=== PATIENT | male | born 1950 | race Caucasian/White ===

== ENCOUNTER 2017-07-31 11:24 | Emergency (ER) | payer MEDICARE, OTHER ==
[~2017-07-31 11:24] MED LIST: ALFU10TA18 PO; ATOR40TA71 PO; CHOL100040 PO; ESOM40CA PO; FLUO10TA3 PO; FLUT15.88 EN; FURO20TA4 PO; HYDR200T4 PO; LACT1CAP79 PO; LISI2.5T2 PO; MONT10TA24 PO; MULT-603 PO; TIOT18CA3 IH
[2017-07-31] MEDS ORDERED: HYDROMORPHONE HCL 2 MG/ML VIAL ONE (12:52)
[2017-07-31 12:57] LABS: BASOPHILS % (AUTO) 0.8 % (0.0-5.0); EOSINOPHILS % (AUTO) 1.7 % (0.0-8.0); HEMATOCRIT 45.5 % (42-54); LYMPHOCYTES % (AUTO) 14.4 % (21.0-51.0); MEAN CORPUSCULAR HEMOGLOBIN 29.6 pg (27.0-33.0); MEAN CORPUSCULAR HGB CONC 33.4 g/dL (32.0-36.0); MEAN CORPUSCULAR VOLUME 88.5 fL (79-99); MONOCYTES % (AUTO) 9.9 % (3.0-13.0); NEUTROPHILS % (AUTO) 73.2 % (40.0-77.0); PLATELET COUNT (AUTO) 189 K/uL (130-400); RED BLOOD CELL COUNT(AUTO) 5.14 MIL/uL (4.50-6.20); RED CELL DISTRIBUTION WIDTH 13.8 % (11.0-15.5); WHITE BLOOD COUNT (AUTO) 7.2 K/uL (4.8-10.8)
[2017-07-31 13:03] LABS: CREATININE 1.1 mg/dL (0.5-1.5); POTASSIUM 4.1 mmol/L (3.5-5.1)
[2017-07-31 14:07] LABS: ERYTHROCYTE SEDIMENTATION RATE 5 MM/HR (0-15)
[2017-10-28] MEDS ORDERED: TRAZ-144 PO (18:26)
== END 2017-07-31 15:22 | disposition home or self-care (01) ==
LOC: EDH 11:24
DX: M79.672 Pain in left foot (principal); J45.909 Unspecified asthma, uncomplicated; J44.9 Chronic obstructive pulmonary disease, unspecified; E11.9 Type 2 diabetes mellitus without complications; E78.5 Hyperlipidemia, unspecified; I10 Essential (primary) hypertension; Z87.442 Personal history of urinary calculi; Z95.1 Presence of aortocoronary bypass graft; Z98.890 Other specified postprocedural states; Z87.891 Personal history of nicotine dependence; Z88.5 Allergy status to narcotic agent; Z88.6 Allergy status to analgesic agent
CPT/HCPCS: 36415; 73630; 80048; 84550; 85025; 85651; 96374; 99285; J1170

== ENCOUNTER → 2017-09-20 | Outpatient (CLI) | payer MEDICARE ==
[~2017-09-20] MED LIST changes: +AEC81 PO; +ALBU2.5V2 IH; +CHOL4PAC21 PO; +FAMO20TA8 PO; +HYDR4 PO; +METO-391 PO; +METO-408 PO; +NITR0.4T SL; +PANT40TA PO; +SUCR1TAB2 PO; +TRAZ-144 PO
== END ==
LOC: RAH 14:00
PROVIDERS: ATTEND Internal Medicine
DX: R05 Cough (principal)
CPT/HCPCS: 71046

== ENCOUNTER 2017-10-28 12:44 | Inpatient (IN) | payer MEDICARE ==
[~2017-10-28] VITALS: Ht 172.7 cm; Wt 66.8 kg
[~2017-10-28 12:44] MED LIST changes: -AEC81 PO; -ALBU2.5V2 IH; -CHOL4PAC21 PO; -FAMO20TA8 PO; -HYDR4 PO; -METO-391 PO; -METO-408 PO; -NITR0.4T SL; -PANT40TA PO; -SUCR1TAB2 PO; -TRAZ-144 PO
[2017-10-28 13:06] LABS: BASOPHILS % (AUTO) 0.9 % (0.0-5.0); EOSINOPHILS % (AUTO) 3.1 % (0.0-8.0); HEMATOCRIT 40.7 % (42-54); LYMPHOCYTES % (AUTO) 16.4 % (21.0-51.0); MEAN CORPUSCULAR HEMOGLOBIN 30.2 pg (27.0-33.0); MEAN CORPUSCULAR HGB CONC 34.8 g/dL (32.0-36.0); MONOCYTES % (AUTO) 9.3 % (3.0-13.0); NEUTROPHILS % (AUTO) 70.3 % (40.0-77.0); NUCLEATED RED BLOOD CELLS 0.1 % (0.0-0.19); PLATELET COUNT (AUTO) 167 K/uL (130-400); RED BLOOD CELL COUNT(AUTO) 4.67 MIL/uL (4.50-6.20); RED CELL DISTRIBUTION WIDTH 13.8 % (11.0-15.5); WHITE BLOOD COUNT (AUTO) 6.7 K/uL (4.8-10.8)
[2017-10-28 13:16] LABS: CREATININE 1.2 mg/dL (0.5-1.5); POTASSIUM 4.3 mmol/L (3.5-5.1)
[2017-10-28 13:23] LABS: ALBUMIN 3.5 g/dL (3.5-5.0); BILIRUBIN,TOTAL 1.3 mg/dL (0.2-1.0); TOTAL PROTEIN, SERUM 6.1 g/dL (6.0-8.3)
[2017-10-28 13:34] LABS: INR 0.99 (0.85-1.15); PARTIAL THROMBOPLASTIN TIME 27.1 SEC (26.3-35.5); PROTHROMBIN TIME 10.4 SEC (9.6-11.6)
[2017-10-28] MEDS ORDERED: ASPIRIN 325 MG TABLET ONE (14:08)
[2017-10-28] MEDS ORDERED: METHYLPREDNISOLONE SOD SUCC 125MG/2ML VIAL ONE (14:08)
[2017-10-28] MEDS ORDERED: IPRATROPIUM/ALBUTEROL SULFATE 3 ML SOLUTION IH ONE ×3 (14:24)
[2017-10-28] MEDS ORDERED: COMPOUND PO MISCELLANEOUS 1 EACH MISC MISC PRN (15:15)
[2017-10-28] MEDS ORDERED: ACETAMINOPHEN 325 MG TAB PO PRN (15:15)
[2017-10-28] MEDS ORDERED: ONDANSETRON HCL MDV 20ML 2 MG/ML VIAL IVP PRN (15:15)
[2017-10-28] MEDS: NITROGLYCERIN 1GM/1 INCH PACKET TD SCH ×2 (15:15→23:44)
[2017-10-28] MEDS: METHYLPREDNISOLONE SOD SUCC 40MG/ML 1ML IVP SCH (15:15)
[2017-10-28] MEDS ORDERED: ENOXAPARIN SODIUM 100 MG/1 ML SQ ONE (15:49)
[2017-10-28] MEDS ORDERED: PANTOPRAZOLE SODIUM 40 MG TABLET.DR PO ONE (15:50)
[2017-10-28] MEDS ORDERED: NITROGLYCERIN 1GM/1 INCH PACKET TD ONE (15:50)
[2017-10-28] MEDS ORDERED: LEVOFLOXACIN 500 MG/D5W 100 ML 100 ML ONE (15:50)
[2017-10-28 17:23] VITALS: BP 129/57
[2017-10-28] MEDS ORDERED: TRAZ-185 PO (18:26)
[2017-10-28] MEDS ORDERED: HYDR4 PO (18:26)
[2017-10-28] MEDS ORDERED: ALBU2.5V2 IH (18:26)
[2017-10-28] MEDS ORDERED: AEC81 PO (18:26)
[2017-10-28 19:05] VITALS: BP 111/57
[2017-10-28 19:40] LABS: CREATINE KINASE MB 3.2 ng/mL (0.5-3.6); CREATINE KINASE, TOTAL 266 U/L (21-232); MYOGLOBIN 91 ng/mL (10-92); TROPONIN I < 0.04 ng/mL (0.00-0.06)
[2017-10-28] MEDS: METOPROLOL TARTRATE 25 MG TAB PO SCH (20:27)
[2017-10-28 23:16] VITALS: BP 129/81
[2017-10-28] MEDS ORDERED: ACETAMINOPHEN-CODEINE 300/30MG TAB PO PRN (23:45)
[2017-10-28] MEDS ORDERED: DiphenhydrAMINE HCL 50 MG/ML VIAL IV PRN (23:45)
[2017-10-29] MEDS: LIDOCAINE HCL 2% VISCOUS 30 ML, MAG HYDROX/AL HYDROX/SIMETH 30 ML, DICYCLOMINE HCL 20 MG PO PRN ×6 (00:43→11:21)
[2017-10-29 01:30] LABS: HEMATOCRIT 41.2 % (42-54); MEAN CORPUSCULAR HEMOGLOBIN 29.7 pg (27.0-33.0); MEAN CORPUSCULAR VOLUME 87.4 fL (79-99); PLATELET COUNT (AUTO) 182 K/uL (130-400); RED BLOOD CELL COUNT(AUTO) 4.71 MIL/uL (4.50-6.20); WHITE BLOOD COUNT (AUTO) 7.9 K/uL (4.8-10.8)
[2017-10-29 01:47] LABS: CREATININE 1.2 mg/dL (0.5-1.5); POTASSIUM 4.8 mmol/L (3.5-5.1)
[2017-10-29 01:57] LABS: CREATINE KINASE MB 3.5 ng/mL (0.5-3.6); CREATINE KINASE, TOTAL 232 U/L (21-232); MYOGLOBIN 138 ng/mL (10-92); TROPONIN I < 0.04 ng/mL (0.00-0.06)
[2017-10-29] MEDS: METHYLPREDNISOLONE SOD SUCC 40MG/ML 1ML IVP SCH ×2 (03:16→15:14)
[2017-10-29 03:24] VITALS: BP 112/64
[2017-10-29] MEDS ORDERED: PANTOPRAZOLE SODIUM 40 MG TABLET.DR PO ONE (06:08)
[2017-10-29] MEDS: PANTOPRAZOLE SODIUM 40 MG TABLET.DR PO SCH (06:27)
[2017-10-29] MEDS: NITROGLYCERIN 1GM/1 INCH PACKET TD SCH ×3 (06:41→22:33)
[2017-10-29 07:00] VITALS: BP 125/65
[2017-10-29] MEDS: ASPIRIN 325MG EC TAB 325 MG TABLET.DR PO SCH (09:39)
[2017-10-29] MEDS: AZITHROMYCIN 500MG+NS 250ML 250 ML IV SCH (09:40)
[2017-10-29] MEDS: METOPROLOL TARTRATE 25 MG TAB PO SCH ×2 (09:40→20:30)
[2017-10-29] MEDS ORDERED: HYDROMORPHONE HCL 2 MG TAB PO PRN (10:00)
[2017-10-29] MEDS: ALBUTEROL SULFATE 0.083% 2.5 MG/3 ML INH IH SCH ×3 (11:13→23:00)
[2017-10-29 11:21] VITALS: BP 133/63
[2017-10-29 16:25] VITALS: BP 98/59
[2017-10-29] MEDS: LACTOBACILLUS RHAMNOSUS GG 1 EACH CAP.SPRINK PO SCH (17:15)
[2017-10-29 19:01] VITALS: BP 104/55
[2017-10-29] MEDS: FLUOXETINE HCL 10 MG CAPSULE PO SCH (20:30)
[2017-10-29] MEDS: MONTELUKAST SODIUM 10 MG TAB PO SCH (20:30)
[2017-10-29] MEDS: ATORVASTATIN CALCIUM 40 MG TABLET PO SCH (20:30)
[2017-10-29] MEDS: TRAZODONE HCL 50 MG TAB PO SCH (20:30)
[2017-10-29] MEDS: ALFUZOSIN HCL 10 MG PO SCH (20:30)
[2017-10-29 22:55] VITALS: BP 120/60
[2017-10-30] VITALS (7 sets, daily range): BP systolic 95–146; BP diastolic 44–85
[2017-10-30] MEDS: METHYLPREDNISOLONE SOD SUCC 40MG/ML 1ML IVP SCH ×2 (02:54→15:14)
[2017-10-30] MEDS: PANTOPRAZOLE SODIUM 40 MG TABLET.DR PO SCH (05:38)
[2017-10-30] MEDS: NITROGLYCERIN 1GM/1 INCH PACKET TD SCH ×2 (05:38→15:14)
[2017-10-30] MEDS: ALBUTEROL SULFATE 0.083% 2.5 MG/3 ML INH IH SCH ×4 (06:08→23:10)
[2017-10-30] MEDS: LACTOBACILLUS RHAMNOSUS GG 1 EACH CAP.SPRINK PO SCH ×2 (07:56→17:01)
[2017-10-30] MEDS: ASPIRIN 325MG EC TAB 325 MG TABLET.DR PO SCH (09:00)
[2017-10-30] MEDS: ***HM***(Cholecalciferol (Vitamin D3) (Vitamin D3) 2,000 UNIT) PO SCH (09:00)
[2017-10-30] MEDS: HYDROXYCHLOROQUINE SULFATE 200 MG TAB PO SCH (10:16)
[2017-10-30] MEDS: LISINOPRIL 2.5 MG TABLET PO SCH (10:16)
[2017-10-30] MEDS: MULTIVITAMIN TABLET PO SCH (10:16)
[2017-10-30] MEDS: METOPROLOL TARTRATE 25 MG TAB PO SCH ×2 (10:16→20:55)
[2017-10-30] MEDS ORDERED: REGADENOSON 0.4 MG/5 ML PF SYG IVP SCH (12:00)
[2017-10-30] MEDS: AZITHROMYCIN 500MG+NS 250ML 250 ML IV SCH (15:14)
[2017-10-30] MEDS: FUROSEMIDE 20 MG TABLET PO SCH (15:17)
[2017-10-30] MEDS: TRAZODONE HCL 50 MG TAB PO SCH (20:54)
[2017-10-30] MEDS: MONTELUKAST SODIUM 10 MG TAB PO SCH (20:54)
[2017-10-30] MEDS: FLUOXETINE HCL 10 MG CAPSULE PO SCH (20:54)
[2017-10-30] MEDS: ATORVASTATIN CALCIUM 40 MG TABLET PO SCH (20:54)
[2017-10-30] MEDS: ALFUZOSIN HCL 10 MG PO SCH (21:00)
[2017-10-31] MEDS: NITROGLYCERIN 1GM/1 INCH PACKET TD SCH ×2 (00:19→06:29)
[2017-10-31 03:24] VITALS: BP 118/65
[2017-10-31] MEDS: METHYLPREDNISOLONE SOD SUCC 40MG/ML 1ML IVP SCH (04:37)
[2017-10-31] MEDS: ALBUTEROL SULFATE 0.083% 2.5 MG/3 ML INH IH SCH ×2 (05:41→11:08)
[2017-10-31] MEDS: PANTOPRAZOLE SODIUM 40 MG TABLET.DR PO SCH (06:29)
[2017-10-31 07:41] VITALS: BP 122/67
[2017-10-31] MEDS: ***HM***(Cholecalciferol (Vitamin D3) (Vitamin D3) 2,000 UNIT) PO SCH (09:00)
[2017-10-31 10:25] LABS: HEMATOCRIT 41.8 % (42-54); MEAN CORPUSCULAR HGB CONC 34.2 g/dL (32.0-36.0); MEAN CORPUSCULAR VOLUME 87.8 fL (79-99); PLATELET COUNT (AUTO) 170 K/uL (130-400); RED BLOOD CELL COUNT(AUTO) 4.76 MIL/uL (4.50-6.20); RED CELL DISTRIBUTION WIDTH 14.2 % (11.0-15.5); WHITE BLOOD COUNT (AUTO) 10.6 K/uL (4.8-10.8)
[2017-10-31 10:32] LABS: CREATININE 1.2 mg/dL (0.5-1.5); POTASSIUM 4.1 mmol/L (3.5-5.1)
[2017-10-31] MEDS: ASPIRIN 325MG EC TAB 325 MG TABLET.DR PO SCH (10:44)
[2017-10-31] MEDS: LISINOPRIL 2.5 MG TABLET PO SCH (10:44)
[2017-10-31] MEDS: METOPROLOL TARTRATE 25 MG TAB PO SCH (10:45)
[2017-10-31] MEDS: LACTOBACILLUS RHAMNOSUS GG 1 EACH CAP.SPRINK PO SCH (10:45)
[2017-10-31] MEDS: MULTIVITAMIN TABLET PO SCH (10:45)
[2017-10-31] MEDS: HYDROXYCHLOROQUINE SULFATE 200 MG TAB PO SCH (10:45)
[2017-10-31] MEDS: FUROSEMIDE 20 MG TABLET PO SCH (10:45)
[2017-10-31 11:21] VITALS: BP 108/47
[2017-10-31] MEDS ORDERED: NITR0.4T SL (11:34)
[2017-10-31] MEDS ORDERED: METO-391 PO (11:34)
[2017-11-01] MEDS ORDERED: PREDNISONE 10 MG TABLET PO SCH (09:00)
== END 2017-10-31 14:35 | disposition home or self-care (01) | DRG 191 ==
LOC: EDH 12:44 → EDHIP 14:24 → OBSVTOIN 14:24 → 2DH 16:38
PROVIDERS: ADMIT Internal Medicine; ATTEND Internal Medicine
DX: J44.1 Chronic obstructive pulmonary disease with (acute) exacerbation (principal); Q21.1 Atrial septal defect; F32.9 Major depressive disorder, single episode, unspecified; E11.9 Type 2 diabetes mellitus without complications; D64.9 Anemia, unspecified; E78.5 Hyperlipidemia, unspecified; G89.29 Other chronic pain; I10 Essential (primary) hypertension; I25.119 Atherosclerotic heart disease of native coronary artery with unspecified angina pectoris; Z87.442 Personal history of urinary calculi; Z87.891 Personal history of nicotine dependence; Z95.1 Presence of aortocoronary bypass graft; Z95.5 Presence of coronary angioplasty implant and graft
CPT/HCPCS: 36415; 71045; 78452; 80048; 80053; 80061; 82550; 82553; 83690; 83874; 84484; 85025; 85027; 85610; 85730; 93005; 93017; 94640; 94664; 96374; A9500; J0456; J1650; J1956; J2785; J2920; J2930

== ENCOUNTER 2017-11-26 13:16 | Emergency (ER) | payer MEDICARE ==
[~2017-11-26 13:16] MED LIST changes: +AEC81 PO; +ALBU2.5V2 IH; +HYDR4 PO; +METO-391 PO; +NITR0.4T SL; +TRAZ-185 PO
[2017-11-26 13:58] LABS: BASOPHILS % (AUTO) 0.4 % (0.0-5.0); EOSINOPHILS % (AUTO) 0.8 % (0.0-8.0); HEMATOCRIT 46.4 % (42-54); LYMPHOCYTES % (AUTO) 11.1 % (21.0-51.0); MEAN CORPUSCULAR HEMOGLOBIN 29.3 pg (27.0-33.0); MEAN CORPUSCULAR HGB CONC 33.4 g/dL (32.0-36.0); MEAN CORPUSCULAR VOLUME 87.9 fL (79-99); MONOCYTES % (AUTO) 10.5 % (3.0-13.0); NEUTROPHILS % (AUTO) 77.2 % (40.0-77.0); PLATELET COUNT (AUTO) 203 K/uL (130-400); RED BLOOD CELL COUNT(AUTO) 5.28 MIL/uL (4.50-6.20); RED CELL DISTRIBUTION WIDTH 14.1 % (11.0-15.5); WHITE BLOOD COUNT (AUTO) 7.3 K/uL (4.8-10.8)
[2017-11-26] MEDS ORDERED: IPRATROPIUM/ALBUTEROL SULFATE 3 ML SOLUTION IH ONE (14:00)
[2017-11-26 14:05] LABS: CREATININE 1.3 mg/dL (0.5-1.5); POTASSIUM 3.7 mmol/L (3.5-5.1)
[2017-11-26 14:07] LABS: PARTIAL THROMBOPLASTIN TIME 26.1 SEC (26.3-35.5); PROTHROMBIN TIME 10.5 SEC (9.6-11.6)
[2017-11-26] MEDS ORDERED: ONDANSETRON HCL 4 MG/2 ML VIAL ONE (14:13)
[2017-11-26] MEDS ORDERED: FENTANYL CITRATE PF 50 MCG/1 ML 2ML VIAL ONE (14:14)
[2017-11-26 14:20] LABS: CREATINE KINASE MB 1.8 ng/mL (0.5-3.6)
[2017-11-26 14:50] LABS: APPEARANCE,URINE Clear (CLEAR); BILIRUBIN,URINE Negative (NEGATIVE); COLOR,URINE Dark Yellow (YELLOW); GLUCOSE, URINE (UA) Negative (NEGATIVE); KETONES,URINE Negative (NEGATIVE); LEUKOCYTE ESTERASE ,URINE Small (NEGATIVE); NITRATE,URINE Negative (NEGATIVE); OCCULT BLOOD,URINE Trace (NEGATIVE); PROTEIN,URINE Trace (NEGATIVE)
[2017-11-26 15:17] LABS: BACTERIA,URINE Rare /HPF (None Seen)
[2017-11-26 15:21] LABS: SQUAMOUS EPITHELIAL CELL,UR Rare /HPF (0-2)
[2017-11-26] MEDS ORDERED: HYDROMORPHONE HCL 0.5 MG/0.5 ML ML ONE (15:44)
== END 2017-11-26 16:43 | disposition home or self-care (01) ==
LOC: EDH 13:16
DX: J44.1 Chronic obstructive pulmonary disease with (acute) exacerbation (principal); R10.9 Unspecified abdominal pain; N28.1 Cyst of kidney, acquired; I25.10 Atherosclerotic heart disease of native coronary artery without angina pectoris; E11.9 Type 2 diabetes mellitus without complications; E78.5 Hyperlipidemia, unspecified; Z88.6 Allergy status to analgesic agent; Z88.8 Allergy status to other drugs, medicaments and biological substances; Z90.79 Acquired absence of other genital organ(s); Z95.1 Presence of aortocoronary bypass graft; Z98.890 Other specified postprocedural states; Z87.891 Personal history of nicotine dependence
CPT/HCPCS: 36415; 71045; 74176; 80048; 81001; 82150; 82550; 82553; 83690; 83880; 84484; 85025; 85610; 85730; 93005; 94640; 96374; 96375; 99285; J1170; J2405; J3010

== ENCOUNTER 2017-11-28 07:22 | Emergency (ER) | payer MEDICARE ==
[2017-11-28 07:51] LABS: EOSINOPHILS % (AUTO) 3.6 % (0.0-8.0); HEMATOCRIT 44.9 % (42-54); MEAN CORPUSCULAR HEMOGLOBIN 29.3 pg (27.0-33.0); MEAN CORPUSCULAR HGB CONC 33.5 g/dL (32.0-36.0); MEAN CORPUSCULAR VOLUME 87.5 fL (79-99); MONOCYTES % (AUTO) 10.5 % (3.0-13.0); NEUTROPHILS % (AUTO) 71.9 % (40.0-77.0); PLATELET COUNT (AUTO) 207 K/uL (130-400); RED BLOOD CELL COUNT(AUTO) 5.13 MIL/uL (4.50-6.20); RED CELL DISTRIBUTION WIDTH 14.2 % (11.0-15.5); WHITE BLOOD COUNT (AUTO) 7.9 K/uL (4.8-10.8)
[2017-11-28] MEDS ORDERED: MAG HYDROX/AL HYDROX/SIMETH ES 30 ML SUSP UDCUP ONE (07:51)
[2017-11-28] MEDS ORDERED: METOCLOPRAMIDE 10 MG/2 ML VIAL ONE (07:51)
[2017-11-28] MEDS ORDERED: LIDOCAINE HCL 2% VISCOUS 15 ML UDCUP ONE (07:51)
[2017-11-28] MEDS ORDERED: HYDROMORPHONE HCL 0.5 MG/0.5 ML ML ONE (07:52)
[2017-11-28] MEDS ORDERED: LACTATED RINGERS 1000ML 1,000 ML IV ONE (07:52)
[2017-11-28] MEDS ORDERED: FAMOTIDINE/PF 20 MG/2 ML VIAL IV ONE (07:53)
[2017-11-28] MEDS ORDERED: SODIUM CHLORIDE 0.9% 100 ML IV ONE (07:54)
[2017-11-28 08:08] LABS: CREATININE 1.3 mg/dL (0.5-1.5); POTASSIUM 4.4 mmol/L (3.5-5.1)
[2017-11-28 08:13] LABS: ALBUMIN 3.6 g/dL (3.5-5.0); BILIRUBIN,TOTAL 1.5 mg/dL (0.2-1.0); TOTAL PROTEIN, SERUM 6.9 g/dL (6.0-8.3)
[2017-11-28 09:49] LABS: APPEARANCE,URINE Clear (CLEAR); BILIRUBIN,URINE Negative (NEGATIVE); COLOR,URINE Yellow (YELLOW); GLUCOSE, URINE (UA) Negative (NEGATIVE); KETONES,URINE Negative (NEGATIVE); LEUKOCYTE ESTERASE ,URINE Trace (NEGATIVE); NITRATE,URINE Negative (NEGATIVE); OCCULT BLOOD,URINE Negative (NEGATIVE); PROTEIN,URINE Negative (NEGATIVE)
[2017-11-28 10:00] LABS: BACTERIA,URINE None Seen /HPF (None Seen); RBC,URINE 0-1 /HPF (0-1); SQUAMOUS EPITHELIAL CELL,UR 0-2 /HPF (0-2); WBC,URINE 0-1 /HPF (0-1)
[2017-11-29] MEDS ORDERED: METO-408 PO (17:06)
[2017-11-29] MEDS ORDERED: FAMO20TA8 PO (17:06)
[2017-11-29] MEDS ORDERED: SUCR1TAB2 PO (17:06)
== END 2017-11-28 10:45 | disposition home or self-care (01) ==
LOC: EDH 07:22
DX: K29.70 Gastritis, unspecified, without bleeding (principal); R10.12 Left upper quadrant pain; I25.10 Atherosclerotic heart disease of native coronary artery without angina pectoris; J44.9 Chronic obstructive pulmonary disease, unspecified; E11.9 Type 2 diabetes mellitus without complications; E78.5 Hyperlipidemia, unspecified; Z88.5 Allergy status to narcotic agent; Z88.6 Allergy status to analgesic agent; Z91.041 Radiographic dye allergy status
CPT/HCPCS: 36415; 80053; 81001; 82150; 82550; 83605; 83690; 84484; 85025; 93005; 96374; 96375; 96376; 99285; J1170; J2765; J3490; J7120

== ENCOUNTER 2017-11-29 07:43 | Inpatient (IN) | payer MEDICARE ==
[~2017-11-29] VITALS: Ht 172.7 cm; Wt 70.3 kg
[2017-11-29 08:16] LABS: BASOPHILS % (AUTO) 3.1 % (0.0-5.0); EOSINOPHILS % (AUTO) 3.2 % (0.0-8.0); HEMATOCRIT 43.4 % (42-54); LYMPHOCYTES % (AUTO) 11.2 % (21.0-51.0); MEAN CORPUSCULAR HEMOGLOBIN 29.4 pg (27.0-33.0); MEAN CORPUSCULAR HGB CONC 33.5 g/dL (32.0-36.0); MEAN CORPUSCULAR VOLUME 87.8 fL (79-99); MONOCYTES % (AUTO) 8.3 % (3.0-13.0); NEUTROPHILS % (AUTO) 74.2 % (40.0-77.0); PLATELET COUNT (AUTO) 183 K/uL (130-400); RED BLOOD CELL COUNT(AUTO) 4.95 MIL/uL (4.50-6.20); RED CELL DISTRIBUTION WIDTH 13.9 % (11.0-15.5); WHITE BLOOD COUNT (AUTO) 5.9 K/uL (4.8-10.8)
[2017-11-29 08:28] LABS: CREATININE 1.2 mg/dL (0.5-1.5); POTASSIUM 4.3 mmol/L (3.5-5.1)
[2017-11-29 08:33] LABS: ALBUMIN 3.6 g/dL (3.5-5.0); BILIRUBIN,TOTAL 1.7 mg/dL (0.2-1.0); TOTAL PROTEIN, SERUM 6.6 g/dL (6.0-8.3)
[2017-11-29 08:39] LABS: B-TYPE NATRIURETIC PEPTIDE 181 pg/mL (0-100)
[2017-11-29] MEDS ORDERED: HYOSCYAMINE SULFATE 0.125 MG TAB.SUBL SL ONE (09:11)
[2017-11-29 09:23] LABS: APPEARANCE,URINE Clear (CLEAR); BILIRUBIN,URINE Negative (NEGATIVE); COLOR,URINE Yellow (YELLOW); GLUCOSE, URINE (UA) Negative (NEGATIVE); KETONES,URINE Negative (NEGATIVE); LEUKOCYTE ESTERASE ,URINE Negative (NEGATIVE); NITRATE,URINE Negative (NEGATIVE); OCCULT BLOOD,URINE Negative (NEGATIVE); PROTEIN,URINE Negative (NEGATIVE)
[2017-11-29 09:29] LABS: AMPHET/METH SCREEN,URINE NEGATIVE (NEGATIVE); BARBITURATE SCREEN, URINE NEGATIVE (NEGATIVE); BENZODIAZEPINES SCREEN,URINE NEGATIVE (NEGATIVE); CANNABINOID SCREEN,URINE NEGATIVE (NEGATIVE); COCAINE SCREEN,URINE NEGATIVE (NEGATIVE); OPIATE SCREEN,URINE NEGATIVE (NEGATIVE); PHENCYCLIDINE SCREEN,URINE NEGATIVE (NEGATIVE)
[2017-11-29] MEDS: SODIUM CHLORIDE 0.9% 1000ML 1,000 ML IV SCH (10:45)
[2017-11-29] MEDS ORDERED: SODIUM CHLORIDE 0.9% 1000ML 1,000 ML IV ONE (13:58)
[2017-11-29] MEDS ORDERED: MORPHINE SULFATE 4 MG/1ML SYG ONE (14:11)
[2017-11-29] MEDS ORDERED: ONDANSETRON HCL 4 MG/2 ML VIAL ONE (14:16)
[2017-11-29] MEDS ORDERED: HYDROMORPHONE HCL 0.5 MG/0.5 ML ML ONE (14:39)
[2017-11-29] MEDS ORDERED: ACETAMINOPHEN 325 MG TAB PO PRN (15:00)
[2017-11-29 16:20] VITALS: BP 143/60
[2017-11-29] MEDS ORDERED: SUCR1TAB2 PO (17:06)
[2017-11-29] MEDS ORDERED: FAMO20TA8 PO (17:06)
[2017-11-29] MEDS ORDERED: METO-408 PO (17:06)
[2017-11-29 20:00] VITALS: BP 133/70
[2017-11-29] MEDS ORDERED: NITROGLYCERIN 0.4 MG SL TAB SL SCH (20:00)
[2017-11-29] MEDS ORDERED: NON-FORMULARY MEDICATION 1 EACH (Hydromorphone HCl (Dilaudid) 4 MG) PO PRN (20:00)
[2017-11-29] MEDS ORDERED: ALBUTEROL SULFATE 0.083% 2.5 MG/3 ML INH IH ONE (20:31)
[2017-11-29] MEDS: ALFUZOSIN HCL 10 MG PO SCH (21:00)
[2017-11-29] MEDS: ATORVASTATIN CALCIUM 40 MG TABLET PO SCH (21:20)
[2017-11-29] MEDS: MONTELUKAST SODIUM 10 MG TAB PO SCH (21:20)
[2017-11-29] MEDS: FLUOXETINE HCL 10 MG CAPSULE PO SCH (21:21)
[2017-11-29] MEDS: TRAZODONE HCL 50 MG TAB PO SCH (21:21)
[2017-11-29] MEDS: SUCRALFATE 1 GM TABLET PO SCH (21:21)
[2017-11-29] MEDS: METOPROLOL TARTRATE 25 MG TAB PO SCH (21:22)
[2017-11-29 23:51] VITALS: BP 130/72
[2017-11-30] MEDS ORDERED: ALBUTEROL SULFATE 0.083% 2.5 MG/3 ML INH IH SCH
[2017-11-30] MEDS: SODIUM CHLORIDE 0.9% 1000ML 1,000 ML IV SCH ×3 (00:05→20:56)
[2017-11-30] MEDS: IPRATROPIUM/ALBUTEROL SULFATE 3 ML SOLUTION IH SCH ×5 (01:13→23:18)
[2017-11-30 04:00] VITALS: BP 140/79
[2017-11-30] MEDS: SUCRALFATE 1 GM TABLET PO SCH ×4 (06:17→20:55)
[2017-11-30 07:00] VITALS: BP 124/55
[2017-11-30] MEDS: HYDROXYCHLOROQUINE SULFATE 200 MG TAB PO SCH (08:39)
[2017-11-30] MEDS: HYDROMORPHONE HCL 0.5 MG/0.5 ML ML IVP PRN ×2 (08:39→21:03)
[2017-11-30] MEDS: ASPIRIN 81 MG EC TAB PO SCH (08:39)
[2017-11-30] MEDS: LISINOPRIL 2.5 MG TABLET PO SCH (08:40)
[2017-11-30] MEDS: FUROSEMIDE 20 MG TABLET PO SCH (08:40)
[2017-11-30] MEDS: MULTIVITAMIN TABLET PO SCH (08:40)
[2017-11-30] MEDS: METOPROLOL TARTRATE 25 MG TAB PO SCH ×2 (09:00→20:55)
[2017-11-30] MEDS ORDERED: SUB TO IPRATROPIUM 0.5MG/2.5ML PER P&T IH SCH (09:00)
[2017-11-30] MEDS: ***HM***(Cholecalciferol (Vitamin D3) (Vitamin D3) 2,000 UNIT) PO SCH (09:00)
[2017-11-30 11:00] VITALS: BP 130/53
[2017-11-30 15:00] VITALS: BP 130/69
[2017-11-30 19:45] VITALS: BP 136/68
[2017-11-30] MEDS ORDERED: LACTULOSE 20 GM/30 ML UDCUP PO SCH (20:00)
[2017-11-30] MEDS: ATORVASTATIN CALCIUM 40 MG TABLET PO SCH (20:55)
[2017-11-30] MEDS: MONTELUKAST SODIUM 10 MG TAB PO SCH (20:55)
[2017-11-30] MEDS: TRAZODONE HCL 50 MG TAB PO SCH (20:55)
[2017-11-30] MEDS: FLUOXETINE HCL 10 MG CAPSULE PO SCH (20:55)
[2017-11-30] MEDS: ALFUZOSIN HCL 10 MG PO SCH (20:56)
[2017-11-30 23:35] VITALS: BP 90/52
[2017-12-01] MEDS: SODIUM CHLORIDE 0.9% 1000ML 1,000 ML IV SCH ×2 (02:45→17:54)
[2017-12-01 03:55] VITALS: BP 114/59
[2017-12-01 05:15] LABS: HEMATOCRIT 37.8 % (42-54); MEAN CORPUSCULAR HEMOGLOBIN 29.9 pg (27.0-33.0); MEAN CORPUSCULAR HGB CONC 34.2 g/dL (32.0-36.0); MEAN CORPUSCULAR VOLUME 87.4 fL (79-99); PLATELET COUNT (AUTO) 170 K/uL (130-400); RED BLOOD CELL COUNT(AUTO) 4.33 MIL/uL (4.50-6.20); RED CELL DISTRIBUTION WIDTH 13.8 % (11.0-15.5); WHITE BLOOD COUNT (AUTO) 5.4 K/uL (4.8-10.8)
[2017-12-01 05:19] LABS: CREATININE 1.3 mg/dL (0.5-1.5); POTASSIUM 3.9 mmol/L (3.5-5.1)
[2017-12-01] MEDS: SUCRALFATE 1 GM TABLET PO SCH ×4 (06:08→21:07)
[2017-12-01] MEDS: IPRATROPIUM/ALBUTEROL SULFATE 3 ML SOLUTION IH SCH ×4 (06:56→23:50)
[2017-12-01 07:43] VITALS: BP 125/52
[2017-12-01] MEDS: MULTIVITAMIN TABLET PO SCH (08:13)
[2017-12-01] MEDS: FUROSEMIDE 20 MG TABLET PO SCH (08:13)
[2017-12-01] MEDS: ASPIRIN 81 MG EC TAB PO SCH (08:14)
[2017-12-01] MEDS: HYDROXYCHLOROQUINE SULFATE 200 MG TAB PO SCH (08:14)
[2017-12-01] MEDS: LISINOPRIL 2.5 MG TABLET PO SCH (08:14)
[2017-12-01] MEDS ORDERED: LACTULOSE 20 GM/30 ML UDCUP PO SCH (08:15)
[2017-12-01] MEDS: ***HM***(Cholecalciferol (Vitamin D3) (Vitamin D3) 2,000 UNIT) PO SCH (09:00)
[2017-12-01] MEDS: METOPROLOL TARTRATE 25 MG TAB PO SCH ×2 (09:00→21:07)
[2017-12-01] MEDS: HYDROMORPHONE HCL 0.5 MG/0.5 ML ML IVP PRN ×2 (10:08→18:26)
[2017-12-01 11:20] VITALS: BP 129/60
[2017-12-01] MEDS ORDERED: FUROSEMIDE 10 MG/ML 2ML VIAL ONE (11:49)
[2017-12-01 16:15] VITALS: BP 129/72
[2017-12-01] MEDS: ALFUZOSIN HCL 10 MG PO SCH (19:54)
[2017-12-01 20:00] VITALS: BP 116/63
[2017-12-01] MEDS: MONTELUKAST SODIUM 10 MG TAB PO SCH (21:06)
[2017-12-01] MEDS: TRAZODONE HCL 50 MG TAB PO SCH (21:07)
[2017-12-01] MEDS: FLUOXETINE HCL 10 MG CAPSULE PO SCH (21:07)
[2017-12-01] MEDS: ATORVASTATIN CALCIUM 40 MG TABLET PO SCH (21:07)
[2017-12-02] VITALS: BP 121/60
[2017-12-02 04:00] VITALS: BP 123/63
[2017-12-02] MEDS: SODIUM CHLORIDE 0.9% 1000ML 1,000 ML IV SCH ×2 (04:30→18:45)
[2017-12-02 04:44] LABS: CREATININE 1.2 mg/dL (0.5-1.5); HEMATOCRIT 39.3 % (42-54); MEAN CORPUSCULAR HEMOGLOBIN 29.7 pg (27.0-33.0); MEAN CORPUSCULAR VOLUME 87.3 fL (79-99); PLATELET COUNT (AUTO) 170 K/uL (130-400); RED CELL DISTRIBUTION WIDTH 13.9 % (11.0-15.5); WHITE BLOOD COUNT (AUTO) 6.8 K/uL (4.8-10.8)
[2017-12-02] MEDS: IPRATROPIUM/ALBUTEROL SULFATE 3 ML SOLUTION IH SCH ×3 (06:57→18:00)
[2017-12-02 07:23] VITALS: BP 126/65
[2017-12-02] MEDS ORDERED: LACTULOSE 20 GM/30 ML UDCUP PO SCH (08:45)
[2017-12-02] MEDS: ***HM***(Cholecalciferol (Vitamin D3) (Vitamin D3) 2,000 UNIT) PO SCH (09:00)
[2017-12-02] MEDS: SUCRALFATE 1 GM TABLET PO SCH ×4 (09:03→21:07)
[2017-12-02] MEDS: HYDROXYCHLOROQUINE SULFATE 200 MG TAB PO SCH (09:03)
[2017-12-02] MEDS: ASPIRIN 81 MG EC TAB PO SCH (09:03)
[2017-12-02] MEDS: METOPROLOL TARTRATE 25 MG TAB PO SCH ×2 (09:04→21:07)
[2017-12-02] MEDS: MULTIVITAMIN TABLET PO SCH (09:04)
[2017-12-02] MEDS: LISINOPRIL 2.5 MG TABLET PO SCH (09:04)
[2017-12-02] MEDS: FUROSEMIDE 20 MG TABLET PO SCH (09:05)
[2017-12-02 11:15] VITALS: BP 122/76
[2017-12-02] MEDS: HYDROMORPHONE HCL 0.5 MG/0.5 ML ML IVP PRN ×2 (14:16→22:21)
[2017-12-02 16:00] VITALS: BP 138/83
[2017-12-02] MEDS ORDERED: HYDROCORTISONE 25 MG SUPPOSITORY PR SCH (16:15)
[2017-12-02] MEDS ORDERED: LACTULOSE 20 GM/30 ML UDCUP PO PRN (16:45)
[2017-12-02 20:08] VITALS: BP 156/84
[2017-12-02] MEDS: ALFUZOSIN HCL 10 MG PO SCH (21:00)
[2017-12-02] MEDS: FLUOXETINE HCL 10 MG CAPSULE PO SCH (21:07)
[2017-12-02] MEDS: MONTELUKAST SODIUM 10 MG TAB PO SCH (21:07)
[2017-12-02] MEDS: ATORVASTATIN CALCIUM 40 MG TABLET PO SCH (21:07)
[2017-12-02] MEDS: TRAZODONE HCL 50 MG TAB PO SCH (21:07)
[2017-12-03 00:08] VITALS: BP 143/78
[2017-12-03 04:08] VITALS: BP 125/74
[2017-12-03 04:42] LABS: HEMATOCRIT 41.6 % (42-54); MEAN CORPUSCULAR HEMOGLOBIN 29.4 pg (27.0-33.0); MEAN CORPUSCULAR HGB CONC 33.4 g/dL (32.0-36.0); NUCLEATED RED BLOOD CELLS 0.1 % (0.0-0.19); PLATELET COUNT (AUTO) 206 K/uL (130-400); RED BLOOD CELL COUNT(AUTO) 4.73 MIL/uL (4.50-6.20); WHITE BLOOD COUNT (AUTO) 9.7 K/uL (4.8-10.8)
[2017-12-03 04:45] LABS: CREATININE 1.1 mg/dL (0.5-1.5); POTASSIUM 3.2 mmol/L (3.5-5.1)
[2017-12-03] MEDS ORDERED: POTASSIUM CHLORIDE 20 MEQ ERTAB PO ONE (04:51)
[2017-12-03] MEDS ORDERED: LIDOCAINE HCL-MPF 1% 2ML VIAL IVP PRN (05:00)
[2017-12-03] MEDS ORDERED: POTASSIUM CHLORIDE 20MEQ/100ML 100 ML IV PRN (05:00)
[2017-12-03] MEDS ORDERED: POTASSIUM CHLORIDE 10% ELIXIR 20 MEQ/15 ML UDCUP PO PRN (05:00)
[2017-12-03] MEDS: IPRATROPIUM/ALBUTEROL SULFATE 3 ML SOLUTION IH SCH ×4 (06:00→18:21)
[2017-12-03] MEDS: SUCRALFATE 1 GM TABLET PO SCH ×4 (06:54→20:11)
[2017-12-03] MEDS: POTASSIUM CHLORIDE 20 MEQ ERTAB PO PRN ×2 (06:55→10:56)
[2017-12-03 08:26] VITALS: BP 114/77
[2017-12-03] MEDS: ***HM***(Cholecalciferol (Vitamin D3) (Vitamin D3) 2,000 UNIT) PO SCH (09:00)
[2017-12-03] MEDS: ASPIRIN 81 MG EC TAB PO SCH (10:52)
[2017-12-03] MEDS: MULTIVITAMIN TABLET PO SCH (10:52)
[2017-12-03] MEDS: LISINOPRIL 2.5 MG TABLET PO SCH (10:52)
[2017-12-03] MEDS: FUROSEMIDE 20 MG TABLET PO SCH (10:52)
[2017-12-03] MEDS: METOPROLOL TARTRATE 25 MG TAB PO SCH ×2 (10:53→20:11)
[2017-12-03] MEDS: HYDROXYCHLOROQUINE SULFATE 200 MG TAB PO SCH (10:55)
[2017-12-03] MEDS: HYDROMORPHONE HCL 0.5 MG/0.5 ML ML IVP PRN ×3 (11:00→21:46)
[2017-12-03] MEDS: ONDANSETRON HCL 4 MG/2 ML VIAL IVP PRN ×3 (11:13→18:34)
[2017-12-03 11:35] VITALS: BP 157/79
[2017-12-03 16:22] VITALS: BP 126/64
[2017-12-03] MEDS ORDERED: PEG 3350/NA SULF,BICARB,CL/KCL 4000 ML SOLN PO SCH (18:00)
[2017-12-03] MEDS: MONTELUKAST SODIUM 10 MG TAB PO SCH (20:11)
[2017-12-03] MEDS: FLUOXETINE HCL 10 MG CAPSULE PO SCH (20:11)
[2017-12-03] MEDS: TRAZODONE HCL 50 MG TAB PO SCH (20:11)
[2017-12-03] MEDS: ATORVASTATIN CALCIUM 40 MG TABLET PO SCH (20:11)
[2017-12-03] MEDS: ALFUZOSIN HCL 10 MG PO SCH (20:12)
[2017-12-03 20:20] VITALS: BP 135/75
[2017-12-04] VITALS (18 sets, daily range): BP systolic 89–135; BP diastolic 38–71
[2017-12-04] MEDS: IPRATROPIUM/ALBUTEROL SULFATE 3 ML SOLUTION IH SCH ×4 (00:34→19:30)
[2017-12-04] MEDS: HYDROMORPHONE HCL 0.5 MG/0.5 ML ML IVP PRN ×2 (02:53→07:21)
[2017-12-04 04:55] LABS: BASOPHILS % (AUTO) 0.4 % (0.0-5.0); EOSINOPHILS % (AUTO) 0.7 % (0.0-8.0); HEMATOCRIT 38.5 % (42-54); LYMPHOCYTES % (AUTO) 11.7 % (21.0-51.0); MEAN CORPUSCULAR HEMOGLOBIN 29.7 pg (27.0-33.0); MEAN CORPUSCULAR VOLUME 87.5 fL (79-99); MONOCYTES % (AUTO) 12.5 % (3.0-13.0); NEUTROPHILS % (AUTO) 74.7 % (40.0-77.0); PLATELET COUNT (AUTO) 205 K/uL (130-400); RED CELL DISTRIBUTION WIDTH 13.7 % (11.0-15.5); WHITE BLOOD COUNT (AUTO) 9.7 K/uL (4.8-10.8)
[2017-12-04 05:07] LABS: CREATININE 1.3 mg/dL (0.5-1.5); MAGNESIUM 1.5 mg/dL (1.80-2.40); POTASSIUM 3.5 mmol/L (3.5-5.1)
[2017-12-04] MEDS: SUCRALFATE 1 GM TABLET PO SCH ×4 (06:21→20:50)
[2017-12-04] MEDS: ONDANSETRON HCL 4 MG/2 ML VIAL IVP PRN (07:21)
[2017-12-04] MEDS: METOPROLOL TARTRATE 25 MG TAB PO SCH ×2 (07:58→20:57)
[2017-12-04] MEDS: ***HM***(Cholecalciferol (Vitamin D3) (Vitamin D3) 2,000 UNIT) PO SCH (09:00)
[2017-12-04] MEDS ORDERED: MAGNESIUM 2GM PREMIX 50ML 50 ML IV SCH (11:00)
[2017-12-04] MEDS ORDERED: PROPOFOL 10 MG/ML 20ML VIAL IV ONE ×2 (12:15→12:32)
[2017-12-04] MEDS: ASPIRIN 81 MG EC TAB PO SCH (17:21)
[2017-12-04] MEDS: MULTIVITAMIN TABLET PO SCH (17:21)
[2017-12-04] MEDS: LISINOPRIL 2.5 MG TABLET PO SCH (17:21)
[2017-12-04] MEDS: FUROSEMIDE 20 MG TABLET PO SCH (17:22)
[2017-12-04] MEDS: HYDROXYCHLOROQUINE SULFATE 200 MG TAB PO SCH (17:23)
[2017-12-04] MEDS: ALFUZOSIN HCL 10 MG PO SCH (20:50)
[2017-12-04] MEDS: FLUOXETINE HCL 10 MG CAPSULE PO SCH (20:50)
[2017-12-04] MEDS: ATORVASTATIN CALCIUM 40 MG TABLET PO SCH (20:50)
[2017-12-04] MEDS: MONTELUKAST SODIUM 10 MG TAB PO SCH (20:50)
[2017-12-04] MEDS: TRAZODONE HCL 50 MG TAB PO SCH (20:50)
[2017-12-05 00:20] VITALS: BP 110/53
[2017-12-05] MEDS: IPRATROPIUM/ALBUTEROL SULFATE 3 ML SOLUTION IH SCH ×3 (00:25→10:57)
[2017-12-05 04:36] VITALS: BP 159/58
[2017-12-05 04:59] LABS: BASOPHILS % (AUTO) 0.7 % (0.0-5.0); LYMPHOCYTES % (AUTO) 16.4 % (21.0-51.0); MEAN CORPUSCULAR HEMOGLOBIN 29.5 pg (27.0-33.0); MEAN CORPUSCULAR HGB CONC 33.7 g/dL (32.0-36.0); MEAN CORPUSCULAR VOLUME 87.3 fL (79-99); MONOCYTES % (AUTO) 13.4 % (3.0-13.0); NEUTROPHILS % (AUTO) 67.5 % (40.0-77.0); PLATELET COUNT (AUTO) 157 K/uL (130-400); RED BLOOD CELL COUNT(AUTO) 4.12 MIL/uL (4.50-6.20); RED CELL DISTRIBUTION WIDTH 13.6 % (11.0-15.5); WHITE BLOOD COUNT (AUTO) 6.3 K/uL (4.8-10.8)
[2017-12-05] MEDS: HYDROMORPHONE HCL 0.5 MG/0.5 ML ML IVP PRN (05:13)
[2017-12-05 05:19] LABS: ALBUMIN 2.8 g/dL (3.5-5.0); BILIRUBIN,TOTAL 1.2 mg/dL (0.2-1.0); CREATININE 1.2 mg/dL (0.5-1.5); MAGNESIUM 1.6 mg/dL (1.80-2.40); POTASSIUM 3.6 mmol/L (3.5-5.1); TOTAL PROTEIN, SERUM 5.5 g/dL (6.0-8.3)
[2017-12-05 08:00] VITALS: BP 116/58
[2017-12-05] MEDS: HYDROXYCHLOROQUINE SULFATE 200 MG TAB PO SCH (08:25)
[2017-12-05] MEDS: FUROSEMIDE 20 MG TABLET PO SCH (08:25)
[2017-12-05] MEDS: MULTIVITAMIN TABLET PO SCH (08:25)
[2017-12-05] MEDS: METOPROLOL TARTRATE 25 MG TAB PO SCH (08:26)
[2017-12-05] MEDS: ASPIRIN 81 MG EC TAB PO SCH (08:26)
[2017-12-05] MEDS: SUCRALFATE 1 GM TABLET PO SCH ×2 (08:26→12:27)
[2017-12-05] MEDS: ***HM***(Cholecalciferol (Vitamin D3) (Vitamin D3) 2,000 UNIT) PO SCH (08:27)
[2017-12-05] MEDS: LISINOPRIL 2.5 MG TABLET PO SCH (08:30)
[2017-12-05 11:00] VITALS: BP 129/71
[2017-12-05] MEDS ORDERED: CHOLESTYRAMINE PACKET 4 GM PACKET PO SCH (12:00)
[2017-12-05] MEDS ORDERED: SIMETHICONE 80 MG TAB.CHEW PO PRN (13:00)
[2017-12-05] MEDS ORDERED: MAGNESIUM 2GM PREMIX 50ML 50 ML IV SCH (13:15)
[2017-12-05] MEDS ORDERED: CHOL4PAC21 PO (15:30)
[2017-12-05] MEDS ORDERED: PANT40TA PO (15:31)
== END 2017-12-05 17:07 | disposition home or self-care (01) | DRG 378 ==
LOC: EDH 07:43 → EDHIP 10:00 → 4AH 14:57 → 4BH 15:26
PROVIDERS: ADMIT Family Medicine; ATTEND Family Medicine
PROC: 0DBH8ZZ Excision of Cecum, Via Natural or Artificial Opening Endoscopic (ICD-10-PCS; principal; 2017-12-04)
PROC: 0DBL8ZZ Excision of Transverse Colon, Via Natural or Artificial Opening Endoscopic (ICD-10-PCS; 2017-12-04)
PROC: 0DBK8ZX Excision of Ascending Colon, Via Natural or Artificial Opening Endoscopic, Diagnostic (ICD-10-PCS; 2017-12-04)
PROC: 0DBM8ZX Excision of Descending Colon, Via Natural or Artificial Opening Endoscopic, Diagnostic (ICD-10-PCS; 2017-12-04)
DX: K92.1 Melena (principal); J98.11 Atelectasis; K64.9 Unspecified hemorrhoids; N20.0 Calculus of kidney; K52.9 Noninfective gastroenteritis and colitis, unspecified; K21.9 Gastro-esophageal reflux disease without esophagitis; D64.9 Anemia, unspecified; E11.9 Type 2 diabetes mellitus without complications; E78.5 Hyperlipidemia, unspecified; F32.9 Major depressive disorder, single episode, unspecified; G14 Postpolio syndrome; I10 Essential (primary) hypertension; I25.10 Atherosclerotic heart disease of native coronary artery without angina pectoris; J44.9 Chronic obstructive pulmonary disease, unspecified; K59.00 Constipation, unspecified; G89.29 Other chronic pain; Z95.1 Presence of aortocoronary bypass graft; Z88.5 Allergy status to narcotic agent; Z87.891 Personal history of nicotine dependence; Z88.8 Allergy status to other drugs, medicaments and biological substances; Z91.041 Radiographic dye allergy status; Z90.49 Acquired absence of other specified parts of digestive tract
CPT/HCPCS: 36415; 71045; 74176; 76700; 78708; 80048; 80053; 80305; 81001; 81003; 82150; 82270; 82550; 82553; 82948; 83605; 83690; 83735; 83880; 84484; 85025; 85027; 85610; 85730; 87507; 88305; 93005; 94640; 94664; A9562; J1170; J1940; J2270; J2405; J2704; J3475; J3480; J3490; J7030

== ENCOUNTER 2018-03-06 15:29 | Emergency (ER) | payer MEDICARE ==
[~2018-03-06 15:29] MED LIST changes: +CHOL4PAC21 PO; -FLUT15.88 EN; -LACT1CAP79 PO; -METO-391 PO; +METO-408 PO; +PANT40TA PO; +SUCR1TAB2 PO
[2018-03-06] MEDS ORDERED: HYDROMORPHONE 1 MG/1 ML AMP ONE (15:59)
[2018-03-06] MEDS ORDERED: ONDANSETRON ODT 4 MG TAB ONE (15:59)
[2018-03-06] MEDS ORDERED: TETANUS/DIPHTHERIA TOXOID [ADULT] 0.5 ML VIAL IM ONE (16:00)
== END 2018-03-06 17:02 | disposition home or self-care (01) ==
LOC: EDH 15:29
DX: S30.0XXA Contusion of lower back and pelvis, initial encounter (principal); J45.909 Unspecified asthma, uncomplicated; I25.10 Atherosclerotic heart disease of native coronary artery without angina pectoris; J44.9 Chronic obstructive pulmonary disease, unspecified; E11.9 Type 2 diabetes mellitus without complications; E78.5 Hyperlipidemia, unspecified; I10 Essential (primary) hypertension; Z87.442 Personal history of urinary calculi; Z88.6 Allergy status to analgesic agent; Z88.8 Allergy status to other drugs, medicaments and biological substances; Z90.49 Acquired absence of other specified parts of digestive tract; Z98.890 Other specified postprocedural states; Z87.891 Personal history of nicotine dependence; W18.39XA Other fall on same level, initial encounter; Y93.01 Activity, walking, marching and hiking; Y92.89 Other specified places as the place of occurrence of the external cause; Y99.8 Other external cause status
CPT/HCPCS: 72100; 90471; 90714; 96372; 99284; J1170

== ENCOUNTER → 2018-03-08 | Outpatient (CLI) | payer MEDICARE | END | disposition home or self-care (01) | LOC: RAH 12:50 | PROVIDERS: ATTEND Internal Medicine | DX: S69.92XA Unspecified injury of left wrist, hand and finger(s), initial encounter (principal); X58.XXXA Exposure to other specified factors, initial encounter; Y93.89 Activity, other specified; Y92.89 Other specified places as the place of occurrence of the external cause; Y99.8 Other external cause status | CPT/HCPCS: 73130 ==

== ENCOUNTER 2018-10-09 10:42 | Emergency (ER) | payer MEDICARE ==
[2018-10-09 11:05] LABS: BASOPHILS % (AUTO) 0.7 % (0.0-5.0); EOSINOPHILS % (AUTO) 1.7 % (0.0-8.0); HEMATOCRIT 39.1 % (42-54); MEAN CORPUSCULAR HEMOGLOBIN 27.3 pg (27.0-33.0); MEAN CORPUSCULAR HGB CONC 32.4 g/dL (32.0-36.0); MEAN CORPUSCULAR VOLUME 84.2 fL (79-99); MONOCYTES % (AUTO) 13.9 % (3.0-13.0); NEUTROPHILS % (AUTO) 73.7 % (40.0-77.0); PLATELET COUNT (AUTO) 164 K/uL (130-400); RED BLOOD CELL COUNT(AUTO) 4.65 MIL/uL (4.50-6.20); RED CELL DISTRIBUTION WIDTH 14.9 % (11.0-15.5); WHITE BLOOD COUNT (AUTO) 8.2 K/uL (4.8-10.8)
[2018-10-09 11:15] LABS: CREATININE 1.2 mg/dL (0.5-1.5); POTASSIUM 4.2 mmol/L (3.5-5.1)
[2018-10-09 11:17] LABS: MAGNESIUM 1.9 mg/dL (1.80-2.40)
[2018-10-09] MEDS ORDERED: METHYLPREDNISOLONE SOD SUCC 40MG/ML 1ML ONE (11:18)
[2018-10-09] MEDS ORDERED: OXYMETAZOLINE HCL SPRAY 15 ML BOTTLE ONE (11:18)
[2018-10-09 11:19] LABS: ALBUMIN 3.3 g/dL (3.5-5.0); BILIRUBIN,TOTAL 1.3 mg/dL (0.2-1.0); TOTAL PROTEIN, SERUM 6.8 g/dL (6.0-8.3)
[2018-10-09] MEDS ORDERED: IPRATROPIUM/ALBUTEROL SULFATE 3 ML SOLUTION IH ONE ×2 (11:26→12:09)
[2018-10-09 11:45] LABS: INR 0.99 (0.85-1.15); PARTIAL THROMBOPLASTIN TIME 30.3 SEC (26.3-35.5); PROTHROMBIN TIME 10.4 SEC (9.6-11.6)
[2018-10-09] MEDS ORDERED: PREDNISONE 20 MG TABLET ONE (12:15)
== END 2018-10-09 12:36 | disposition home or self-care (01) ==
LOC: EDH 10:42
DX: J44.1 Chronic obstructive pulmonary disease with (acute) exacerbation (principal); J06.9 Acute upper respiratory infection, unspecified; I25.10 Atherosclerotic heart disease of native coronary artery without angina pectoris; E11.9 Type 2 diabetes mellitus without complications; E78.5 Hyperlipidemia, unspecified; I10 Essential (primary) hypertension; Z87.442 Personal history of urinary calculi; Z88.6 Allergy status to analgesic agent; Z88.5 Allergy status to narcotic agent; Z91.041 Radiographic dye allergy status; Z90.49 Acquired absence of other specified parts of digestive tract; Z87.891 Personal history of nicotine dependence
CPT/HCPCS: 36415; 71045; 80053; 83605; 83735; 84484; 85025; 85610; 85730; 87804 ×2; 93005; 94640; 96374; 99285; J2920

== ENCOUNTER → 2021-05-12 | Outpatient (CLI) | payer MEDICARE ==
[~2021-05-12] MED LIST changes: -ALFU10TA18 PO; +ALFU10TA9 PO; +LISI2.5T13 PO; -LISI2.5T2 PO; +MONT-39 PO; -MONT10TA24 PO
== END | disposition home or self-care (01) ==
LOC: RAH 14:41
PROVIDERS: ATTEND Urology
DX: N28.1 Cyst of kidney, acquired (principal); N20.0 Calculus of kidney; J90 Pleural effusion, not elsewhere classified
CPT/HCPCS: 74176

== ENCOUNTER → 2023-08-04 | Outpatient (CLI) | payer MEDICARE ==
[~2023-08-04] MED LIST changes: +ACET-2247 PO; +ACET-2743 PO; -AEC81 PO; -ALFU10TA9 PO; +CEFD300C3 PO; -CHOL100040 PO; -CHOL4PAC21 PO; +CHOL500051 PO; -ESOM40CA PO; -FLUO10TA3 PO; +FLUO10TA35 PO; -FURO20TA4 PO; -HYDR200T4 PO; +HYDR200T75 PO; -HYDR4 PO; -MONT-39 PO; -MULT-603 PO; +MULT200T12 PO; -NITR0.4T SL; -SUCR1TAB2 PO; +TAMS-1 PO; -TIOT18CA3 IH
== END | disposition home or self-care (01) ==
LOC: RAH 11:27
PROVIDERS: ATTEND Urology
DX: N20.2 Calculus of kidney with calculus of ureter (principal); M47.815 Spondylosis without myelopathy or radiculopathy, thoracolumbar region
CPT/HCPCS: 74018; 76100

== ENCOUNTER → 2023-08-16 | Outpatient (CLI) | payer MEDICARE | END | disposition home or self-care (01) | LOC: RAH 11:54 | PROVIDERS: ATTEND Urology | DX: N28.1 Cyst of kidney, acquired (principal); N20.0 Calculus of kidney; J84.10 Pulmonary fibrosis, unspecified; M48.56XA Collapsed vertebra, not elsewhere classified, lumbar region, initial encounter for fracture; M47.815 Spondylosis without myelopathy or radiculopathy, thoracolumbar region; N32.89 Other specified disorders of bladder | CPT/HCPCS: 74176 ==

== ENCOUNTER 2023-08-21 03:19 | Emergency (ER) | payer MEDICARE ==
[~2023-08-21] VITALS: Ht 172.7 cm; Wt 64.9 kg
[2023-08-21 03:36] LABS: BASOPHILS # (AUTO) 0.02 K/uL (0.00-0.20); BASOPHILS % (AUTO) 0.2 % (0.0-5.0); EOSINOPHILS # (AUTO) 0.09 K/uL (0.00-0.70); EOSINOPHILS % (AUTO) 0.7 % (0.0-8.0); HEMATOCRIT 39.1 % (42-54); IMMATURE GRANULOCYTE ABSOLUTE 0.06 K/uL (0-1); LYMPHOCYTES # (AUTO) 0.3 K/uL (1.0-4.8); LYMPHOCYTES % (AUTO) 2.6 % (21.0-51.0); MEAN CORPUSCULAR HEMOGLOBIN 28.4 pg (27.0-33.0); MEAN CORPUSCULAR HGB CONC 32.2 g/dL (32.0-36.0); MEAN CORPUSCULAR VOLUME 88.3 fL (79-99); MONOCYTES # (AUTO) 0.7 K/uL (0.1-1.0); MONOCYTES % (AUTO) 5.9 % (3.0-13.0); NEUTROPHILS # (AUTO) 11.2 K/uL (1.8-7.7); NEUTROPHILS % (AUTO) 90.1 % (40.0-77.0); PLATELET COUNT (AUTO) 215 K/uL (130-400); RED BLOOD CELL COUNT(AUTO) 4.43 MIL/uL (4.50-6.20); RED CELL DISTRIBUTION WIDTH 13.1 % (11.0-15.5); WHITE BLOOD COUNT (AUTO) 12.4 K/uL (4.8-10.8)
[2023-08-21 03:37] LABS: APPEARANCE,URINE CLOUDY (CLEAR); BILIRUBIN,URINE NEGATIVE (NEGATIVE); COLOR,URINE LIGHT-YELLOW (YELLOW); GLUCOSE, URINE (UA) NEGATIVE (NEGATIVE); KETONES,URINE NEGATIVE (NEGATIVE); LEUKOCYTE ESTERASE ,URINE 500 Leu/uL (NEGATIVE); NITRATE,URINE NEGATIVE (NEGATIVE); OCCULT BLOOD,URINE MODERATE (NEGATIVE); PROTEIN,URINE 100 mg/dL (NEGATIVE); UROBILINOGEN,URINE 0.2 mg/dL (0.2-1.0)
[2023-08-21 03:38] LABS: ADD UA MICROSCOPIC YES
[2023-08-21] MEDS: ONDANSETRON 4MG INJ IVP ONE (03:38)
[2023-08-21] MEDS: 0.9%NACL 1000ML 1,000 ML IV SCH (03:38)
[2023-08-21] MEDS: FAMOTIDINE 20MG VIAL IV ONE (03:38)
[2023-08-21] MEDS: KETOROLAC 30MG VIAL (30MG/ML) IVP ONE (03:39)
[2023-08-21 03:45] LABS: RAPID GROUP A STREP negative (NEGATIVE)
[2023-08-21 03:46] LABS: BACTERIA,URINE RARE /HPF (None Seen); MUCUS,URINE RARE LPF (None Seen); RBC,URINE TNTC /HPF (0-1); SQUAMOUS EPITHELIAL CELL,UR RARE /HPF (0-2); WBC CLUMP FEW /HPF (0-1); WBC,URINE TNTC /HPF (0-1)
[2023-08-21] MEDS: CEFTRIAXONE 2GM VIAL IVPB ONE (03:46)
[2023-08-21 03:48] LABS: CREATININE 1.2 mg/dL (0.5-1.5); POTASSIUM 3.9 mmol/L (3.5-5.1)
[2023-08-21 03:51] LABS: SARS-CoV-2, RNA, NAAT NEGATIVE SARS CoV-2 (NEGATIVE)
[2023-08-21 03:53] LABS: ALBUMIN 3.1 g/dL (3.5-5.0); TOTAL PROTEIN, SERUM 7.3 g/dL (6.0-8.3)
[2023-08-21 03:56] LABS: INFLUENZA TYPE A Negative For Type A (NEGATIVE); INFLUENZA TYPE B Negative For Type B (NEGATIVE)
[2023-08-21 04:00] LABS: WBC MORPHOLOGY CONSISTENT W/DIFF
[2023-08-21 04:39] VITALS: BP 100/50; PULSE 69; RESP 18; O2SAT 96
[2023-08-21] MEDS ORDERED: OMEP-420 PO (04:47)
[2023-08-21] MEDS ORDERED: FAMO-136 PO (04:47)
[2023-08-21] MEDS ORDERED: CEPH500C2 PO (04:47)
[2023-08-21] MEDS ORDERED: ONDA4TAB10 SL (04:47)
[2023-08-21] MEDS: PROCHLORPERAZINE 10MG/2ML INJ IV ONE (04:52)
[2023-08-21] MEDS: DICYCLOMINE HCL 10 MG/5 ML ML PO SCH (04:52)
[2023-08-21] MEDS: MAG/ALUM/SIMETH 30 ML UDCUP PO ONE (04:52)
[2023-08-22] MEDS ORDERED: CHOL500045 PO (10:01)
[2023-08-22] MEDS ORDERED: ALFU10TA9 PO (10:01)
[2023-08-28] MEDS ORDERED: TAMS-1 PO (08:04)
[2023-08-28] MEDS ORDERED: LISI10TA24 PO (08:04)
== END 2023-08-21 05:08 | disposition home or self-care (01) ==
LOC: EDH 03:19
DX: N39.0 Urinary tract infection, site not specified (principal); K29.70 Gastritis, unspecified, without bleeding; Z79.899 Other long term (current) drug therapy; Z88.5 Allergy status to narcotic agent; Z88.8 Allergy status to other drugs, medicaments and biological substances; Z91.041 Radiographic dye allergy status; Z93.6 Other artificial openings of urinary tract status; Z95.1 Presence of aortocoronary bypass graft; Z95.5 Presence of coronary angioplasty implant and graft; Z20.822 Contact with and (suspected) exposure to COVID-19
CPT/HCPCS: 99284; 74176; 96374; 96375; 87635; 84484; 80053; 85025; 87077; 87088; 87186; 87880; 87804 ×2; 83605; 81001; 36415; 93005; J3490; J7030; J0696; J0780; J2405; J1885

== ENCOUNTER 2023-09-08 09:26 | Day surgery (SDC) | payer MEDICARE ==
[2023-09-06 13:14] LABS: BASOPHILS # (AUTO) 0.04 K/uL (0.00-0.20); BASOPHILS % (AUTO) 0.7 % (0.0-5.0); EOSINOPHILS # (AUTO) 0.12 K/uL (0.00-0.70); EOSINOPHILS % (AUTO) 2.2 % (0.0-8.0); HEMATOCRIT 37.8 % (42-54); IMMATURE GRANULOCYTE ABSOLUTE 0.03 K/uL (0-1); LYMPHOCYTES # (AUTO) 0.9 K/uL (1.0-4.8); LYMPHOCYTES % (AUTO) 15.9 % (21.0-51.0); MEAN CORPUSCULAR HEMOGLOBIN 27.5 pg (27.0-33.0); MEAN CORPUSCULAR HGB CONC 31.7 g/dL (32.0-36.0); MEAN CORPUSCULAR VOLUME 86.7 fL (79-99); MONOCYTES # (AUTO) 0.6 K/uL (0.1-1.0); MONOCYTES % (AUTO) 11.5 % (3.0-13.0); NEUTROPHILS # (AUTO) 3.8 K/uL (1.8-7.7); NEUTROPHILS % (AUTO) 69.2 % (40.0-77.0); PLATELET COUNT (AUTO) 227 K/uL (130-400); RED BLOOD CELL COUNT(AUTO) 4.36 MIL/uL (4.50-6.20); RED CELL DISTRIBUTION WIDTH 13.4 % (11.0-15.5); WHITE BLOOD COUNT (AUTO) 5.5 K/uL (4.8-10.8)
[2023-09-06 13:22] LABS: POTASSIUM 4.3 mmol/L (3.5-5.1)
[2023-09-06 13:24] LABS: PROTHROMBIN TIME 11.8 SEC (9.6-11.6)
[2023-09-06 13:25] LABS: PARTIAL THROMBOPLASTIN TIME 32.7 SEC (26.3-35.5)
[2023-09-06 13:38] VITALS: BP 156/69; PULSE 64; RESP 15
[~2023-09-08] VITALS: Ht 175.3 cm; Wt 64.2 kg
[~2023-09-08 09:26] MED LIST changes: -ACET-2247 PO; -ALBU2.5V2 IH; +ALFU10TA9 PO; -CEFD300C3 PO; +CHOL500045 PO; -CHOL500051 PO; +FAMO20TA8 PO; -LISI2.5T13 PO; -METO-408 PO; -PANT40TA PO; +PANT40TA54 PO; -TAMS-1 PO
[2023-09-08 10:15] VITALS: BP 145/66; PULSE 64; RESP 16
[2023-09-08] MEDS ORDERED: 0.9%NACL 1000ML 1,000 ML IV ONE (11:09)
[2023-09-08] MEDS ORDERED: LIDOCAINE HCL 1% MDV 50ML VIAL ONE (13:31)
[2023-09-08] MEDS ORDERED: IODIXANOL 320 MG/ML 100 ML VIAL ONE (13:32)
[2023-09-08] MEDS ORDERED: DiphenhydrAMINE HCL 50 MG/ML VIAL ONE (13:33)
[2023-09-08] MEDS ORDERED: ONDANSETRON 4MG INJ ONE (14:01)
[2023-09-08] MEDS ORDERED: FENTANYL CITRATE PF 50 MCG/1 ML 2ML VIAL ONE (14:01)
[2023-09-08] MEDS ORDERED: MIDAZOLAM HCL 1 MG/ML 2ML VIAL ONE (14:01)
[2023-09-08 14:30] VITALS: BP 167/79; PULSE 67; RESP 16
== END 2023-09-08 15:10 | disposition home or self-care (01) ==
LOC: DAH 09:26
PROVIDERS: ATTEND Urology
DX: N13.2 Hydronephrosis with renal and ureteral calculous obstruction (principal); N28.1 Cyst of kidney, acquired; R97.20 Elevated prostate specific antigen [PSA]; E83.9 Disorder of mineral metabolism, unspecified; J43.9 Emphysema, unspecified; Z88.6 Allergy status to analgesic agent; Z91.041 Radiographic dye allergy status; Z88.5 Allergy status to narcotic agent; Z88.8 Allergy status to other drugs, medicaments and biological substances; Z82.3 Family history of stroke; Z83.3 Family history of diabetes mellitus; Z80.9 Family history of malignant neoplasm, unspecified; Z83.79 Family history of other diseases of the digestive system; Z79.899 Other long term (current) drug therapy
CPT/HCPCS: 80048; 85025; 85610; 85730; 36415; 50431; J1200; J7030; J1644; Q9967; A4215; A4222; A4221; A4663; A4216; A4606; A4223 ×3; J2250; J2405; J3010; J3490

== ENCOUNTER 2023-09-27 05:29 | Observation (INO) | payer MEDICARE ==
[2023-09-26 12:47] LABS: HEMATOCRIT 41.1 % (42-54); MEAN CORPUSCULAR HEMOGLOBIN 27.5 pg (27.0-33.0); MEAN CORPUSCULAR HGB CONC 31.1 g/dL (32.0-36.0); MEAN CORPUSCULAR VOLUME 88.4 fL (79-99); RED BLOOD CELL COUNT(AUTO) 4.65 MIL/uL (4.50-6.20); RED CELL DISTRIBUTION WIDTH 14.1 % (11.0-15.5); WHITE BLOOD COUNT (AUTO) 6.9 K/uL (4.8-10.8)
[2023-09-26 12:59] LABS: INR <= 0.93 (0.85-1.15); PROTHROMBIN TIME 10.9 SEC (9.6-11.6)
[2023-09-26 13:01] LABS: PARTIAL THROMBOPLASTIN TIME 32.8 SEC (26.3-35.5)
[2023-09-26 13:03] LABS: ALBUMIN 3.4 g/dL (3.5-5.0); BILIRUBIN,TOTAL 0.8 mg/dL (0.2-1.0); CREATININE 1.1 mg/dL (0.5-1.3); POTASSIUM 4.3 mmol/L (3.5-5.1); TOTAL PROTEIN, SERUM 7.9 g/dL (6.0-8.3)
[2023-09-26 13:05] LABS: APPEARANCE,URINE CLEAR (CLEAR); BILIRUBIN,URINE NEGATIVE (NEGATIVE); COLOR,URINE LIGHT-YELLOW (YELLOW); GLUCOSE, URINE (UA) NEGATIVE (NEGATIVE); KETONES,URINE NEGATIVE (NEGATIVE); LEUKOCYTE ESTERASE ,URINE 500 Leu/uL (NEGATIVE); NITRATE,URINE NEGATIVE (NEGATIVE); PH,URINE 5.5 (5.0-8.0); PROTEIN,URINE NEGATIVE (NEGATIVE); UROBILINOGEN,URINE 0.2 mg/dL (0.2-1.0)
[2023-09-26 13:06] LABS: ADD UA MICROSCOPIC YES
[2023-09-26 13:14] LABS: BACTERIA,URINE RARE /HPF (None Seen); MUCUS,URINE RARE LPF (None Seen); SQUAMOUS EPITHELIAL CELL,UR RARE /HPF (0-2); WBC,URINE 51-100 /HPF (0-1)
[2023-09-26 13:15] VITALS: BP 144/65; PULSE 52; RESP 16
[~2023-09-27] VITALS: Ht 172.7 cm; Wt 63.7 kg
[2023-09-27] VITALS (27 sets, daily range): BP systolic 128–167; BP diastolic 55–77; PULSE 51–62; RESP 15–20; O2SAT 99
[~2023-09-27 05:29] MED LIST changes: +ALBUTEROL SULF IH
[2023-09-27] MEDS: LACTATED RINGERS 1000ML 1,000 ML IV ONE (05:51)
[2023-09-27] MEDS ORDERED: FENTANYL CITRATE PF 50 MCG/1 ML 2ML VIAL ONE (06:28)
[2023-09-27] MEDS ORDERED: MIDAZOLAM HCL 1 MG/ML 2ML VIAL ONE (06:28)
[2023-09-27] MEDS ORDERED: PROPOFOL 10 MG/ML 20ML VIAL IV ONE (06:28)
[2023-09-27] MEDS ORDERED: ONDANSETRON 4MG INJ ONE (06:29)
[2023-09-27] MEDS ORDERED: DEXAMETHASONE SOD PHOSPHATE 10MG/ML 1ML VIAL ONE (06:29)
[2023-09-27] MEDS ORDERED: ROCURONIUM BROMIDE 10MG/1ML 5ML VL ONE (06:35)
[2023-09-27] MEDS: ZOSYN 3.375GM+NS 50ML 50 ML ONE (07:00)
[2023-09-27] MEDS: IOHEXOL-350 50ML VIAL IV ONE (07:14)
[2023-09-27] MEDS ORDERED: NEOSTIGMINE METHYLSULFATE 1MG/ML IV ONE (08:24)
[2023-09-27] MEDS ORDERED: GLYCOPYRROLATE 0.2 MG/ML 5 ML VIAL ONE (08:24)
[2023-09-27] MEDS: MEPERIDINE-PF 75 MG/ML SYG IM PRN (10:56)
[2023-09-27] MEDS: LACTATED RINGERS 1000ML 1,000 ML IV SCH (10:58)
[2023-09-27] MEDS ORDERED: ACETAMINOPHEN 325 MG TAB PO PRN (11:00)
[2023-09-27] MEDS ORDERED: ONDANSETRON 4MG INJ IVP PRN (11:00)
[2023-09-27] MEDS: PHARMACY COMMUNICATION MISC SCH (11:30)
[2023-09-27] MEDS: ZOSYN 3.375GM +NS 50ML IV SCH (11:42)
[2023-09-27] MEDS ORDERED: ALBUTEROL MDI IH PRN (13:00)
[2023-09-27] MEDS ORDERED: ALBUHFA IH (15:45)
[2023-09-27] MEDS ORDERED: (Albuterol Sulfate (Ventolin Hfa/Proventil Hfa/Proair Hfa) IH PRN (16:00)
[2023-09-27] MEDS: FLUOXETINE HCL 10 MG CAPSULE PO SCH (20:15)
[2023-09-27] MEDS: TRAZODONE HCL 50 MG TAB PO SCH (20:15)
[2023-09-27] MEDS: ACETAMINOPHEN 500 MG TABLET PO SCH (20:16)
[2023-09-27] MEDS: (Cholecalciferol (Vitamin D3) (Vitamin D3) 125 MCG) PO SCH (20:20)
[2023-09-28] MEDS: DiphenhydrAMINE HCL 50 MG/ML VIAL IV PRN (01:29)
[2023-09-28] MEDS ORDERED: HYDROMORPHONE 0.5 MG SYG (0.5MG/0.5ML) IVP PRN (01:30)
[2023-09-28 04:13] VITALS: BP 139/61; PULSE 60; RESP 18
[2023-09-28 06:15] LABS: BASOPHILS # (AUTO) 0.02 K/uL (0.00-0.20); BASOPHILS % (AUTO) 0.2 % (0.0-5.0); EOSINOPHILS # (AUTO) 0.02 K/uL (0.00-0.70); EOSINOPHILS % (AUTO) 0.2 % (0.0-8.0); HEMATOCRIT 36.7 % (42-54); IMMATURE GRANULOCYTE ABSOLUTE 0.06 K/uL (0-1); LYMPHOCYTES # (AUTO) 0.8 K/uL (1.0-4.8); LYMPHOCYTES % (AUTO) 7.6 % (21.0-51.0); MEAN CORPUSCULAR HEMOGLOBIN 27.5 pg (27.0-33.0); MEAN CORPUSCULAR HGB CONC 30.8 g/dL (32.0-36.0); MEAN CORPUSCULAR VOLUME 89.3 fL (79-99); MONOCYTES # (AUTO) 1.1 K/uL (0.1-1.0); MONOCYTES % (AUTO) 10.4 % (3.0-13.0); NEUTROPHILS # (AUTO) 8.9 K/uL (1.8-7.7); NEUTROPHILS % (AUTO) 81.1 % (40.0-77.0); PLATELET COUNT (AUTO) 211 K/uL (130-400); RED BLOOD CELL COUNT(AUTO) 4.11 MIL/uL (4.50-6.20); RED CELL DISTRIBUTION WIDTH 13.9 % (11.0-15.5)
[2023-09-28 06:40] LABS: CREATININE 1.1 mg/dL (0.5-1.3)
[2023-09-28 08:00] VITALS: BP 105/69; PULSE 50; RESP 18
[2023-09-28] MEDS: PANTOPRAZOLE 40 MG TAB DR PO SCH (08:49)
[2023-09-28] MEDS: ATORVASTATIN 40 MG TABLET PO SCH (08:49)
[2023-09-28] MEDS: HYDROXYCHLOROQUINE SULFATE 200 MG TAB PO SCH (08:49)
[2023-09-28] MEDS: FAMOTIDINE 20MG TAB PO SCH (08:49)
[2023-09-28] MEDS: MULTIVIT MINERALS PO SCH (08:50)
[2023-09-28] MEDS: FOLIC ACID PO SCH (08:50)
[2023-09-28] MEDS ORDERED: LEVO-70 PO (09:56)
[2023-09-28 12:00] VITALS: BP 151/69; PULSE 63; RESP 18
== END 2023-09-28 16:20 | disposition home or self-care (01) ==
LOC: DAH 05:29 → DAHIP 05:30 → 3CH 09:40
PROVIDERS: ADMIT Hospitalist; ATTEND Hospitalist
DX: N13.2 Hydronephrosis with renal and ureteral calculous obstruction (principal); I10 Essential (primary) hypertension; I25.10 Atherosclerotic heart disease of native coronary artery without angina pectoris; E78.2 Mixed hyperlipidemia; J43.9 Emphysema, unspecified; E78.5 Hyperlipidemia, unspecified; Z87.442 Personal history of urinary calculi; Z95.1 Presence of aortocoronary bypass graft; Z93.6 Other artificial openings of urinary tract status; Z79.899 Other long term (current) drug therapy
CPT/HCPCS: 80053; 85027; 85610; 85730; 87088; 81001; 36415 ×3; 74018; 71046; 93005; 96372 ×2; 96365; 52352; 52332; 96366 ×2; 87077; 87186; 82360; 74420; 80048; 85025; A6260; A4600; A4663; A4344; C2617; C1758 ×2; A4354; J7120; J3010; J1100; J3490 ×2; J2250; J2704; J2405; J2710; J2543 ×5; J2175 ×3; Q9967; A4358; C1769; A4649; C1726; A4215; A4223; A4222; A4221; G0378 ×5; J1200

== ENCOUNTER 2023-10-05 10:12 | Inpatient (IN) | payer MEDICARE ==
[~2023-10-05] VITALS: Ht 437.4 cm; Wt 60.8 kg
[~2023-10-05 10:12] MED LIST changes: +ALBUHFA IH; -ALBUTEROL SULF IH; +LEVO-70 PO
[2023-10-05] MEDS ORDERED: ACETAMINOPHEN 500 MG TABLET PO PRN (12:00)
[2023-10-05] MEDS ORDERED: ONDANSETRON 4MG INJ IVP PRN (12:00)
[2023-10-05] MEDS ORDERED: 0.9%NACL 50ML IV SCH (12:00)
[2023-10-05 12:32] LABS: BASOPHILS # (AUTO) 0.05 K/uL (0.00-0.20); BASOPHILS % (AUTO) 0.4 % (0.0-5.0); EOSINOPHILS # (AUTO) 0.05 K/uL (0.00-0.70); EOSINOPHILS % (AUTO) 0.4 % (0.0-8.0); HEMATOCRIT 40.9 % (42-54); IMMATURE GRANULOCYTE ABSOLUTE 0.07 K/uL (0-1); LYMPHOCYTES # (AUTO) 0.8 K/uL (1.0-4.8); LYMPHOCYTES % (AUTO) 6.8 % (21.0-51.0); MEAN CORPUSCULAR HEMOGLOBIN 26.9 pg (27.0-33.0); MEAN CORPUSCULAR HGB CONC 31.3 g/dL (32.0-36.0); MEAN CORPUSCULAR VOLUME 85.9 fL (79-99); MONOCYTES # (AUTO) 1.8 K/uL (0.1-1.0); MONOCYTES % (AUTO) 15.9 % (3.0-13.0); NEUTROPHILS # (AUTO) 8.7 K/uL (1.8-7.7); NEUTROPHILS % (AUTO) 75.9 % (40.0-77.0); PLATELET COUNT (AUTO) 209 K/uL (130-400); RED BLOOD CELL COUNT(AUTO) 4.76 MIL/uL (4.50-6.20); WHITE BLOOD COUNT (AUTO) 11.4 K/uL (4.8-10.8)
[2023-10-05 12:47] LABS: CREATININE 1.2 mg/dL (0.5-1.3); POTASSIUM 3.8 mmol/L (3.5-5.1)
[2023-10-05 12:48] LABS: INR 0.95 (0.85-1.15); PROTHROMBIN TIME 11.2 SEC (9.6-11.6)
[2023-10-05 12:52] LABS: ALBUMIN 3.3 g/dL (3.5-5.0); BILIRUBIN,TOTAL 1.2 mg/dL (0.2-1.0); TOTAL PROTEIN, SERUM 8.3 g/dL (6.0-8.3)
[2023-10-05 13:00] LABS: SARS-CoV-2, RNA, NAAT NEGATIVE SARS CoV-2 (NEGATIVE)
[2023-10-05 13:01] LABS: ADD UA MICROSCOPIC YES; APPEARANCE,URINE CLOUDY (CLEAR); BILIRUBIN,URINE NEGATIVE (NEGATIVE); COLOR,URINE YELLOW (YELLOW); GLUCOSE, URINE (UA) NEGATIVE (NEGATIVE); KETONES,URINE 10 mg/dL (NEGATIVE); LEUKOCYTE ESTERASE ,URINE 500 Leu/uL (NEGATIVE); NITRATE,URINE NEGATIVE (NEGATIVE); OCCULT BLOOD,URINE MODERATE (NEGATIVE); PH,URINE 5.5 (5.0-8.0); PROTEIN,URINE 50 mg/dL (NEGATIVE); UROBILINOGEN,URINE 0.2 mg/dL (0.2-1.0)
[2023-10-05 13:03] LABS: INFLUENZA TYPE A Negative For Type A (NEGATIVE); INFLUENZA TYPE B Negative For Type B (NEGATIVE)
[2023-10-05 13:05] LABS: BACTERIA,URINE RARE /HPF (None Seen); MUCUS,URINE RARE LPF (None Seen); RBC,URINE 51-100 /HPF (0-1); SQUAMOUS EPITHELIAL CELL,UR RARE /HPF (0-2); UNCLASSIFIED CRYSTAL 5 /HPF (None Seen); WBC,URINE TNTC /HPF (0-1)
[2023-10-05 13:15] VITALS: PULSE 78; RESP 18
[2023-10-05 14:04] LABS: ERYTHROCYTE SEDIMENTATION RATE 60 MM/HR (0-20)
[2023-10-05 14:18] VITALS: PULSE 78; RESP 18; O2SAT 97
[2023-10-05] MEDS: ACETAMINOPHEN 325 MG TAB PO ONE (15:59)
[2023-10-05] MEDS: IPRATROPIUM 0.5 MG/2.5 ML INH IH PRN (16:01)
[2023-10-05 20:00] VITALS: BP 126/63; PULSE 69; RESP 17
[2023-10-05] MEDS: FLUOXETINE HCL 10 MG CAPSULE PO SCH (20:51)
[2023-10-05] MEDS: TRAZODONE HCL 50 MG TAB PO SCH (20:51)
[2023-10-05] MEDS: 0.9%NACL 1000ML 1,000 ML IV SCH (20:51)
[2023-10-05] MEDS: ZOSYN 3.375GM +NS 50ML IVPB SCH (20:51)
[2023-10-05] MEDS: ACETAMINOPHEN 500 MG TABLET PO SCH (20:52)
[2023-10-05] MEDS ORDERED: FAMOTIDINE 20MG TAB PO SCH (21:00)
[2023-10-05] MEDS: SODIUM CHLORIDE 3% FOR INHALATION 4 ML/AMP VIAL.NEB IH ONE (21:18)
[2023-10-06] VITALS (9 sets, daily range): BP systolic 129–153; BP diastolic 55–75; PULSE 65–79; RESP 17–19; O2SAT 96–97
[2023-10-06 05:53] LABS: BASOPHILS # (AUTO) 0.04 K/uL (0.00-0.20); BASOPHILS % (AUTO) 0.5 % (0.0-5.0); EOSINOPHILS # (AUTO) 0.27 K/uL (0.00-0.70); EOSINOPHILS % (AUTO) 3.6 % (0.0-8.0); HEMATOCRIT 36.1 % (42-54); IMMATURE GRANULOCYTE ABSOLUTE 0.04 K/uL (0-1); LYMPHOCYTES # (AUTO) 0.7 K/uL (1.0-4.8); LYMPHOCYTES % (AUTO) 9.8 % (21.0-51.0); MEAN CORPUSCULAR HEMOGLOBIN 27.1 pg (27.0-33.0); MEAN CORPUSCULAR HGB CONC 30.7 g/dL (32.0-36.0); MONOCYTES # (AUTO) 1.5 K/uL (0.1-1.0); NEUTROPHILS # (AUTO) 4.9 K/uL (1.8-7.7); NEUTROPHILS % (AUTO) 65.6 % (40.0-77.0); PLATELET COUNT (AUTO) 208 K/uL (130-400); WHITE BLOOD COUNT (AUTO) 7.5 K/uL (4.8-10.8)
[2023-10-06 06:07] LABS: ALBUMIN 2.4 g/dL (3.5-5.0); BILIRUBIN,TOTAL 0.7 mg/dL (0.2-1.0); CREATININE 1.2 mg/dL (0.5-1.3); MAGNESIUM 1.9 mg/dL (1.80-2.40); POTASSIUM 4.4 mmol/L (3.5-5.1); TOTAL PROTEIN, SERUM 6.6 g/dL (6.0-8.3)
[2023-10-06 06:49] LABS: B-TYPE NATRIURETIC PEPTIDE 122 pg/mL (0-100)
[2023-10-06] MEDS: HYDROXYCHLOROQUINE SULFATE 200 MG TAB PO SCH (10:10)
[2023-10-06] MEDS: ATORVASTATIN 40 MG TABLET PO SCH (10:10)
[2023-10-06] MEDS: PANTOPRAZOLE 40 MG TAB DR PO SCH (10:11)
[2023-10-07] VITALS: BP 143/69; PULSE 62; RESP 19
[2023-10-07 04:00] VITALS: BP 143/84; PULSE 56; RESP 19
[2023-10-07 04:47] LABS: BASOPHILS # (AUTO) 0.04 K/uL (0.00-0.20); BASOPHILS % (AUTO) 0.6 % (0.0-5.0); EOSINOPHILS # (AUTO) 0.34 K/uL (0.00-0.70); EOSINOPHILS % (AUTO) 5.5 % (0.0-8.0); IMMATURE GRANULOCYTE ABSOLUTE 0.04 K/uL (0-1); LYMPHOCYTES # (AUTO) 0.9 K/uL (1.0-4.8); LYMPHOCYTES % (AUTO) 13.7 % (21.0-51.0); MEAN CORPUSCULAR HEMOGLOBIN 27.1 pg (27.0-33.0); MEAN CORPUSCULAR HGB CONC 31.4 g/dL (32.0-36.0); MEAN CORPUSCULAR VOLUME 86.2 fL (79-99); NEUTROPHILS # (AUTO) 3.9 K/uL (1.8-7.7); NEUTROPHILS % (AUTO) 63.6 % (40.0-77.0); PLATELET COUNT (AUTO) 248 K/uL (130-400); RED BLOOD CELL COUNT(AUTO) 4.06 MIL/uL (4.50-6.20); WHITE BLOOD COUNT (AUTO) 6.2 K/uL (4.8-10.8)
[2023-10-07 05:01] LABS: ALBUMIN 2.4 g/dL (3.5-5.0); BILIRUBIN,TOTAL 0.7 mg/dL (0.2-1.0); MAGNESIUM 1.9 mg/dL (1.80-2.40); POTASSIUM 4.1 mmol/L (3.5-5.1); TOTAL PROTEIN, SERUM 6.9 g/dL (6.0-8.3)
[2023-10-07 08:00] VITALS: BP 128/70; PULSE 60; RESP 16; O2SAT 96
[2023-10-07 12:00] VITALS: BP 159/69; PULSE 70; RESP 16
== END 2023-10-07 17:45 | disposition home or self-care (01) | DRG 872 ==
LOC: EDH 10:12 → EDHIP 10:13 → 4DH 17:31
PROVIDERS: ADMIT Hospitalist; ATTEND Hospitalist
DX: A41.50 Gram-negative sepsis, unspecified (principal); N13.6 Pyonephrosis; I10 Essential (primary) hypertension; I25.10 Atherosclerotic heart disease of native coronary artery without angina pectoris; Z20.822 Contact with and (suspected) exposure to COVID-19; J44.9 Chronic obstructive pulmonary disease, unspecified; N40.0 Benign prostatic hyperplasia without lower urinary tract symptoms; E11.9 Type 2 diabetes mellitus without complications; Z96.651 Presence of right artificial knee joint; N28.1 Cyst of kidney, acquired; E78.5 Hyperlipidemia, unspecified; E86.0 Dehydration; Z87.891 Personal history of nicotine dependence; Z95.1 Presence of aortocoronary bypass graft; Z87.442 Personal history of urinary calculi; Z90.49 Acquired absence of other specified parts of digestive tract; Z79.899 Other long term (current) drug therapy
CPT/HCPCS: 36415; 71045; 74176; 76770; 80053; 81001; 82948; 83605; 83735; 83880; 85025; 85610; 85651; 85730; 86140; 87040; 87088; 87635; 87804; 93971; 94640; C1894; G0378; J2543; C1750

== ENCOUNTER → 2023-12-27 | Outpatient (CLI) | payer MEDICARE ==
[~2023-12-27] MED LIST changes: +ALFU10TA46 PO; -ALFU10TA9 PO; +DOXY100C5 PO; -FAMO20TA8 PO; -LEVO-70 PO; +LISI2.5T13 PO; +METO-408 PO; +NITR0.4T50 SL; +PRED20TA3 PO
[2023-12-27 14:58] LABS: MAGNESIUM 1.7 mg/dL (1.80-2.40); PHOSPHORUS 4.3 mg/dL (2.5-4.9); URIC ACID 4.7 mg/dL (2.6-7.2)
== END | disposition home or self-care (01) ==
LOC: RAH 13:56
PROVIDERS: ATTEND Urology
DX: N20.0 Calculus of kidney (principal); N28.1 Cyst of kidney, acquired; N32.89 Other specified disorders of bladder; M47.815 Spondylosis without myelopathy or radiculopathy, thoracolumbar region; I70.90 Unspecified atherosclerosis; Z96.0 Presence of urogenital implants; Z79.899 Other long term (current) drug therapy
CPT/HCPCS: 36415; 74176; 82131; 82306; 82310; 83735; 83970; 84100; 84550

== ENCOUNTER 2024-11-05 08:35 | Observation (INO) | payer MEDICARE, OTHER ==
[~2024-11-05] VITALS: Ht 172.7 cm; Wt 70.4 kg
--- NOTE | 2024-11-05 08:49 | EKG ---
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
[2024-11-05] MEDS: 0.9%NACL 1000ML 1,000 ML IV ONE (08:53)
[2024-11-05 08:58] LABS: HEMATOCRIT 40.6 % (42-54); MEAN CORPUSCULAR HEMOGLOBIN 26.3 pg (27.0-33.0); MEAN CORPUSCULAR VOLUME 87.5 fL (79-99); PLATELET COUNT (AUTO) 177 K/uL (130-400); RED BLOOD CELL COUNT(AUTO) 4.64 MIL/uL (4.50-6.20); WHITE BLOOD COUNT (AUTO) 10.6 K/uL (4.8-10.8)
[2024-11-05 09:06] LABS: CREATININE 1.2 mg/dL (0.5-1.3); POTASSIUM 3.7 mmol/L (3.5-5.1)
[2024-11-05 09:09] LABS: INR 0.97 (0.85-1.15); PROTHROMBIN TIME 10.3 SEC (9.6-11.6)
[2024-11-05 09:10] LABS: PARTIAL THROMBOPLASTIN TIME 23.8 SEC (26.3-35.5)
[2024-11-05 09:12] LABS: MAGNESIUM 1.8 mg/dL (1.80-2.40)
[2024-11-05 09:25] LABS: B-TYPE NATRIURETIC PEPTIDE 139 pg/mL (0-100)
--- NOTE | 2024-11-05 09:26 | HMCIMG ---
Exam Type: CT HEAD/BRAIN W/O CONTRAST Clinical Information: SYNCOPAL EPISODE Comparison: None CT Dose Index (CTDI): 57.33 mGy Dose Length Product (DLP): 956.79 total mGy-cm Findings: The examination shows atrophy. There is low attenuation throughout the periventricular white matter locations, consistent with chronic small vessel ischemic changes. No acute intra- or extra-axial fluid collections are seen. There is no evidence of acute or chronic hemorrhage. There is no mass effect or shift of midline structures. There are no areas to suggest acute infarct. The skull windows show no significant abnormalities. IMPRESSION: 1. ATROPHY AND CHRONIC SMALL VESSEL ISCHEMIC CHANGES. This study was performed using dose reduction techniques to include automated exposure control and/or adjustment of the mA and/or kV according to patient size.
--- NOTE | 2024-11-05 09:40 | HMCIMG ---
Exam Type: CHEST 1VW Clinical Information: SYNCOPAL EPISODE Comparison: None Findings: There is cardiomegaly and there is status post median sternotomy. The lungs are clear of infiltrates. Impression: Clear lungs.
--- NOTE | 2024-11-05 09:55 | ERN ---
General Chief Complaint: Syncope Stated Complaint: SYNCOPE Time Seen by MD: 08:52 Source: patient History of Present Illness Initial Comments PATIENT IS A 74-YEAR-OLD MALE COMING IN AFTER HE HAD A SYNCOPAL EPISODE. PER PATIENT HE WAS WALKING DOWN THE STEPS AND COMPLETELY PASSED OUT. HE DOES HAS A HISTORY OF STENT PLACEMENT A YEAR AGO. ALONG WITH THE SYNCOPE PATIENT DID HAVE MILD CHEST PAIN BEFORE THE SYNCOPAL EPISODE. Allergies: Coded Allergies: iodine (Unverified Allergy, Intermediate, 10/15/15) morphine (Unverified Allergy, Intermediate, 10/15/15) meperidine (Unverified Allergy, Mild, 09/28/23) lidocaine (Unverified Allergy, Unknown, 07/17/23) tramadol (Unverified Allergy, Unknown, BLISTERS, REDNESS, 03/01/16) codeine (Unverified Adverse Reaction, Mild, CONSTIPATION, 10/29/17) PATIENT TOLD NURSE, NOT A TRUE ALLERGY; IT CAUSES CONSTIPATION. 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 11/18/23 Prednisone (Prednisone) 20 Mg Tablet, 40 MG PO DAILY for 5 Days, #5 TAB Prov:HUSAM STYLES GENERAL HANDLING SUPERVISOR 11/18/23 Reported Medications Nitroglycerin (Nitroglycerin) 0.4 Mg Tab.subl, 0.4 MG SL AD PRN for CHEST PAIN, TAB.SL 11/10/23 Lisinopril (Lisinopril) 2.5 Mg Tablet, 2.5 MG PO HS, TAB 11/10/23 Metoprolol Succinate (Metoprolol Succinate) 25 Mg Tab.er.24h, 25 MG PO DAILY, TAB 11/10/23 Albuterol Sulfate (Ventolin Hfa/Proventil Hfa/Proair Hfa) 90 Mcg Puff, 90 MCG IH BID PRN for BRONCHOSPASMS, INHALER 2 PUFFS IH BID 09/27/23 Pantoprazole Sodium (Pantoprazole Sodium) 40 Mg Tablet.dr, 40 MG PO DAILY, TAB 09/06/23 Alfuzosin HCl (Alfuzosin HCl) 10 Mg Tab.er.24h, 10 MG PO HS, TAB 08/22/23 Cholecalciferol (Vitamin D3) (Vitamin D3) 125 Mcg (5000 Unit) Tablet, 125 MCG PO HS, TAB 08/22/23 Acetaminophen (Tylenol Extra Strength) 500 Mg Tablet, 1000 MG PO HS, TAB 07/14/23 Multivit-Minerals/Folic Acid (Multivitamin Gummies) 200 Mcg Tab.chew, 200 MCG PO DAILY, TAB.CHEW 07/14/23 Trazodone HCl (Trazodone HCl) 50 Mg Tablet, 50 MG PO HS, TAB 10/28/17 Hydroxychloroquine Sulfate (Hydroxychloroquine Sulfate) 200 Mg Tablet, 200 MG PO AM, TAB 06/11/16 Fluoxetine HCl (Fluoxetine HCl) 10 Mg Tablet, 10 MG PO HS, TAB 11/08/15 Atorvastatin Calcium (Atorvastatin Calcium) 40 Mg Tablet, 40 MG PO DAILY, TAB 11/08/15 Past Medical History Past Medical History: COPD, High Cholesterol, Heart Disease, Kidney Stone, Pneumonia Medical History Other: HX OF PNEUMONIA Past Surgical History: Cholecystectomy, CABG, Other Surgical History Other: R KNEE, L FOOT, AND BACK SX, KIDNEY STONE Social History Social History: Negative, Lives with family ROS Dictation CONSTITUTIONAL: NO CHILLS, NO FEVER, NO WEAKNESS, NO DIAPHORESIS, NO MALAISE. HEAD/FACE: NO SIGNS OF TRAUMA. EENT: NO EYE PAIN, NO BLURRED VISION, NO TEARING, NO DOUBLE VISION, NO EAR PAIN, NO EAR DISCHARGE, NO NOSE PAIN, NO NASAL CONGESTION, NO THROAT PAIN, NO THROAT SWELLING, NO MOUTH PAIN. RESPIRATORY: NO COUGH, NO ORTHOPNEA, NO SOB, NO STRIDOR, NO WHEEZING. CARDIOVASCULAR: NO CHEST PAIN, NO EDEMA, NO PALPITATIONS, NO SYNCOPE. GASTROINTESTINAL/ABDOMINAL: NO ABDOMINAL PAIN, NO CONSTIPATION, NO DIARRHEA, NO NAUSEA, NO VOMITING. GENITOURINARY: NO ABNORMAL DISCHARGE, NO DYSURIA, NO FREQUENT URINATION, NO HEMATURIA. NO COMPLAINTS OF PAIN IN THE GENITALS. MUSCULOSKELETAL: NO BACK PAIN, NO GOUT, NO JOINT PAIN, NO JOINT SWELLING, NO MUSCLE PAIN, NO MUSCLE STIFFNESS, NO NECK PAIN. INTEGUMENTARY: NO CHANGE IN COLOR, NO CHANGE IN HAIR/NAILS, NO DRYNESS, NO LESION, NO LUMPS, NO RASH. NEUROLOGICAL/PSYCH: NO ANXIETY, NOT DEPRESSED, NO EMOTIONAL PROBLEM, NO HEADACHE, NO NUMBNESS, NO PRE-EXISTING DEFICIT, NO HISTORY OF SEIZURES, NO TREMORS, NO WEAKNESS. HEMATOLOGIC/LYMPHATIC: NOT ANEMIC, NO HISTORY OF BLOOD CLOTS, NO APPARENT BLEEDING, NO BRUISING, GLANDS NOT SWOLLEN. ALL SYSTEMS NEGATIVE, EXCEPT NOTED. Physical Exam Physical Exam Dictation VITAL SIGNS: REVIEWED. GENERAL APPEARANCE: ALERT, ORIENTED X3, NO ACUTE DISTRESS, OBESE. HEAD AND FACE: NON-TRAUMATIC. EYES: PERRL, PINK CONJUNCTIVAS, EYELID NO TRAUMA, ANTERIOR CHAMBER CLEAR. EARS: PINNAS INTACT AND NO SIGNS OF TRAUMA OR ERYTHEMA. EAR CANALS CLEAR AND NO DISCHARGE. TMS NO ERYTHEMA. NOSE: NO DISCHARGE, NO BLEEDING. OROPHARYNX: MOUTH NORMAL, TEETH NO CARIES, TONGUE PINK. PHARYNX CLEAR, NO ERYTHEMA. TONSILS NO EXUDATES, NO ABSCESSES NOTED. MUCOUS MEMBRANE MOIST. NECK: SUPPLE, NON-TENDER, NO THYROMEGALY, NO MASSES, NO JVD, NO BRUITS. BREAST: DEFERRED. CHEST: NO TENDERNESS, NO CREPITUS, NO PARADOXICAL MOVEMENT, NO RETRACTIONS. LUNGS: CLEAR, WELL-VENTILATED, SYMMETRIC, NO RALES, NO WHEEZING, NO RHONCHI, NO STRIDOR, GOOD BREATH SOUNDS BILATERALLY. HEART: REGULAR RATE, REGULAR RHYTHM, NO MURMUR, NO GALLOPS. VASCULAR: NO PERIPHERAL EDEMA. ABDOMEN: SOFT, POSITIVE BOWEL SOUNDS, NONDISTENDED, NO GUARDING, NONTENDER, NO REBOUND, NO MASSES NO HEPATOMEGALY, NO SPLENOMEGALY, NO PAYTON'S SIGN, NO HERNIAS. RECTAL: DEFERRED. GENITAL: DEFERRED. NEUROLOGICAL: NORMAL SPEECH, GROSS MOTOR FUNCTION INTACT, GROSS SENSORY FUNCTION INTACT. MUSCULOSKELETAL: NECK NONTENDER, FULL RANGE OF MOTION, BACK NONTENDER, FULL RANGE OF MOTION. EXTREMITIES: NONTENDER, FULL RANGE OF MOTION. SKIN: COLOR PINK, DRY, NO TURGOR, NO RASH, NO LACERATIONS, NO ABRASIONS, NO CONTUSIONS. LYMPHATICS: DEFERRED. Results Laboratory and Microbiology Lab and Micro Result Laboratory Tests Test 11/05/24 08:51 11/05/24 09:59 White Blood Count 10.6 K/uL (4.8-10.8) Red Blood Count 4.64 MIL/uL (4.50-6.20) Hemoglobin 12.2 g/dL (14.0-18.0) L Hematocrit 40.6 % (42-54) L Mean Corpuscular Volume 87.5 fL (79-99) Mean Corpuscular Hemoglobin 26.3 pg (27.0-33.0) L Mean Corpuscular Hemoglobin Concent 30.0 g/dL (32.0-36.0) L Red Cell Distribution Width 16.0 % (11.0-15.5) H Platelet Count 177 K/uL (130-400) Mean Platelet Volume 10.4 fL (7.5-10.5) Nucleated Red Blood Cells 0.0 % (0.0-0.19) Prothrombin Time 10.3 SEC (9.6-11.6) Prothromb Time International Ratio 0.97 (0.85-1.15) Activated Partial Thromboplast Time 23.8 SEC (26.3-35.5) L Sodium Level 143 mmol/L (136-145) Potassium Level 3.7 mmol/L (3.5-5.1) Chloride Level 107 mmol/L (101-111) Carbon Dioxide Level 29 mmol/L (21-32) Blood Urea Nitrogen 22 mg/dL (7-18) H Creatinine 1.2 mg/dL (0.5-1.3) Glomerular Filtration Rate Calc 63 mL/min (>90) Random Glucose 85 mg/dL (70-105) Total Calcium 8.6 mg/dL (8.5-10.1) Magnesium Level 1.80 mg/dL (1.80-2.40) Total Creatine Kinase 180 U/L (21-232) # Troponin I High Sensitivity 44 ng/L (4-75) 50 ng/L (4-75) B-Type Natriuretic Peptide 139 pg/mL (0-100) H Labs Reviewed?: Yes EKG/XRAY/US/CT/MRI EKG Comment 11/05/2024 TIME 8:46 A.M. VENTRICULAR RATE 67 SINUS RHYTHM [place] [address] WAVE ELEVATION OR DEPRESSION X-RAY Comment [place] [address] [address] IMAGING REPORT Signed PATIENT: ATTILA MERLOS MR#: [id number] : 1950 SEX: M AGE: 74 LOCATION: [facility] ORDER STATUS: [facility] REPORT#: [id number] SERVICE REASON: SYNCOPAL EPISODE ORDERING PHYSICIAN: YUSUF ROY MD PROCEDURE: CXR1VW - CHEST 1VW Exam Type: CHEST 1VW Clinical Information: SYNCOPAL EPISODE Comparison: None Findings: There is cardiomegaly and there is status post median sternotomy. The lungs are clear of infiltrates. Impression: Clear lungs. DICTATED BY: LIZY KESSLER MD DATE: 11/05/24936 ELECTRONICALLY SIGNED BY: LIZY KESSLER MD DATE: 11/05/24939 CT Scan Comment [facility] [address] [place] [address] IMAGING REPORT Signed PATIENT: ATTILA MERLOS MR#: [id number] : 1950 SEX: M AGE: 74 LOCATION: [facility] ORDER 7 STATUS: [facility] ER REPORT#: [id number] SERVICE 5 REASON: SYNCOPAL EPISODE ORDERING PHYSICIAN: YUSUF ROY MD PROCEDURE: HEAD WO - CT HEAD/BRAIN W/O CONTRAST Exam Type: CT HEAD/BRAIN W/O CONTRAST Clinical Information: SYNCOPAL EPISODE Comparison: None CT Dose Index (CTDI): 57.33 mGy Dose Length Product (DLP): 956.79 total mGy-cm Findings: The examination shows atrophy. There is low attenuation throughout the periventricular white matter locations, consistent with chronic small vessel ischemic changes. No acute intra- or extra-axial fluid collections are seen. There is no evidence of acute or chronic hemorrhage. There is no mass effect or shift of midline structures. There are no areas to suggest acute infarct. The skull windows show no significant abnormalities. IMPRESSION: 1. ATROPHY AND CHRONIC SMALL VESSEL ISCHEMIC CHANGES. This study was performed using dose reduction techniques to include automated exposure control and/or adjustment of the mA and/or kV according to patient size. DICTATED BY: LIZY KESSLER MD DATE: 11/05/24921 ELECTRONICALLY SIGNED BY: LIZY KESSLER MD DATE: 11/05/24925 [facility] MDM: DIFFERENTIAL DIAGNOSIS: SYNCOPE AND COLLAPSE, HISTORY OF CAD, RATIONALE: TESTS CONSIDERED AND ORDERED SECONDARY TO SHARED DECISION MAKING INCLUDE: LABS, ECG AND RADIOLOGY PREVIOUS OUTSIDE RECORDS REVIEWED: OLD ER VISITS. RISK OF COMPLICATION AND/OR MORBIDITY OR MORTALITY OF PATIENT MANAGEMENT: NONE MEDICATIONS-PER MEDICATION RECONCILIATION NEED FOR HOSPITALIZATION: PATIENT DOES MEET CRITERIA FOR HOSPITALIZATION. NEED FOR EMERGENCY MAJOR/MINOR SURGERY: NO THERE ARE NO SOCIAL CONCERNS WITH THIS PATIENT. PRESCRIPTION DRUG MANAGEMENT PRESCRIPTIONS WILL INCLUDE SYMPTOMATIC CARE PATIENT'S PRIOR EXTERNAL MEDICAL RECORDS FROM OTHER ER VISITS WERE REVIEWED BY ME INDICATED. PRIOR TESTING AND RESULTS FROM PREVIOUS VISITS WERE REVIEWED. PRIOR TESTS WERE TAKEN INTO ACCOUNT WITH MEDICAL DECISION MAKING AND RESOURCE UTILIZATION, INDEPENDENT HISTORIAN/HISTORIANS WERE USED TO OBTAIN COMPLETE MEDICAL HISTORY. I INDEPENDENTLY INTERPRETED THE TEST THAT WERE PERFORMED, RESULTS WERE REVIEWED BY ME AND CONSIDERED FINDINGS ON RADIOLOGY IF ORDERED. MEDICAL MANAGEMENT AND EXAMINATION INTERPRETATION DISCUSSIONS WERE HAD BY ME WITH OTHER QUALIFIED HEALTHCARE PROFESSIONALS INDICATED FOR THE PATIENT'S CARE. SHE WILL BE ADMITTED UNDER THE CARE OF HOSPITALIST GROUP FOR ONGOING MANAGEMENT IN HIS SYNCOPAL FALL. PATIENT DOES HAS A HISTORY OF CAD. ED Course Orders Procedure Category Date Status Time Cbc Without LAB 11/05/24 In Process Differential 08:46 Basic Metabolic Panel LAB 11/05/24 Complete 08:46 B-Type Natriuretic LAB 11/05/24 In Process Peptide 08:46 Troponin I High LAB 11/05/24 Complete Sensitivity 08:46 Chest 1vw RAD 11/05/24 Resulted 08:46 Ct Head/Brain W/O CT 11/05/24 Resulted Contrast 08:46 12 Lead Ekg Tracing- EKG 11/05/24 Complete Technical 08:46 Pt And Ptt LAB 11/05/24 Complete 08:46 Iv Insertion CPOE 11/05/24 Transmitted 08:46 0.9%Nacl 1000ml (Ns PHA 11/05/24 Complete 1000ml) 09:00 Creatine Kinase, Total LAB 11/05/24 Complete 08:46 Magnesium LAB 11/05/24 Complete 08:46 Troponin I High LAB 11/05/24 Complete Sensitivity 09:51 Current Medications Medications (Trade) Dose Ordered Sig/Yakov Route PRN Reason Start Time Stop Time Status Last Admin Dose Admin Sodium Chloride 1,000 ml @ 0 mls/hr Q0M ONCE IV 11/05/24 09:00 11/05/24 09:01 DC 11/05/24 08:53 Vital Signs Date Time Temp Pulse Resp B/P (MAP) Pulse Ox O2 Delivery O2 Flow Rate FiO2 11/05/24 08:56 57 14 145/48 98 Room Air* 0 21 5/19/25 08:36 97.9 57 16 127/82 97 Room Air 0 DX & DISP Disposition: Inpatient Decision to Admit Time: 10:29 Departure Impression: Primary Impression: Syncope Additional Impression: History of CAD (coronary artery disease) Condition: Stable Referrals: NIKI RABAGO MD (PCP) YUSUF ROY MD November 05, 2024 09:55
--- NOTE | 2024-11-05 10:45 | NUR ---
Assumed patients care. Patient is alert, oriented in person, time, situation and place. No signs of respiratory distress noted. No complaints of chest pain or dizziness. Patient able to voice needs. Significant other at bedside. PIV patent, saline lock.
--- NOTE | 2024-11-05 10:46 | NUR ---
PT MOVED TO ER 20. PATIENT REPORT GIVEN TO ANABELLE FRANCO
--- NOTE | 2024-11-05 11:18 | HP ---
[facility] HISTORY AND PHYSICAL Date of Service: November 05, 2024 Time of Service: 11:18 HISTORY OF PRESENT ILLNESS: 73-year-old male with history of hypertension, hyperlipidemia, coronary artery disease with prior history of coronary artery bypass grafting in 2004 with history of subsequent stenting of saphenous vein graft to RCA in 2013, COPD, history of nephrolithiasis who is currently admitted to the hospital status post ureteroscopy with stone basketing and laser lithotripsy by Dr. Garduno on 11/15/2023 who presented to the hospital secondary to syncope. The patient states yesterday while he was walking down from the steps he passed out. He denied having any palpitations, chest pain, shortness of breath, dizziness, fever, chills prior to the event. His stairs around two flight. He additionally stairs he has been having intermittent episodes of midsternal chest pain for the past one week. Patient is not very forthcoming about his symptoms. Denied any pain radiation to the arms, numbness, shortness of breath, diap horesis, nausea, vomiting associated with the pain. During the event patient lost consciousness and fell on his left knee. He is unable to recall if he hit his head. He has never had previous episode of syncopal event. He was scheduled for outpatient stress test but was not able to make it since patient is planning to move out of the [place]. He sees Dr. Stock'alejandro as outpatient. Patient denied any abdominal pain, changes in his bowel movement, dysuria, hematuria. Denied any tongue bites, seizure-like activity during the event. Patient thereafter came to the hospital for further evaluation. Labs in the ED were notable for white count of 10.6, hemoglobin was 12.2, platelet count was 177 K, sodium was 143, potassium was 3.7, creatinine was one point, troponin was negative x2, BNP was [address] was negative for any intracranial. Chest x-ray was negative REVIEW OF SYSTEMS CONSTITUTIONAL: Denies fevers, chills, or night sweats. No unintentional weight loss reported. NEUROLOGICAL: Denies headache, amaurosis fugax, motor weakness, sensory deficit, vertigo/spinning sensation, gait abnormalities, or tremors. Positive for syncope ENT: No hearing loss, otalgia, otorrhea, rhinitis, rhinorrhea, hoarseness, or sore throat. CARDIOVASCULAR: Denies dyspnea on exertion, orthopnea, paroxysmal nocturnal dyspnea, palpitations, life-threatening arrhythmias, claudication. Positive for chest pain PULMONARY: Denies any shortness of breath, cough, phlegm/sputum, hemoptysis, pleuritic chest pain. GASTROINTESTINAL: Denies any type of dysphagia to either liquids or solids. Denies nausea, vomiting, pyrosis, early satiety, abdominal pain, diarrhea, constipation, or changes in stool consistency or caliber. Denies coffee-ground emesis, hematemesis, hematochezia, or melanotic stools. GENITOURINARY: Denies frequency, urgency, nocturia, hematuria or incontinence (Storage/Irritative symptoms.) Low urinary stream, straining to void, urinary intermittency or hesitancy, splitting of the voiding stream, terminal dribbling. ENDOCRINOLOGIC: Denies polyuria, polydipsia, polyphagia or heat/cold intolerances. HEMATOLOGIC: Denies thrombophilia/previous clots, or coagulopathy/bleeding disorders. ONCOLOGIC: Denies personal history of malignancy. DERMATOLOGIC: Denies rashes or pruritus. PSYCHIATRIC: Denies any suicidal or homicidal ideation. Denies hallucinations. PAST MEDICAL HISTORY: hypertension, hyperlipidemia, coronary artery disease with prior history of coronary artery bypass grafting in 2004 with history of subsequent stenting of saphenous vein graft to RCA in 2013, COPD, history of nephrolithiasis PAST SURGICAL HISTORY: Prior coronary artery bypass with subsequent stenting of the saphenous vein graft to the RCA Right total knee arthroplasty Cholecystectomy Appendectomy Surgery for ureteral stricture on the left Right nephrostomy placement, removed on 09/27/2023 recent Hx of Right-sided ureteroscopy and stone basketing procedure with placement of 6 Ethiopian double-J stent on right side on 09/27/2023 PAST SOCIAL HISTORY: Denied any smoking, alcohol, drug FAMILY HISTORY: Denied any pertinent family history Coded Allergies: iodine (Unverified Allergy, Intermediate, 10/15/15) morphine (Unverified Allergy, Intermediate, 10/15/15) meperidine (Unverified Allergy, Mild, 09/28/23) lidocaine (Unverified Allergy, Unknown, 07/17/23) tramadol (Unverified Allergy, Unknown, BLISTERS, REDNESS, 03/01/16) codeine (Unverified Adverse Reaction, Mild, CONSTIPATION, 10/29/17) PATIENT TOLD NURSE, NOT A TRUE ALLERGY; IT CAUSES CONSTIPATION. PHYSICAL EXAM GENERAL APPEARANCE: The patient is awake, alert, and oriented, in no acute cardiopulmonary distress. NEUROLOGICAL: Cranial nerves II-XII grossly intact. Motor is 5/5 in bilateral upper and lower extremities proximal to distal. No sensory deficits. HEENT: Face is symmetric. Pupils are equal and reactive. Extraocular movements are intact. NECK: Supple. No JVD. No thyromegaly. No submental, submandibular, pre- /postauricular, occipital or supraclavicular lymphadenopathy. CHEST: Normal chest expansion. No Telemetry. LUNGS: Mild expiratory wheezing present bilaterally CARDIOVASCULAR: Regular. S1 and S2 normal. No appreciable rubs, murmurs or gallops. ABDOMEN: Soft, nontender, and nondistended. There is no rebound, voluntary guarding, or rigidity. : Deferred. No [place]. EXTREMITIES: Non-edematous and not cyanotic. No clubbing. Good capillary refill. Bruising in the right knee SKIN: No skin breakdown. Vital Sign (Last 24 Hours) 11/05/24 11/05/24 08:36 08:56 Temp 97.9 Pulse 57 Resp 14 B/P (MAP) 145/48 Pulse Ox 98 O2 Delivery Room Air* O2 Flow Rate 0 FiO2 21 LABS: Laboratory: Test 11/05/24 09:59 11/05/24 08:51 Range/Units Troponin I High Sensitivity 50 4-75 ng/L White Blood Count 10.6 4.8-10.8 K/uL Red Blood Count 4.64 4.50-6.20 MIL/uL Hemoglobin 12.2 L 14.0-18.0 g/dL Hematocrit 40.6 L 42-54 % Mean Corpuscular Volume 87.5 79-99 fL Mean Corpuscular Hemoglobin 26.3 L 27.0-33.0 pg Mean Corpuscular Hemoglobin Concent 30.0 L 32.0-36.0 g/dL Red Cell Distribution Width 16.0 H 11.0-15.5 % Platelet Count 177 130-400 K/uL Mean Platelet Volume 10.4 7.5-10.5 fL Nucleated Red Blood Cells 0.0 0.0-0.19 % Red Blood Cell Morphology See comments Prothrombin Time 10.3 9.6-11.6 SEC Prothromb Time International Ratio 0.97 0.85-1.15 Activated Partial Thromboplast Time 23.8 L 26.3-35.5 SEC Sodium Level 143 136-145 mmol/L Potassium Level 3.7 3.5-5.1 mmol/L Chloride Level 107 101-111 mmol/L Carbon Dioxide Level 29 21-32 mmol/L Blood Urea Nitrogen 22 H 7-18 mg/dL Creatinine 1.2 0.5-1.3 mg/dL Glomerular Filtration Rate Calc 63 >90 mL/min Random Glucose 85 70-105 mg/dL Total Calcium 8.6 8.5-10.1 mg/dL Magnesium Level 1.80 1.80-2.40 mg/dL Total Creatine Kinase 180 # 21-232 U/L B-Type Natriuretic Peptide 139 H 0-100 pg/mL DIAGNOSTICS / RADIOLOGY: [ ] ASSESSMENT: Syncope POA Chest pain POA Right knee pain s/p fall Hypertension Hyperlipidemia CAD status post CABG History of COPD BPH History of nephrolithiasis PLAN: - patient to be admitted to PCCU -in reference to syncope. Patient monitored on telemetry we will obtain echocardiogram and carotid ultrasound. We will request PT evaluation -in reference to chest pain we will trend troponins q.6 hours to rule out ACS. Follow up on echocardiogram. Patient was previously scheduled for outpatient stress test request Cardiology consultation -check TSH, A1c, procalcitonin CRP -Obtain home medications which will be reconciled once available -further orders per hospitalization course. Advanced Care Planning Which of the following were discussed: Hospice care: Yes __ No _x_ Therapeutic options: Yes __ No __ Advance directives: Yes __ No __ Other discussions: Discussed with who?: patient (Patient, family or surrogates) Voluntary nature of this service was explained to the patient? Yes _x_ No __ Amount of time spent: 25 minutes BARTOLO Ren MD, MD November 05, 2024 11:18
[2024-11-05] MEDS ORDERED: PoTASSium chloRIDE 20MEQ ER 20 MEQ ERTAB PO PRN (11:30)
[2024-11-05] MEDS ORDERED: PoTASSium chloRIDE 20MEQ/100ML 100 ML IV PRN (11:30)
[2024-11-05] MEDS ORDERED: PoTASSium chl 10% ELIXIR 20MEQ 20 MEQ/15 ML UDCUP PO PRN (11:30)
[2024-11-05] MEDS ORDERED: ISOS30TA92 PO (11:56)
[2024-11-05] MEDS ORDERED: ACET-2079 PO (11:56)
[2024-11-05] MEDS ORDERED: CLOP75TA32 PO (11:56)
--- NOTE | 2024-11-05 12:03 | NUR ---
Home medication reviewed. Pending to be reconsiled by admitting physician.
--- NOTE | 2024-11-05 12:10 | HMCIMG ---
Exam Type: KNEE 3VWS LT Clinical Information: PAIN S/P FALL Comparison: None Findings: The bone examination is unremarkable. No fractures or dislocations are seen. No radiopaque foreign bodies are noted. Soft tissues are preserved. IMPRESSION: Normal examination.
--- NOTE | 2024-11-05 12:17 | NUR ---
Dr. Lopez notify me that he will reach out to Dr. Walters for new cardiology consult. I verbalized understanding.
--- NOTE | 2024-11-05 12:28 | CONS ---
[facility] CONSULTATION REPORT Cardiology consultation note dictated for Melissa Walters MD Primary parts product analyst: Pardeep Juarez MD Date Patient Seen: November 05, 2024 Requesting Physician: Ar Lopez MD Reason for Consultation: Syncope, Chest pain History of Present Illness: This is a 74-year-old male with a past medical history of hypertension, dyslipidemia, diabetes mellitus type 2, CAD s/p ACB x3 in 2004 with subsequent stenting of the Saphenous Vein Graft to the Right Coronary Artery in 2013, episode of atrial fibrillation with RVR which spontaneously converted to NSR in the setting of beta-daquan in 08/2023 not on anticoagulation, COPD, Former Smoker, Stable Angina, Anemia, and Intolerance to Aspirin due to GI bleed who presented to the ED after an unwitnessed syncopal episode yesterday afternoon. The patient states he was walking down four steps when he found himself on the floor. He denies prodromal symptoms, post-ictal confusion, loss of bowel or bladder or head trauma. He states he lost consciousness for only a few seconds. He admitted that his right knee pain is what made him seek medical attention. Cardiology has been consulted for recommendations. CT of the head was negative for acute findings. Of note, the patient admitted to having anterior chest discomfort accompanied by shortness of breath and diaphoresis earlier in the day, he was unable to recall how long it lasted. His at bedside added he had an episode of chest discomfort earlier in the week as well. He had an outpatient Lexiscan stress test planned as an outpatient on 10/16/2024 that he cancelled due to history of them making him short of breath. He refused to have a Lexiscan as an inpatient. No arrhythmias noted while in the ED. Ti 44 and 50. EKG demonstrated NSR with a hr of 67bpm, with a PAC. BNP 139. Chest x-ray was benign. Echo and Bilateral carotid US are pending. Past Medical History: As per HPI and summarized below Past Surgical History: CAD s/p ACB x3 in 2004 Right total knee arthroplasty Cholecystectomy Appendectomy Surgery for ureteral stricture on the left Right nephrostomy placement, removed on 09/27/2023 recent Hx of Right-sided ureteroscopy and stone basketing procedure with placement of 6 Lao double-J stent on right side on 09/27/2023 Family History: Noncontributory Social History: The patient with his . Habits: Denies alcohol, tobacco, or illicit drug use. Home Meds: Tylenol #3 ,1 tablet daily p.r.n. Clopidogrel 75 mg daily Atorvastatin 40 mg daily Lisinopril 2.5 mg q.h.s. Metoprolol succinate 25 mg daily Isosorbide mononitrate 30 mg daily Prednisone 20 mg daily Pantoprazole 40 mg daily Alfuzosin 10 mg q.h.s. Multivitamin 200 mcg daily Hydroxychloroquine 200 mg daily Fluoxetine 10 mg q.h.s. Current Meds: Current Medications Medications Dose Ordered Sig/Yakov Start Time Stop Time Status Last Admin Enoxaparin Sodium 30 mg DAILY 11/06/24 09:00 12/06/24 08:59 Acetaminophen 500 mg Q6H PRN 11/05/24 11:30 12/05/24 11:29 Potassium Chloride 100 ml @ 100 mls/hr AD PRN 11/05/24 11:30 12/05/24 11:29 Potassium Chloride 20 meq AD PRN 11/05/24 11:30 12/05/24 11:29 Potassium Chloride 20 meq AD PRN 11/05/24 11:30 12/05/24 11:29 Magnesium Sulfate 50 ml @ 0 mls/hr PROTOCOL PRN 11/05/24 11:30 12/05/24 11:29 Albuterol 1 UDVIAL Q6H PRN 11/05/24 12:00 12/05/24 11:59 Acetaminophen 1,000 mg HS 11/05/24 21:00 12/05/24 20:59 Atorvastatin Calcium 40 mg DAILY 11/06/24 09:00 12/06/24 08:59 Hydroxychloroquine Sulfate 200 mg AM 11/06/24 09:00 11/20/24 08:59 Lisinopril 2.5 mg HS 11/05/24 21:00 12/05/24 20:59 Metoprolol Succinate 25 mg DAILY 11/06/24 09:00 12/06/24 08:59 Pantoprazole Sodium 40 mg DAILY 11/06/24 09:00 12/06/24 08:59 Home Med (Alfuzosin HCl 10 MG) HS 11/05/24 21:00 12/05/24 20:59 Fluoxetine HCl 10 mg HS 11/05/24 21:00 12/05/24 20:59 Home Med (Multivit-Minerals/ Folic Acid (Multivit... DAILY 11/06/24 09:00 12/06/24 08:59 Clopidogrel Bisulfate 75 mg DAILY 11/05/24 13:00 12/05/24 12:59 Isosorbide Mononitrate 30 mg DAILY 11/05/24 13:00 12/05/24 12:59 Review of Systems: CONST: No fever, fatigue, or weight changes. EYES: No recent vision problems. ENT: No congestion, ear pain, or sore throat. C/V: No chest pain, palpitations, or edema. RESP: No cough, congestion, wheezing or shortness of breath. GI: No abdominal pain, nausea, vomiting, constipation, or diarrhea. : No incontinence or dysuria. SKIN: Admits to right knee pain NEURO: No headache, focal numbness or weakness, dizziness, or seizures. PSYCH: No depression or anxiety. HEME: No abnormal bruising or bleeding. LYMPH: No swollen glands. Physical Examination: GENERAL: No acute distress. HEAD: Normal with no signs of head trauma. EYES: PERRLA, EOMI, conjunctiva and sclera normal. ENT: Hearing grossly intact NECK: Supple without JVD. Normal carotid upstrokes without bruits. LUNGS: Clear breath sounds bilaterally. No wheezes, or rhonchi. HEART: Normal rate and rhythm. Normal S1 and S2 without murmurs, gallop or rub. VASC: Peripheral pulses +2 bilaterally. ABD: soft, nontender : Not examined EXT: No cyanosis or edema. SKIN: Right knee abrasion NEURO: Awake, alert, and oriented x3. No focal sensory or strength deficits noted. Vital Signs (last 8hr) Date Time Temp Pulse Resp B/P (MAP) Pulse Ox O2 Delivery O2 Flow Rate FiO2 11/05/24 08:56 57 14 145/48 98 Room Air* 0 21 11/05/24 08:36 97.9 57 16 127/82 97 Room Air 0 Laboratory: Hematology Labs: Test 11/05/24 08:51 Range/Units White Blood Count 10.6 4.8-10.8 K/uL Red Blood Count 4.64 4.50-6.20 MIL/uL Hemoglobin 12.2 L 14.0-18.0 g/dL Hematocrit 40.6 L 42-54 % Mean Corpuscular Volume 87.5 79-99 fL Mean Corpuscular Hemoglobin 26.3 L 27.0-33.0 pg Mean Corpuscular Hemoglobin Concent 30.0 L 32.0-36.0 g/dL Red Cell Distribution Width 16.0 H 11.0-15.5 % Platelet Count 177 130-400 K/uL Mean Platelet Volume 10.4 7.5-10.5 fL Nucleated Red Blood Cells 0.0 0.0-0.19 % Red Blood Cell Morphology See comments Chemistry Labs: Test 11/05/24 09:59 11/05/24 08:51 Range/Units Troponin I High Sensitivity 50 4-75 ng/L Sodium Level 143 136-145 mmol/L Potassium Level 3.7 3.5-5.1 mmol/L Chloride Level 107 101-111 mmol/L Carbon Dioxide Level 29 21-32 mmol/L Blood Urea Nitrogen 22 H 7-18 mg/dL Creatinine 1.2 0.5-1.3 mg/dL Glomerular Filtration Rate Calc 63 >90 mL/min Random Glucose 85 70-105 mg/dL Total Calcium 8.6 8.5-10.1 mg/dL Magnesium Level 1.80 1.80-2.40 mg/dL Total Creatine Kinase 180 # 21-232 U/L B-Type Natriuretic Peptide 139 H 0-100 pg/mL Coagulation Labs: Test 11/05/24 08:51 Range/Units Prothrombin Time 10.3 9.6-11.6 SEC Prothromb Time International Ratio 0.97 0.85-1.15 Activated Partial Thromboplast Time 23.8 L 26.3-35.5 SEC Diagnostics / Radiology: Impression and Plan: Syncope Stable Angina Hypertension Dyslipidemia Diabetes Mellitus Type 2 CAD Status Post ACB x3 in 2004 Subsequent Stenting of the SVG-RCA in 2013 COPD Former Smoker Anemia Paroxysmal atrial fibrillation not on anticoagulation Intolerance to Aspirin due to GI bleed Allergy to Iodine Syncope -Obtain orthostatic vitals -2D Echocardiogram and Bilateral carotid US are pending Stable Angina Ti 44 and 50. EKG demonstrated NSR with a hr of 67bpm, with a PAC. Refused a Lexiscan stress test Intolerance to Aspirin due to GI bleed -Continue Clopidogrel 75 mg daily, Atorvastatin 40 mg daily, Lisinopril 2.5 mg q.h.s., Metoprolol succinate 25 mg daily, and Isosorbide mononitrate 30 mg daily -NPO after midnight for a Dobutamine stress test echo [facility] November 05, 2024 12:28
--- NOTE | 2024-11-05 12:42 | NUR ---
SHOPPER'S AIDE for cardiology Mrs. Hernadez evaluated patient.
[2024-11-05] MEDS: cloPIDOgrel 75MG TAB PO SCH (13:00)
[2024-11-05] MEDS: ISOSORBIDE MONO 30MG SR TAB PO SCH (13:00)
[2024-11-05 13:24] VITALS: PULSE 65; RESP 20
[2024-11-05] MEDS: IpraTROPium/alBUTERol SULFATE 3 ML SOLUTION IH PRN (13:24)
[2024-11-05 13:26] VITALS: PULSE 65; RESP 20; O2SAT 94
--- NOTE | 2024-11-05 14:00 | NUR ---
Notify Physical Therapy about evaluation; spoke with Mr. Rendon, he verbalized understanding.
--- NOTE | 2024-11-05 14:00 | NUR ---
Called Mrs. Javier KRYSTEN to give report; spoke with Miss Jacqueline MENDEZ, she notify me Mrs. Javier was at lunch. I gave her my extention [phone] for a call back.
--- NOTE | 2024-11-05 14:53 | NUR ---
DCP: HOME SW met with pt and Gricelda Salter [phone]. Couple lives in mobile home with 4 steps to enter. Pt reports he remains able to complete his ADLS, and transportation on his own. Pt uses a walker with seat. no HH or HD services. pcp is [facility] Bonilla and uses [facility] for rx. Couple deny dc needs and will take pt home at dc Addendum: 11/05/24 at 1456 by BERNIE PIKE SS Amended: Links added.
--- NOTE | 2024-11-05 15:10 | NUR ---
spoke to Mrs. Concepcion BASHIR and gave her report. Notify her that home medications have been reconsiled by phycisian. She verbalized understanding.
--- NOTE | 2024-11-05 15:18 | HMCIMG ---
Carotid Duplex and color-flow Doppler bilateral Clinical Information: syncope Comparison: None Findings: Mild bilateral bifurcation plaque is seen. No hemodynamically significant stenosis noted. Left Internal Carotid Artery Peak Systolic Velocity (PSV), Left Internal Carotid to Common Carotid Artery peak systolic velocity ratio, Right Internal Carotid Artery Peak Systolic Velocity (PSV) and Right Internal Carotid to Common Carotid Artery peak systolic velocity ratio, are all within normal limits. External carotid artery velocities normal bilaterally. Bilateral vertebral arteries show normal velocities and waveforms with antegrade flow. Impression: No hemodynamically significant stenosis noted. NASCET CRITERIA. The degree of internal carotid artery stenosis is based on NASCET criteria. Normal is no stenosis. Mild is less than 50% stenosis. Moderate is 50-69% stenosis. Severe is 70% to 99% stenosis. Total occlusion is no detectable patent lumen.
[2024-11-05 15:50] VITALS: BP 146/60; PULSE 62; RESP 19; TEMP 97.7
[2024-11-05 16:10] VITALS: O2SAT 97
[2024-11-05 20:02] VITALS: BP 160/88; PULSE 66; RESP 20; TEMP 98
[2024-11-05 20:03] VITALS: BP_SYST 159; BP_SYST 164; BP_DIAS 79; BP_DIAS 90; PULSE 68; PULSE 70; RESP 20
[2024-11-05] MEDS: FLUoxetine HCL 10 MG CAPSULE PO SCH (20:06)
[2024-11-05] MEDS: LISINOPRIL 2.5 MG TABLET PO SCH (20:06)
[2024-11-05] MEDS: acetaMINOPHEN 500 MG TABLET PO SCH (20:07)
[2024-11-05] MEDS: MAGNESIUM 2GM PREMIX 50ML 50 ML IV PRN (20:15)
[2024-11-05] MEDS: hydrALAZine 20MG/ML VIAL IV ONE (23:52)
[2024-11-06] VITALS (11 sets, daily range): BP systolic 102–163; BP diastolic 41–90; PULSE 58–72; RESP 18–20; TEMP 97.8–98.1; O2SAT 96–98
[2024-11-06] MEDS: acetaMINOPHEN 500 MG TABLET PO PRN (00:48)
[2024-11-06] MEDS: ondanSETRON 4MG INJ IVP PRN (01:58)
[2024-11-06] MEDS: ketOROlac 15MG/ML VIAL (15MG/ML) IV ONE (02:08)
[2024-11-06 05:55] LABS: CREATININE 1.1 mg/dL (0.5-1.3)
[2024-11-06 05:56] LABS: BASOPHILS # (AUTO) 0.05 K/uL (0.00-0.20); BASOPHILS % (AUTO) 0.5 % (0.0-5.0); EOSINOPHILS # (AUTO) 0.18 K/uL (0.00-0.70); EOSINOPHILS % (AUTO) 1.7 % (0.0-8.0); HEMATOCRIT 38.9 % (42-54); IMMATURE GRANULOCYTE ABSOLUTE 0.15 K/uL (0-1); LYMPHOCYTES # (AUTO) 0.6 K/uL (1.0-4.8); LYMPHOCYTES % (AUTO) 5.8 % (21.0-51.0); MEAN CORPUSCULAR HEMOGLOBIN 26.2 pg (27.0-33.0); MEAN CORPUSCULAR HGB CONC 30.6 g/dL (32.0-36.0); MEAN CORPUSCULAR VOLUME 85.5 fL (79-99); MONOCYTES # (AUTO) 1.1 K/uL (0.1-1.0); MONOCYTES % (AUTO) 10.2 % (3.0-13.0); NEUTROPHILS # (AUTO) 8.3 K/uL (1.8-7.7); NEUTROPHILS % (AUTO) 80.3 % (40.0-77.0); PLATELET COUNT (AUTO) 166 K/uL (130-400); RED BLOOD CELL COUNT(AUTO) 4.55 MIL/uL (4.50-6.20); RED CELL DISTRIBUTION WIDTH 16.1 % (11.0-15.5); WHITE BLOOD COUNT (AUTO) 10.3 K/uL (4.8-10.8)
--- NOTE | 2024-11-06 07:14 | PN ---
ATTESTATION BY PHYSICIAN I have seen and examined the patient. I reviewed the documentation, medical decision making, and treatment plan as noted by the mid-level provider above. I agree with the findings and plan of care. SANTOSH MARTINEZ MD [facility] Cardiology Progress Note Cardiology progress note dictated for Santosh Martinez MD Date of service 11/06/2024 Problem list: Syncope Angina Hypertension Dyslipidemia Diabetes Mellitus Type 2 CAD Status Post ACB x3 in 2004 Subsequent Stenting of the SVG-RCA in 2013 COPD Former Smoker Anemia Paroxysmal atrial fibrillation not on anticoagulation Intolerance to Aspirin due to GI bleed Allergy to Iodine Review of blood work: Troponin high sensitivity for 84, 50, 48, 71 with BNP 139. Basic metabolic panel sodium 138 potassium of 4.0 BUN of 20 and a creat inine of 1.1 with a GFR of 70 and a magnesium of 2.00 with a total calcium of 8.4. CBC with white blood cells of 10.3, hemoglobin of 11.9 hematocrit of 38.9 platelets of 166. Current medications: Metoprolol succinate 25 mg daily, pantoprazole 40 mg da calderon, atorvastatin 40 mg daily, Lovenox 30 subcutaneously daily, lisinopril 2.5 mg at hours sleep, clopidogrel 75 mg daily and isosorbide mononitrate 30 mg daily. 74-year-old male presented for evaluation of pain to his knee status post syncopal episode and fall. Patient has a history of coronary artery disease with bypass surgery in 2004 and stable angina. As an outpatient he reported chest pain on last visit and he was scheduled for a Lexiscan Cardiolite. This was scheduled for September but patient declined the test. States it takes the air out of him. Cardiac enzymes were cycled overnight with total of 44, 50, 48 and 71. Twelve lead EKG demonstrated no ST or T-wave abnormalities but frequent PACs. As part of his workup he had a CT of the head demonstrated atrophy chronic small-vessel ischemic changes but no acute findings. Chest x-ray with cardiomegaly and clear lungs. Carotid ultrasound no hemodynamically significant stenosis noted. He is pending a 2D echocardiogram this morning. Blood pressure this morning is 122/55 he required a dose of PRN hydralazine overnight due to blood pressure of 160/88. His heart rate this morning is 60 beats per minute and regular lungs are clear to auscultation and no pedal edema noted. He does have an abrasion to the left knee that is open to air, dime- size. He is alert awake oriented. We discussed options for further ischemic workup. I explained procedure for left heart catheterization and CCTA risks and benefits. He wants to proceed with a CCTA this morning. He is allergic to iodine and we will administer Solu-Medrol and Benadryl IV on-call. Addendum: Despite taking oral metoprolol and receiving IV doses of Lopressor heart rate was still too high to perform a CT coronary angiogram. After discussion with the patient he is willing to proceed with a Lexiscan Cardiolite stress test for risk stratification. He is having headaches with the isosorbide medicine and this will be discontinued and we will place him on ranolazine. BRYAN FRANCOIS November 06, 2024 07:14 SANTOSH MARTINEZ MD November 06, 2024 13:29
[2024-11-06] MEDS: DiphenhydrAMINE HCL 50 MG/ML VIAL IV ONE (08:27)
[2024-11-06] MEDS ORDERED: IOHEXOL 350 MG/ML 100ML INFUS..BTL IV ONE (08:31)
[2024-11-06] MEDS: Solu-medROL 125MG VIAL IV ONE (08:32)
[2024-11-06] MEDS: Solu-medROL 125MG VIAL IM ONE (08:37)
[2024-11-06] MEDS ORDERED: metoPROLOL tartRATE 1 MG/ML 5ML VIAL IV ONE (08:51)
[2024-11-06] MEDS ORDERED: cloPIDOgrel 75MG TAB PO SCH (09:00)
[2024-11-06] MEDS ORDERED: ISOSORBIDE MONO 30MG SR TAB PO SCH (09:00)
[2024-11-06] MEDS: MULTIVIT MINERALS PO SCH (09:00)
[2024-11-06] MEDS ORDERED: FAMOTIDINE 20MG VIAL IV SCH (09:00)
[2024-11-06] MEDS ORDERED: ENOXAPARIN SODIUM 30 MG/0.3 ML SQ SCH (09:00)
[2024-11-06] MEDS: FOLIC ACID PO SCH (09:00)
--- NOTE | 2024-11-06 10:01 | PN ---
[facility] PROGRESS NOTE Date of Service: November 06, 2024 Time of Service: 09:54 SUBJECTIVE: 73-year-old male with history of hypertension, hyperlipidemia, coronary artery disease with prior history of coronary artery bypass grafting in 2004 with history of subsequent stenting of saphenous vein graft to RCA in 2013, COPD, history of nephrolithiasis, status post ureteroscopy with stone basketing and laser lithotripsy by Dr. Garduno on 11/15/2023 who who presented to the hospital secondary to syncope. The patient stated that he was walking down from the steps and he passed out. He denied having any palpitations, chest pain, shortness of breath, dizziness, fever, chills prior to the event. He additionally e has been having intermittent episodes of midsternal chest pain for the past one week. He was scheduled for outpatient stress test but was not able to make it since patient is planning to move [place] of the [place]. He sees Dr. Ovalle as outpatient. Labs in the ED were notable for white count of 10.6, hemoglobin was 12.2, platelet count was 177 K, sodium was 143, potassium was 3.7, creatinine was one point, troponin was negative x2, BNP was [address] atrophy and chronic small-vessel ischemic changes. Chest X-ray with clear lungs. Carotid Doppler no hemodynamically significant stenosis X-ray of the left knee normal examination. No fracture, no dislocation, no foreign bodies noted. 11/06 blood pressure 122/55, afebrile, saturating normal on room air. Hemoglobin 11.9, hematocrit 38.9, platelet count 166. Patient alert and oriented x3, saturating normal on room air. Discussed with the RN, unable to perform coronary angiography CT as heart rate fluctuating. Remains admitted to the medical floor Cardiology consultation requested, echocardiogram requested. Patient refused Lexiscan stress test Coronary Angiography CT ordered. Unable to be performed as heart rate fluctuating, cardiology contemplating the possibility of left heart catheterization. Discussed with the patient. Patient noted to have hemoglobin of 12.2, we will order stool occult blood, if positive we will request GI consultation, follow CBC in a.m. and transfuse as needed Patient intolerant to aspirin due to history of GI bleed, continue Plavix 75 mg p.o. daily. We will discontinue Lovenox, start SCDs for DVT prophylaxis REVIEW OF SYSTEMS CONSTITUTIONAL: Denies fevers, chills, or night sweats. No unintentional weight loss reported. NEUROLOGICAL: Denies headache, amaurosis fugax, motor weakness, sensory deficit, vertigo/spinning sensation, gait abnormalities, or tremors. Positive for syncope ENT: No hearing loss, otalgia, otorrhea, rhinitis, rhinorrhea, hoarseness, or sore throat. CARDIOVASCULAR: Denies dyspnea on exertion, orthopnea, paroxysmal nocturnal dyspnea, palpitations, life-threatening arrhythmias, claudication. Positive for chest pain PULMONARY: Denies any shortness of breath, cough, phlegm/sputum, hemoptysis, pleuritic chest pain. GASTROINTESTINAL: Denies any type of dysphagia to either liquids or solids. Denies nausea, vomiting, pyrosis, early satiety, abdominal pain, diarrhea, constipation, or changes in stool consistency or caliber. Denies coffee-ground emesis, hematemesis, hematochezia, or melanotic stools. GENITOURINARY: Denies frequency, urgency, nocturia, hematuria or incontinence (Storage/Irritative symptoms.) Low urinary stream, straining to void, urinary intermittency or hesitancy, splitting of the voiding stream, terminal dribbling. ENDOCRINOLOGIC: Denies polyuria, polydipsia, polyphagia or heat/cold intolerances. HEMATOLOGIC: Denies thrombophilia/previous clots, or coagulopathy/bleeding disorders. ONCOLOGIC: Denies personal history of malignancy. DERMATOLOGIC: Denies rashes or pruritus. PSYCHIATRIC: Denies any suicidal or homicidal ideation. Denies hallucinations. PHYSICAL EXAM GENERAL APPEARANCE: The patient is awake, alert, and oriented, in no acute cardiopulmonary distress. NEUROLOGICAL: Cranial nerves II-XII grossly intact. Motor is 5/5 in bilateral upper and lower extremities proximal to distal. No sensory deficits. HEENT: Face is symmetric. Pupils are equal and reactive. Extraocular movements are intact. NECK: Supple. No JVD. No thyromegaly. No submental, submandibular, pre- /postauricular, occipital or supraclavicular lymphadenopathy. CHEST: Normal chest expansion. No Telemetry. LUNGS: Mild expiratory wheezing present bilaterally CARDIOVASCULAR: Regular. S1 and S2 normal. No appreciable rubs, murmurs or ga llops. ABDOMEN: Soft, nontender, and nondistended. There is no rebound, voluntary guarding, or rigidity. : Deferred. No [place]. EXTREMITIES: Non-edematous and not cyanotic. No clubbing. Good capillary refill. Bruising in the right knee SKIN: No skin breakdown. Vital Signs (last 8hr) Date Time Temp Pulse Resp B/P (MAP) Pulse Ox O2 Delivery O2 Flow Rate FiO2 11/06/24 07:38 72 20 N/A Room Air 21 11/06/24 04:32 97.9 60 18 122/55 97 Room Air LABS: Laboratory: Test 11/06/24 04:41 11/05/24 19:50 11/05/24 08:51 Range/Units White Blood Count 10.3 4.8-10.8 K/uL Red Blood Count 4.55 4.50-6.20 MIL/uL Hemoglobin 11.9 L 14.0-18.0 g/dL Hematocrit 38.9 L 42-54 % Mean Corpuscular Volume 85.5 79-99 fL Mean Corpuscular Hemoglobin 26.2 L 27.0-33.0 pg Mean Corpuscular Hemoglobin Concent 30.6 L 32.0-36.0 g/dL Red Cell Distribution Width 16.1 H 11.0-15.5 % Platelet Count 166 130-400 K/uL Mean Platelet Volume 11.0 H 7.5-10.5 fL Immature Granulocyte % (Auto) 1.5 H 0-1 % Neutrophils (%) (Auto) 80.3 H 40.0-77.0 % Lymphocytes (%) (Auto) 5.8 L 21.0-51.0 % Monocytes (%) (Auto) 10.2 3.0-13.0 % Eosinophils (%) (Auto) 1.7 0.0-8.0 % Basophils (%) (Auto) 0.5 0.0-5.0 % Neutrophils # (Auto) 8.3 H 1.8-7.7 K/uL Lymphocytes # (Auto) 0.6 L 1.0-4.8 K/uL Monocytes # (Auto) 1.1 H 0.1-1.0 K/uL Eosinophils # (Auto) 0.18 0.00-0.70 K/uL Basophils # (Auto) 0.05 0.00-0.20 K/uL Absolute Immature Granulocyte (auto 0.15 0-1 K/uL Nucleated Red Blood Cells 0.0 0.0-0.19 % White Cell Morphology Comment See comments Sodium Level 138 136-145 mmol/L Potassium Level 4.0 3.5-5.1 mmol/L Chloride Level 103 101-111 mmol/L Carbon Dioxide Level 26 21-32 mmol/L Blood Urea Nitrogen 20 H 7-18 mg/dL Creatinine 1.1 0.5-1.3 mg/dL Glomerular Filtration Rate Calc 70 >90 mL/min Random Glucose 77 70-105 mg/dL Total Calcium 8.4 L 8.5-10.1 mg/dL Magnesium Level 2.00 1.80-2.40 mg/dL Troponin I High Sensitivity 71 4-75 ng/L Red Blood Cell Morphology See comments Prothrombin Time 10.3 9.6-11.6 SEC Prothromb Time International Ratio 0.97 0.85-1.15 Activated Partial Thromboplast Time 23.8 L 26.3-35.5 SEC Total Creatine Kinase 180 # 21-232 U/L B-Type Natriuretic Peptide 139 H 0-100 pg/mL Current Medications Medications (Trade) Dose Ordered Sig/Yakov Route PRN Reason Start Time Stop Time Status Last Admin Dose Admin Acetaminophen (TYLenol 500MG TAB) 500 mg Q6H PRN PO MILD PAIN (1-3) 11/05/24 11:30 12/05/24 11:29 11/06/24 00:48 500 MG Acetaminophen (TYLenol 500MG TAB) 1,000 mg HS PO 11/05/24 21:00 12/05/24 20:59 11/05/24 20:07 1,000 MG Albuterol (DUOneb) 1 UDVIAL Q6H PRN IH SHORTNESS OF BREATH 11/05/24 12:00 12/05/24 11:59 11/05/24 13:24 1 UDVIAL Atorvastatin Calcium (LIPItor 40MG) 40 mg DAILY PO 11/06/24 09:00 12/06/24 08:59 Clopidogrel Bisulfate (plaVIX 75MG) 75 mg DAILY PO 11/05/24 13:00 12/05/24 12:59 Clopidogrel Bisulfate (plaVIX 75MG) 75 mg DAILY PO 11/06/24 09:00 11/05/24 12:39 DC Enoxaparin Sodium (Lovenox) 30 mg DAILY SQ 11/06/24 09:00 12/06/24 08:59 Famotidine (Pepcid 20mg Vial) 20 mg DAILY IV 11/06/24 09:00 11/05/24 12:18 DC Fluoxetine HCl (PROzac 10mg CAP) 10 mg HS PO 11/05/24 21:00 12/05/24 20:59 11/05/24 20:06 10 MG Home Med (Home Medication) (Alfuzosin HCl 10 MG) HS PO 11/05/24 21:00 12/05/24 20:59 Home Med (Home Medication) (Multivit-Minerals/ Folic Acid (Multivit... DAILY PO 11/06/24 09:00 12/06/24 08:59 Hydroxychloroquine Sulfate (PLAQuenil 200MG) 200 mg AM PO 11/06/24 09:00 11/20/24 08:59 Isosorbide Mononitrate (Imdur 30mg Sr) 30 mg DAILY PO 11/05/24 13:00 12/05/24 12:59 Isosorbide Mononitrate (Imdur 30mg Sr) 30 mg DAILY PO 11/06/24 09:00 11/05/24 12:39 DC Lisinopril (Prinivil 2.5mg) 2.5 mg HS PO 11/05/24 21:00 12/05/24 20:59 11/05/24 20:06 2.5 MG Magnesium Sulfate 50 ml @ 0 mls/hr PROTOCOL PRN IV hypomagnesium 11/05/24 11:30 12/05/24 11:29 11/05/24 20:15 25 MLS/HR Metoprolol Succinate (TopROL XL) 25 mg DAILY PO 11/06/24 09:00 12/06/24 08:59 Ondansetron HCl (zoFRAN 4MG INJ) 4 mg Q6H PRN IVP NAUSEA/VOMITING 11/06/24 02:00 12/06/24 01:59 11/06/24 01:58 4 MG Pantoprazole Sodium (PROTonix 40MG TAB) 40 mg DAILY PO 11/06/24 09:00 12/06/24 08:59 Potassium Chloride 100 ml @ 100 mls/hr AD PRN IV POTASSIUM PROTOCOL 11/05/24 11:30 12/05/24 11:29 Potassium Chloride (K-Dur/Klor-Con 20meq) 20 meq AD PRN PO POTASSIUM PROTOCOL 11/05/24 11:30 12/05/24 11:29 Potassium Chloride (KCl 10% Elixir 20meq/15ml) 20 meq AD PRN PO POTASSIUM PROTOCOL 11/05/24 11:30 12/05/24 11:29 DIAGNOSTICS / RADIOLOGY: [ ] ASSESSMENT: Syncope POA Chest pain POA Right knee pain s/p fall Hypertension Hyperlipidemia CAD status post CABG History of COPD BPH History of nephrolithiasis PLAN: Remains admitted to the medical floor Cardiology consultation requested, echocardiogram requested. Patient refused Lexiscan stress test Coronary Angiography CT ordered. Unable to be performed as heart rate fluctuating, cardiology contemplating the possibility of left heart catheterization. Discussed with the patient. Patient noted to have hemoglobin of 12.2, we will order stool occult blood, if positive we will request GI consultation, follow CBC in a.m. and transfuse as needed Patient intolerant to aspirin due to history of GI bleed, continue Plavix 75 mg p.o. daily. We will discontinue Lovenox, start SCDs for DVT prophylaxis NEURO: Minimize central acting medications as possible. Fall Precautions. Well lighted room through the day and minimize interruptions through the night to prevent acute delirium. PULMONARY: Supplemental 02 as needed BiPAP as necessary, for respiratory distress Titrate Fio2 to keep Spo2 > or = 90% DuoNebs and CPT as needed IS hourly while awake for pulmonary hygiene prn Out of bed to chair as tolerated Maintain aspiration precautions at all times CARDIOVASCULAR: Follow hemodynamics. Vital signs per facility protocol GI & NUTRITION: Continue nutritional support Aspirations precautions Prokinetic agents and laxatives as needed KIDNEYS & ELECTROLYTES: Strict monitoring of intake and output Daily weights Avoid nephrotoxic agents Monitor electrolytes and replace as needed Goal urine output of 30mL/hr or 0.5mL/kg/hr Medications to be dosed according to renal function. Avoid contrast if possible ENDOCRINE: Maintain blood glucose between 100-180 at all times. Insulin sliding scale for blood glucose management Hypoglycemia and hyperglycemia protocol in place INFECTIOUS DISEASE: Trend temperature, WBC and procalcitonin level Follow cultures, deescalate antibiotics as soon as possible. Panculture if new onset fever HEMATOLOGY & COAGULATION: Monitor H&H. Keep Hgb > 7 Transfuse 1 unit of PRBC for Hgb < 7 Transfuse 1 pack of platelets of platelets < 20, 000 Watch for any signs and symptoms of bleeding SKIN: Pressure ulcer prevention per facility protocol Specialty mattress as needed ORTHO/REHAB Continue PT/OT PRN: MEDICATIONS Tylenol 650 mg po every 4 hrs for fever zofran 4 mg IV every 6 hrs for n/v Hydralazine 5 mg IV every 4 hrs systolic pressure > 160 bowel regiment: lactulose 20 gm PO BID PRN constipation Supportive measures: Continue GI and DVT prophylaxis Disposition: Pending improvement in clinical condition All questions answered time spent: > 35 min OCTAVIA KENADLL MD November 06, 2024 10:01
[2024-11-06] MEDS: atorVAStatin 40 MG TABLET PO SCH (12:44)
[2024-11-06] MEDS: hydroXYCHLOroquine SULFate 200 MG TAB PO SCH (12:44)
[2024-11-06] MEDS: metOPROLol sucCINATE 25 MG TAB.SR.24H PO SCH (12:45)
[2024-11-06] MEDS: PANTOPrazole 40 MG TAB DR PO SCH (12:45)
--- NOTE | 2024-11-06 16:39 | CONS ---
GASTROENTEROLOGY CONSULTATION NOTE Date of Consultation: November 06, 2024 Time of Consultation: 16:39 History of Present Illness: This is a 74-year-old male with past medical history of hypertension, hyperlipidemia, CAD, CABG who presented to syncope. He also has a history of COPD T and recently underwent a ureteroscopy with stone basketing and laser lithotripsy on 11/15/2023. He reported chest pain. He is being followed by Cardiology. We are consulted due to positive FOBT and anemia. Review of Systems: CONSTITUTIONAL: No malaise or change in sensation of wellbeing. ENMT: No rhinorrhea, otorrhea, sinus pain, ear ache. CARDIOVASCULAR: No angina, palpitations, orthopnea or paroxysmal dyspnea. RESPIRATORY: No SOB. GASTROINTESTINAL: No abdominal pain, nausea, vomiting, diarrhea, hematemesis, melena or change in the patient's habitual bowel movements consistency/number. GENITOURINARY: No dysuria, hematuria or change in bladder continence. MUSCULOSKELETAL: No new muscle pain or decrease in muscular strength. No new manda nt swelling, redness or tenderness. SKIN: No new rash. Past Medical History: [ ] Past Surgical History: [ ] Past Social History: [ ] Family History: [ ] Coded Allergies: iodine (Unverified Allergy, Intermediate, 10/15/15) morphine (Unverified Allergy, Intermediate, 10/15/15) meperidine (Unverified Allergy, Mild, 09/28/23) lidocaine (Unverified Allergy, Unknown, 07/17/23) tramadol (Unverified Allergy, Unknown, BLISTERS, REDNESS, 03/01/16) codeine (Unverified Adverse Reaction, Mild, CONSTIPATION, 10/29/17) PATIENT TOLD NURSE, NOT A TRUE ALLERGY; IT CAUSES CONSTIPATION. Physical Exam: GEN: Awake, alert, oriented in person, time and place, and in no acute distress. HEENT: No sinus tenderness. Tympanic membranes were not examined. No rhinorrhea. Oral pharyngeal mucosa is pink, moist and within normal limits. Neck is supple with no cervical lymphadenopathy, thyromegaly or JVD. CHEST: Inspection, palpation and percussion of the chest were unremarkable. Lung auscultation revealed normal breath sounds bilaterally. CARDIAC: PMI is within normal limits. Heart sounds are regular. Normal S1, S2. No gallop or murmur. ABD: Soft, non-tender and not distended. No peritoneal signs on palpation. No organomegaly. Normal bowel sounds. EXT: No cyanosis or clubbing. No edema. SKIN: Intact. No rashes. JOINTS: No evidence of synovitis or acute arthritis. NEURO: Alert and oriented to name, place and person. Cranial nerve examination is unremarkable. No focal motor deficits. Normal speech. Gait is normal. Strength is normal. Vital Sign (Last 24 Hours) 11/05/24 11/06/24 11/06/24 20:00 07:38 12:00 Temp 97.9 Pulse 58 Resp 19 B/P (MAP) 135/90 Pulse Ox 95 O2 Delivery Room Air O2 Flow Rate 0 FiO2 21 Intake & Output (last 24hrs) 11/05/24 11/05/24 11/06/24 15:00 23:00 07:00 Intake Total 50.0 ml Balance 50.0 ml Laboratory: [ ] Laboratory: Test 11/06/24 04:41 11/05/24 19:50 11/05/24 08:51 Range/Units White Blood Count 10.3 4.8-10.8 K/uL Red Blood Count 4.55 4.50-6.20 MIL/uL Hemoglobin 11.9 L 14.0-18.0 g/dL Hematocrit 38.9 L 42-54 % Mean Corpuscular Volume 85.5 79-99 fL Mean Corpuscular Hemoglobin 26.2 L 27.0-33.0 pg Mean Corpuscular Hemoglobin Concent 30.6 L 32.0-36.0 g/dL Red Cell Distribution Width 16.1 H 11.0-15.5 % Platelet Count 166 130-400 K/uL Mean Platelet Volume 11.0 H 7.5-10.5 fL Immature Granulocyte % (Auto) 1.5 H 0-1 % Neutrophils (%) (Auto) 80.3 H 40.0-77.0 % Lymphocytes (%) (Auto) 5.8 L 21.0-51.0 % Monocytes (%) (Auto) 10.2 3.0-13.0 % Eosinophils (%) (Auto) 1.7 0.0-8.0 % Basophils (%) (Auto) 0.5 0.0-5.0 % Neutrophils # (Auto) 8.3 H 1.8-7.7 K/uL Lymphocytes # (Auto) 0.6 L 1.0-4.8 K/uL Monocytes # (Auto) 1.1 H 0.1-1.0 K/uL Eosinophils # (Auto) 0.18 0.00-0.70 K/uL Basophils # (Auto) 0.05 0.00-0.20 K/uL Absolute Immature Granulocyte (auto 0.15 0-1 K/uL Nucleated Red Blood Cells 0.0 0.0-0.19 % White Cell Morphology Comment See comments Sodium Level 138 136-145 mmol/L Potassium Level 4.0 3.5-5.1 mmol/L Chloride Level 103 101-111 mmol/L Carbon Dioxide Level 26 21-32 mmol/L Blood Urea Nitrogen 20 H 7-18 mg/dL Creatinine 1.1 0.5-1.3 mg/dL Glomerular Filtration Rate Calc 70 >90 mL/min Random Glucose 77 70-105 mg/dL Total Calcium 8.4 L 8.5-10.1 mg/dL Magnesium Level 2.00 1.80-2.40 mg/dL Troponin I High Sensitivity 71 4-75 ng/L Red Blood Cell Morphology See comments Prothrombin Time 10.3 9.6-11.6 SEC Prothromb Time International Ratio 0.97 0.85-1.15 Activated Partial Thromboplast Time 23.8 L 26.3-35.5 SEC Total Creatine Kinase 180 # 21-232 U/L B-Type Natriuretic Peptide 139 H 0-100 pg/mL Current Medications Medications (Trade) Dose Ordered Sig/Yakov Route PRN Reason Start Time Stop Time Status Last Admin Dose Admin Acetaminophen (TYLenol 500MG TAB) 500 mg Q6H PRN PO MILD PAIN (1-3) 11/05/24 11:30 12/05/24 11:29 11/06/24 00:48 500 MG Acetaminophen (TYLenol 500MG TAB) 1,000 mg HS PO 11/05/24 21:00 12/05/24 20:59 11/05/24 20:07 1,000 MG Albuterol (DUOneb) 1 UDVIAL Q6H PRN IH SHORTNESS OF BREATH 11/05/24 12:00 12/05/24 11:59 11/05/24 13:24 1 UDVIAL Atorvastatin Calcium (LIPItor 40MG) 40 mg DAILY PO 11/06/24 09:00 12/06/24 08:59 11/06/24 12:44 40 MG Clopidogrel Bisulfate (plaVIX 75MG) 75 mg DAILY PO 11/05/24 13:00 12/05/24 12:59 Clopidogrel Bisulfate (plaVIX 75MG) 75 mg DAILY PO 11/06/24 09:00 11/05/24 12:39 DC Enoxaparin Sodium (Lovenox) 30 mg DAILY SQ 11/06/24 09:00 11/06/24 10:27 DC Famotidine (Pepcid 20mg Vial) 20 mg DAILY IV 11/06/24 09:00 11/05/24 12:18 DC Fluoxetine HCl (PROzac 10mg CAP) 10 mg HS PO 11/05/24 21:00 12/05/24 20:59 11/05/24 20:06 10 MG Home Med (Home Medication) (Alfuzosin HCl 10 MG) HS PO 11/05/24 21:00 12/05/24 20:59 Home Med (Home Medication) (Multivit-Minerals/ Folic Acid (Multivit... DAILY PO 11/06/24 09:00 12/06/24 08:59 Hydroxychloroquine Sulfate (PLAQuenil 200MG) 200 mg AM PO 11/06/24 09:00 11/20/24 08:59 11/06/24 12:44 200 MG Isosorbide Mononitrate (Imdur 30mg Sr) 30 mg DAILY PO 11/05/24 13:00 11/06/24 13:30 DC 11/06/24 12:44 30 MG Isosorbide Mononitrate (Imdur 30mg Sr) 30 mg DAILY PO 11/06/24 09:00 11/05/24 12:39 DC Lisinopril (Prinivil 2.5mg) 2.5 mg HS PO 11/05/24 21:00 12/05/24 20:59 11/05/24 20:06 2.5 MG Magnesium Sulfate 50 ml @ 0 mls/hr PROTOCOL PRN IV hypomagnesium 11/05/24 11:30 12/05/24 11:29 11/05/24 20:15 25 MLS/HR Metoprolol Succinate (TopROL XL) 25 mg DAILY PO 11/06/24 09:00 12/06/24 08:59 11/06/24 12:45 25 MG Ondansetron HCl (zoFRAN 4MG INJ) 4 mg Q6H PRN IVP NAUSEA/VOMITING 11/06/24 02:00 12/06/24 01:59 11/06/24 01:58 4 MG Pantoprazole Sodium (PROTonix 40MG TAB) 40 mg DAILY PO 11/06/24 09:00 12/06/24 08:59 11/06/24 12:45 40 MG Potassium Chloride 100 ml @ 100 mls/hr AD PRN IV POTASSIUM PROTOCOL 11/05/24 11:30 12/05/24 11:29 Potassium Chloride (K-Dur/Klor-Con 20meq) 20 meq AD PRN PO POTASSIUM PROTOCOL 11/05/24 11:30 12/05/24 11:29 Potassium Chloride (KCl 10% Elixir 20meq/15ml) 20 meq AD PRN PO POTASSIUM PROTOCOL 11/05/24 11:30 12/05/24 11:29 Ranolazine (Ranexa) 500 mg BID PO 11/06/24 21:00 12/06/24 20:59 Diagnostics / Radiology: [COPY/PASTE HERE IF NO REPORTS PLEASE DELETE SECTION] Assessment: Positive fobt Anemia CAD COPD Plan: EGD offered; however, patient defers Continue cardio workup Consider bleeding scan if hgb worsens VANNA OCAMPO [employer] OPERATOR November 06, 2024 16:39
--- NOTE | 2024-11-06 19:20 | NUR ---
CHRISTIE PRABHAKAR AWARE PT REFUSED EGD IN AM. REFUSAL FORM SIGN AND IN CHART
[2024-11-06] MEDS: RANOLAZINE 500 MG TAB.SR.12H PO SCH (20:38)
--- NOTE | 2024-11-06 22:19 | HMCSR ---
APPROVED REPORT EXAM: Two-dimensional and M-mode echocardiogram with Doppler and color Doppler. INDICATION ICD: Syncope 2D Dimensions RVDd3.4 cmLVEF(%)35.3 (>50%)LA ESV INDEX (BP)39.44 mL/m2 IVSd1.0 (0.7-1.1cm)FS(%)17 % LVDd4.9 (3.8-5.6cm)LA (2D)3.5 (1.6-4.0cm) PWd0.9 (0.7-1.1cm)Ao Root(2D)2.9 (2.0-3.7cm) LVDs4.0 (2.5-4.0cm)LVOT diam2.1 (1.8-2.4cm) IVC diam0.8 cm Deformation Strain Apical 4-19.0 % Apical 2-19.8 % Apical 3-19.9 % Global Strain-19.6 % M-Mode Dimensions EPSS0.8 cm LA (MM)3.4 (1.6-4.0cm) Ao Root(MM)3.1 (2.0-3.7cm) Aortic Valve AoV Vmax1.4 m/Tania Peak GR8.0 mmHgLVOT Vmax1.1 m/s AoV VTI0.3 mAo Mean GR3.7 mmHgLVOT VTI0.23 m MORIAH (VMAX)2.76 cm2AVA (VTI) 2.5 cm2 Mitral Valve MV E Vmax79.4 cm/sDECEL Zics573 ms MV A Nvay901.3 cm/sP 1/2 T97 ms E/A ratio0.8MVA (PHT)2.3 cm2 TDI E/E' Ymmghp26.9E/E' Lateral8.1 Medial E' Peak V6.17 cm/sLateral E' Peak V9.85 cm/s Pulmonary Valve PV Vmax1.0 m/sPV VTI0.22 mPV Mean GR1.8 mmHg PV Peak GR3.7 mmHg Left Ventricle The left ventricle is normal size. There is normal LV segmental wall motion. There is normal left oswald tricular wall thickness. LVEF is 55-60%. The left ventricular diastolic function is normal. Right Ventricle The right ventricle is normal size. The right ventricular systolic function is normal. Atria The left atrium is mildly dilated. The right atrium size is normal. Aortic Valve The aortic valve is normal in structure. No aortic regurgitation is present. There is no aortic valvu lar stenosis. Mitral Valve The mitral valve leaflets open well. Mitral valve leaflets are mildly thickened. Mitral regurgitation is mild. There is no mitral valve stenosis. Tricuspid Valve The tricuspid valve is normal in structure. There is no tricuspid valve regurgitation noted. Pulmonic Valve The pulmonary valve is normal in structure. There is no pulmonic valvular regurgitation. Great Vessels The aortic root is normal in size. The IVC is normal in size and collapses >50% with inspiration. Pericardium There is no pericardial effusion. Conclusion LVEF is 55-60%. The left atrium is mildly dilated. Mitral regurgitation is mild.
[2024-11-07 00:06] VITALS: BP 114/47; PULSE 54; RESP 17; TEMP 97.8
[2024-11-07 04:13] VITALS: BP 110/46; PULSE 60; RESP 18; TEMP 98
[2024-11-07 05:00] LABS: HEMATOCRIT 39.1 % (42-54); MEAN CORPUSCULAR HEMOGLOBIN 26.5 pg (27.0-33.0); MEAN CORPUSCULAR HGB CONC 30.2 g/dL (32.0-36.0); MEAN CORPUSCULAR VOLUME 87.9 fL (79-99); RED BLOOD CELL COUNT(AUTO) 4.45 MIL/uL (4.50-6.20); RED CELL DISTRIBUTION WIDTH 16.1 % (11.0-15.5); WHITE BLOOD COUNT (AUTO) 15.4 K/uL (4.8-10.8)
[2024-11-07 05:20] LABS: ALBUMIN 3.3 g/dL (3.5-5.0); BILIRUBIN,TOTAL 1.7 mg/dL (0.2-1.0); CREATININE 1.2 mg/dL (0.5-1.3); MAGNESIUM 2.2 mg/dL (1.80-2.40); POTASSIUM 4.7 mmol/L (3.5-5.1); TOTAL PROTEIN, SERUM 6.6 g/dL (6.0-8.3)
--- NOTE | 2024-11-07 07:06 | PN ---
[facility] Cardiology Progress Note CARDIOLOGY PROGRESS NOTE NOVEMBER 07, 2024 Problems: 1. Syncope 2. CAD status post aortocoronary bypass graft surgery x3 in 2004 and subsequent stenting of the right coronary artery 2013 at [facility] 3. Diabetes mellitus type 2 4. Dyslipidemia 5. Hypertension 6. Paroxysmal atrial fibrillation 7. high-risk for anticoagulation with history of GI bleeding on aspirin 8. COPD 9. Chronic anemia 10. Iodine allergy The patient had recently been seen in the office and complained of exertional shortness of breath which was felt to be an anginal equivalent. He was scheduled for an outpatient Lexiscan Cardiolite stress test. Prior to completion of the outpatient steady he presented with syncope. Hemoglobin on admission was 12.2 currently 11.8 platelet count [id number]. Potassium 4.7 BUN 27 creatinine 1.2 estimated GFR of 63. Troponins x3 has been normal. Electrocardiogram showed sinus rhythm with PAC and LVH by voltage. No acute ST changes were noted. He has had no arrhythmias since admission. Continues on atorvastatin clopidogrel fluoxetine hydrochloroquine Alfuzosin lisinopril metoprolol succinate pantoprazole potassium protocol. He did complain of headaches with isosorbide which had recently been started as an outpatient. Isosorbide has been stopped and has been placed on ranolazine. Initial plans have been for a CT coronary angiogram. He does have a dye allergy and was premedicated for the procedure however at the time of the procedure his heart rate could not be controlled adequately and the procedure was canceled. He is now scheduled for a Lexiscan Cardiolite stress test which has noted he has been scheduled some outpatient four. I will review results this afternoon and make further recommendations. Overnight he has had no chest pain or shortness of breath. SANTOSH MARTINEZ MD November 07, 2024 07:06
[2024-11-07] MEDS ORDERED: RANO500T2 PO (07:09)
[2024-11-07 08:00] VITALS: BP 132/58; PULSE 52; RESP 17; TEMP 97.6
[2024-11-07 08:11] VITALS: PULSE 59; RESP 18; O2SAT 97
[2024-11-07] MEDS ORDERED: REGADENOSON 0.4 MG/5 ML PF SYG IVP ONE (08:12)
--- NOTE | 2024-11-07 08:15 | NUR ---
PT TAKEN FOR [facility]
--- NOTE | 2024-11-07 09:40 | NUR ---
PT RETURN FROM [facility]
--- NOTE | 2024-11-07 11:10 | NUR ---
PT IS UPSET AND GETTING DRESSED STATES THAT HE IS LEAVING. I EXPLAIN TO PT THERE ARE NO DISCHARGE ORDERS AND IF HE COULD WAIT FOR DR TO SEE [facility] RESULTS. DR AGREED TO WAIT BUT STATES HE WILL BE LEAVING TODAY.
[2024-11-07] MEDS: cefTRIAXone 1G VIAL IVPB SCH (11:45)
--- NOTE | 2024-11-07 11:59 | HMCSR ---
APPROVED REPORT Height: 5 ft 8in Weight: 157 lbs TEST INDICATIONS CAD, Chest Pain The imaging protocol used to acquire images was Rest Tc-99m/stress Tc-99m 1 day Consent: The procedure was explained and understood by the patient. Informerd consent was witnessed Katty CARRASCO RN First, low dose rest was performed then high dose stress. RESTING DATA: The resting ekg shows: KARLA CLAY's Rest SPECT myocardial perfusion imaging was performed in supine position minutes following the intra venous injection of 11 mCi of Tc-99 Sestamibi. Time of rest injection: 07:01: Date: 11/07/2024 PHARMACOLOGIC STRESS: Pharmacologic stress test was performed by injecting regadenoson 0.4 mg IV push followed by the intra venous injection of 28 mCi of Tc-99 Sestamibi. Time of stress injection: 09:11: Date: 11/07/2024 Heart Rate at time of stress injection: 68 bpm. Gated Stress SPECT was performed 60 minutes after stress injection. The images were gated to evaluate regional wall motion and calculate left ventricular ejection fracti on. STRESS DETAILS Reason for Termination: Infusion complete Stress Symptoms: Dyspnea, Flushing Max HR Achieved: 82 bpm % of APMHR Achieved: 67 Max Blood Pressure: 149/69 mmHg Stress ECG: KARLA CLAY's Study quality was good. Lung uptake was Normal. Artifact: increased GI uptake LEFT VENTRICLE The left ventricular ejection fraction was calculated to be 55%.TID = 1.20. LV PERFUSION Stress Perfusion Normal IMPRESSION Equivocally normal pharmacologic nuclear stress test. Conclusion Equivocally normal [id number] stress test with an LVEF of 55% and a TID of 1.20 Increase GI uptake suggestive of artifact. Borderline TID No reversible ischemia observed.
--- NOTE | 2024-11-07 12:09 | DS ---
Discharge Summary Hospital Course Summary: 73-year-old male with history of hypertension, hyperlipidemia, coronary artery disease with prior history of coronary artery bypass grafting in 2004 with history of subsequent stenting of saphenous vein graft to RCA in 2013, COPD, history of nephrolithiasis, status post ureteroscopy with stone basketing and laser lithotripsy by Dr. Garduno on 11/15/2023 who who presented to the hospital secondary to syncope. The patient stated that he was walking down from the steps and he passed out. He denied having any palpitations, chest pain, shortness of breath, dizziness, fever, chills prior to the event. He additionally e has been having intermittent episodes of midsternal chest pain for the past one week. He was scheduled for outpatient stress test but was not able to make it since patient is planning to move [place] of the [place]. He sees Dr. Stock'alejandro as outpatient. Labs in the ED were notable for white count of 10.6, hemoglobin was 12.2, platelet count was 177 K, sodium was 143, potassium was 3.7, creatinine was one point, troponin was negative x2, BNP was [address] atrophy and chronic small-vessel ischemic changes. Chest X-ray with clear lungs. Carotid Doppler no hemodynamically significant stenosis X-ray of the left knee normal examination. No fracture, no dislocation, no foreign bodies noted. 11/06 blood pressure 122/55, afebrile, saturating normal on room air. Hemoglobin 11.9, hematocrit 38.9, platelet count 166. Patient alert and oriented x3, saturating normal on room air. Discussed with the RN, unable to perform coronary angiography CT as heart rate fluctuating. 11/07 patient hemodynamically stable, alert oriented x3, denies dizziness, no chest pain, denies shortness for breath, no nausea, no vomiting, no abdominal discomfort. Stress test done, reported as follows: Conclusion Equivocally normal [id number] stress test with an LVEF of 55% and a TID of 1.20 Increase GI uptake suggestive of artifact. Borderline TID No reversible ischemia observed. Patient would like to be discharged home today. 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 Home Medications: Active Scripts Doxycycline Hyclate (Doxycycline Hyclate) 100 Mg Capsule, 100 MG PO BID for 7 Days, #14 CAP Prov:HUSAM STYLES NP 11/18/23 Prednisone (Prednisone) 20 Mg Tablet, 40 MG PO DAILY for 5 Days, #5 TAB Prov:HUSAM STYLES NP 11/18/23 Reported Medications Clopidogrel Bisulfate (Clopidogrel) 75 Mg Tablet, 1 TAB PO DAILY 11/05/24 Isosorbide Mononitrate (Isosorbide Mononitrate ER) 30 Mg Tab.er.24h, 1 TAB PO DAILY 11/05/24 Acetaminophen with Codeine (Acetaminophen-Cod #3 Tablet) 300 Mg-30 Mg Tablet, 1 TAB PO DAILY PRN for low back pain 11/05/24 Nitroglycerin (Nitroglycerin) 0.4 Mg Tab.subl, 0.4 MG SL AD PRN for CHEST PAIN, TAB.SL 11/10/23 Lisinopril (Lisinopril) 2.5 Mg Tablet, 2.5 MG PO HS, TAB 11/10/23 Metoprolol Succinate (Metoprolol Succinate) 25 Mg Tab.er.24h, 25 MG PO DAILY, TAB 11/10/23 Albuterol Sulfate (Ventolin Hfa/Proventil Hfa/Proair Hfa) 90 Mcg Puff, 90 MCG IH BID PRN for BRONCHOSPASMS, INHALER 2 PUFFS IH BID 09/27/23 Pantoprazole Sodium (Pantoprazole Sodium) 40 Mg Tablet.dr, 40 MG PO DAILY, TAB 09/06/23 Alfuzosin HCl (Alfuzosin HCl) 10 Mg Tab.er.24h, 10 MG PO HS, TAB 08/22/23 Cholecalciferol (Vitamin D3) (Vitamin D3) 125 Mcg (5000 Unit) Tablet, 125 MCG PO HS, TAB 08/22/23 Acetaminophen (Tylenol Extra Strength) 500 Mg Tablet, 1000 MG PO HS, TAB 07/14/23 Multivit-Minerals/Folic Acid (Multivitamin Gummies) 200 Mcg Tab.chew, 200 MCG PO DAILY, TAB.CHEW 07/14/23 Trazodone HCl (Trazodone HCl) 50 Mg Tablet, 50 MG PO HS, TAB 10/28/17 Hydroxychloroquine Sulfate (Hydroxychloroquine Sulfate) 200 Mg Tablet, 200 MG PO AM, TAB 06/11/16 Fluoxetine HCl (Fluoxetine HCl) 10 Mg Tablet, 10 MG PO HS, TAB 11/08/15 Atorvastatin Calcium (Atorvastatin Calcium) 40 Mg Tablet, 40 MG PO DAILY, TAB 11/08/15 Time spent arranging discharge: 31-60 minutes OCTAVIA KENDALL MD November 07, 2024 12:09
--- NOTE | 2024-11-07 13:40 | NUR ---
DISCHARGE PT PIV DC'D PT VERBALIZED UNDERSTANDING OF DISCHARGE INSTRUCTIONS PT GATHERED AND TOOK ALL BELONGINGS HOME MEDS WERE GIVEN BACK TO PT PT HAD NO FURTHER QUESTIONS AT TIME OF DISCHARGE
== END 2024-11-07 14:24 | disposition home or self-care (01) ==
LOC: EDH 08:35 → INTOOBSV 10:29 → EDHIP 10:29 → 3AH 15:51
PROVIDERS: ADMIT Internal Medicine; ATTEND Internal Medicine
DX: R55 Syncope and collapse (principal); R07.9 Chest pain, unspecified; S80.212A Abrasion, left knee, initial encounter; I11.9 Hypertensive heart disease without heart failure; E78.5 Hyperlipidemia, unspecified; I25.10 Atherosclerotic heart disease of native coronary artery without angina pectoris; N40.0 Benign prostatic hyperplasia without lower urinary tract symptoms; J44.9 Chronic obstructive pulmonary disease, unspecified; E11.9 Type 2 diabetes mellitus without complications; I48.0 Paroxysmal atrial fibrillation; D64.9 Anemia, unspecified; R60.0 Localized edema; Z79.899 Other long term (current) drug therapy; Z88.5 Allergy status to narcotic agent; Z87.442 Personal history of urinary calculi; Z96.651 Presence of right artificial knee joint; Z95.1 Presence of aortocoronary bypass graft; Z91.041 Radiographic dye allergy status; Z87.891 Personal history of nicotine dependence; Z79.02 Long term (current) use of antithrombotics/antiplatelets; W19.XXXA Unspecified fall, initial encounter; Y93.01 Activity, walking, marching and hiking; Y92.89 Other specified places as the place of occurrence of the external cause; Y99.8 Other external cause status
CPT/HCPCS: 96365; 96375 ×3; 99285; 96361; 96366; 82550; 83735 ×3; 84484 ×4; 80048 ×2; 83880; 85027 ×2; 85610; 85730; 36415 ×3; 71045; 73562; 70450; 93306; 93356; 93880; 93005; 94640; 85025; 97161; 97116; 97530 ×2; 96367; 80053; 93017; 78452; G0378 ×2; J3475; J0360; J1200; J3490; J2919; J2405; J1885; Q9967; J0696; J2785; A9500 ×2; 75574

== ENCOUNTER 2025-04-22 07:07 | Emergency (ER) | payer OTHER ==
[~2025-04-22] VITALS: Ht 172.7 cm; Wt 76.7 kg
[~2025-04-22 07:07] MED LIST changes: +CLOP75TA32 PO; -DOXY100C5 PO; -PRED20TA3 PO; +RANO500T2 PO
[2025-04-22 08:06] LABS: IMMATURE GRANULOCYTE ABSOLUTE 0.11 K/uL (0-1); NUCLEATED RED BLOOD CELLS 0.0 % (0.0-0.19); PLATELET COUNT (AUTO) 152 K/uL (130-400); RED BLOOD CELL COUNT(AUTO) 4.63 MIL/uL (4.50-6.20); RED CELL DISTRIBUTION WIDTH 15.7 % (11.0-15.5); WHITE BLOOD COUNT (AUTO) 9.0 K/uL (4.8-10.8)
[2025-04-22 08:13] LABS: APPEARANCE,URINE CLEAR (CLEAR); GLUCOSE, URINE (UA) NEGATIVE (NEGATIVE); LEUKOCYTE ESTERASE ,URINE 250 Leu/uL (NEGATIVE); NITRATE,URINE NEGATIVE (NEGATIVE); OCCULT BLOOD,URINE NEGATIVE (NEGATIVE)
[2025-04-22 08:14] LABS: ADD UA MICROSCOPIC YES
[2025-04-22 08:17] LABS: SQUAMOUS EPITHELIAL CELL,UR RARE /HPF (0-2)
[2025-04-22 08:19] LABS: CREATININE 1.2 mg/dL (0.5-1.3); GLOMERULAR FILTR. RATE CALC 62.0 mL/min (>90); GLUCOSE,RANDOM 84.0 mg/dL (70-105); SODIUM SERUM 141.0 mmol/L (136-145); UREA NITROGEN, BLOOD 18.0 mg/dL (7-18)
[2025-04-22 08:22] LABS: ASPARTATE AMINOTRANSFERASE 19.0 U/L (10-37); CREATINE KINASE, TOTAL 143.0 U/L (21-232); TOTAL PROTEIN, SERUM 6.3 g/dL (6.0-8.3)
--- NOTE | 2025-04-22 08:33 | HMCIMG ---
EXAM: CT Head Without IV contrast. CLINICAL HISTORY: diffuse abdominal pain. TECHNIQUE: Axial computed tomography images of the head/brain without intravenous contrast. COMPARISON: None provided. FINDINGS: BRAIN: No evidence of acute hemorrhage. No mass lesion. No CT evidence for acute territorial infarct. No midline shift or extra-axial collections. Diffuse cerebral volume loss in the form of prominent ventricles and cortical sulci. Mild bilateral periventricular white matter hypodensities are seen, consistent with chronic small vessel ischemic changes. A small hypodense focus is seen in the right basal ganglia. VENTRICLES: No hydrocephalus. ORBITS: The orbits are unremarkable. SINUSES AND MASTOIDS: The paranasal sinuses and mastoid air cells are clear. BONES: No fracture. SOFT TISSUES: Unremarkable. IMPRESSION: Diffuse cerebral volume loss with chronic small vessel ischemic changes. Chronic lacunar infarct in the right basal ganglia. No acute intracranial abnormality. /[place]
--- NOTE | 2025-04-22 09:47 | EKG ---
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
--- NOTE | 2025-04-22 10:44 | HMCIMG ---
EXAM: CT Abdomen and Pelvis Without IV contrast CLINICAL HISTORY: pain and constipation TECHNIQUE: Axial computed tomography images of the abdomen and pelvis without intravenous contrast. CONTRAST: No IV contrast. COMPARISON: None provided. FINDINGS: LUNG BASES: The lung bases appear clear. Minimal right pleural effusion. LIVER: Unremarkable. GALLBLADDER AND BILE DUCTS: Post cholecystectomy status. No biliary dilatation. PANCREAS: Unremarkable. SPLEEN: Unremarkable. ADRENAL GLANDS: Unremarkable. KIDNEYS, URETERS, AND BLADDER: 2 calculi in the left kidney measuring 7 mm and 3 mm in the upper/mid calyces. No hydronephrosis. Two large exophytic cysts in the right kidney, the largest measuring 11.8 x 12 x 12.6 cms(APxTRxCC) in the parapelvic region extending till the lower pole. The adjacent branches of the right renal vessels are splayed anteriorly by the cyst. The other cyst is in the upper pole, measuring 8.8 x 9 x 8.4 cms, indenting the adjacent liver. STOMACH AND BOWEL: Unremarkable appearance of the stomach and bowel. No evidence of bowel obstruction. No evidence suggesting enteritis or colitis. Bilateral inguinal hernia predominantly on the right with fat as content. APPENDIX: No evidence of acute appendicitis on CT examination. PERITONEUM: No free fluid. No free air. LYMPH NODES: No lymphadenopathy is evident. REPRODUCTIVE: Enlarged prostate measuring 43gms. VASCULATURE: No evidence of abdominal aortic aneurysm. Atherosclerotic calcification of the abdominal aorta and iliac arteries. BONES: No aggressive appearing osseous lesion. No acute osseous pathology evident. Spondylotic changes in the spine with orthopedic hardware in position in the thoracolumbar region. IMPRESSION: Two non-obstructive calculi in the left kidney measuring 7 mm and 3 mm in the upper/mid calyces. Two large exophytic cysts in the right kidney. Enlarged prostate measuring 43gms. Bilateral inguinal hernia predominantly on the right with fat as content. /[place]
[2025-04-22] MEDS: LACTULOSE 20 GM/30 ML UDCUP PO STA (10:47)
[2025-04-22 10:52] VITALS: BP 158/78; PULSE 54; RESP 18; TEMP 98.4; O2SAT 99
[2025-04-22] MEDS ORDERED: LACT-441 PO (11:05)
--- NOTE | 2025-04-22 11:06 | ERN ---
ED Note History of Present Illness Stated Complaint: ABDOMINAL PAIN Chief Complaint: Abdominal Pain Time Seen by MD: 07:32 Dictation: 75-year-old male presenting to the emergency department with diffuse abdominal pain and constipation over the past few days. Patient denies fever chest pain shortness of breath or vomiting. Allergies: Coded Allergies: iodine (Unverified Allergy, Intermediate, 10/15/15) morphine (Unverified Allergy, Intermediate, 10/15/15) meperidine (Unverified Allergy, Mild, 09/28/23) lidocaine (Unverified Allergy, Unknown, 07/17/23) tramadol (Unverified Allergy, Unknown, BLISTERS, REDNESS, 03/01/16) codeine (Unverified Adverse Reaction, Mild, CONSTIPATION, 10/29/17) PATIENT TOLD NURSE, NOT A TRUE ALLERGY; IT CAUSES CONSTIPATION. Home Meds Active Scripts Ranolazine (RANEXA) 500 Mg Tab.er.12h, 500 MG PO BID, #60 TAB 3 Refills Prov:SANTOSH MARTINEZ MD 11/07/24 Reported Medications Clopidogrel Bisulfate (Clopidogrel) 75 Mg Tablet, 1 TAB PO DAILY 11/05/24 Nitroglycerin (Nitroglycerin) 0.4 Mg Tab.subl, 0.4 MG SL AD PRN for CHEST PAIN, TAB.SL 11/10/23 Lisinopril (Lisinopril) 2.5 Mg Tablet, 2.5 MG PO HS, TAB 11/10/23 Metoprolol Succinate (Metoprolol Succinate) 25 Mg Tab.er.24h, 25 MG PO DAILY, TAB 11/10/23 Albuterol Sulfate (Ventolin Hfa/Proventil Hfa/Proair Hfa) 90 Mcg Puff, 90 MCG IH BID PRN for BRONCHOSPASMS, INHALER 2 PUFFS IH BID 09/27/23 Pantoprazole Sodium (Pantoprazole Sodium) 40 Mg Tablet.dr, 40 MG PO DAILY, TAB 09/06/23 Alfuzosin HCl (Alfuzosin HCl) 10 Mg Tab.er.24h, 10 MG PO HS, TAB 08/22/23 Cholecalciferol (Vitamin D3) (Vitamin D3) 125 Mcg (5000 Unit) Tablet, 125 MCG PO HS, TAB 08/22/23 Acetaminophen (Tylenol Extra Strength) 500 Mg Tablet, 1000 MG PO HS, TAB 07/14/23 Multivit-Minerals/Folic Acid (Multivitamin Gummies) 200 Mcg Tab.chew, 200 MCG PO DAILY, TAB.CHEW 07/14/23 Trazodone HCl (Trazodone HCl) 50 Mg Tablet, 50 MG PO HS, TAB 10/28/17 Hydroxychloroquine Sulfate (Hydroxychloroquine Sulfate) 200 Mg Tablet, 200 MG PO AM, TAB 06/11/16 Fluoxetine HCl (Fluoxetine HCl) 10 Mg Tablet, 10 MG PO HS, TAB 11/08/15 Atorvastatin Calcium (Atorvastatin Calcium) 40 Mg Tablet, 40 MG PO DAILY, TAB 11/08/15 Past Medical History Past Medical History: COPD, High Cholesterol, Heart Disease, Kidney Stone, Pneumonia Additional Past Medical Hx: HX OF PNEUMONIA Surgical History: Cholecystectomy, CABG, Other Surgical History Other: R KNEE, L FOOT, AND BACK SX, KIDNEY STONE PSYCH History: no pertinent psych hx Social History: Smokers, Negative, Lives with family Review of System Dictation Constitutional: Negative for fever,chills, and weight loss Eyes: Negative for injury, pain,redness, and discharge ENT: Negative for injury,pain or swelling Cardiovascular: Negative for chest pain, palpitations, and edema Respiratory: Negative for shortness of breath, cough, and wheezing, Abdomen/GI: Per HPI : Negative for injury, bleeding and discharge MS/Extremity: Negative for injury and deformity Skin: Negative for rash, and discoloration Neuro: Negative for headache, weakness, numbness, tingling, and seizure Initial Vital Sign VS Vital Signs Date Time Temp Pulse Resp B/P (MAP) Pulse Ox O2 Delivery O2 Flow Rate FiO2 04/22/25 07:09 98.4 65 16 136/73 99 Room Air 0 04/22/25 09:34 21 Physical Exam Dictation General: awake, alert, NAD Head/Face: Normocephalic, atraumatic Eyes: PERRL, EOMI, vision at baseline ENT: oral cavity clear, TMs clear, no signs of infection Neck: Trachea midline, supple, no nuchal rigidity Cardiovascular: RRR, normal S1/S2, No MRGs, no JVD Respiratory: CTAB, no respiratory distress, No rales or wheezes Abdomen: Soft, diffuse tenderness to palpation, non-distended, normal bowel sounds, no guarding or rebound. Skin: Warm, dry, normal turgor, no rash MS/Extremity: Pulses equal, no cyanosis, neurovascular intact, FROM Neuro: COAx4, GCS 15, strength 5/5, CN 2-12 intact, normal cerebellar exam, normal gait, Psych: Normal behavior, mood, and affect normal Results (Laboratory/Radiology) Laboratory/Radiology Laboratory Tests Test 04/22/25 07:41 04/22/25 07:52 White Blood Count 9.0 K/uL (4.8-10.8) Red Blood Count 4.63 MIL/uL (4.50-6.20) Hemoglobin 12.2 g/dL (14.0-18.0) L Hematocrit 40.2 % (42-54) L Mean Corpuscular Volume 86.8 fL (79-99) Mean Corpuscular Hemoglobin 26.3 pg (27.0-33.0) L Mean Corpuscular Hemoglobin Concent 30.3 g/dL (32.0-36.0) L Red Cell Distribution Width 15.7 % (11.0-15.5) H Platelet Count 152 K/uL (130-400) Mean Platelet Volume 10.9 fL (7.5-10.5) H Immature Granulocyte % (Auto) 1.2 % (0-1) H Neutrophils (%) (Auto) 71.0 % (40.0-77.0) Lymphocytes (%) (Auto) 14.0 % (21.0-51.0) L Monocytes (%) (Auto) 11.2 % (3.0-13.0) Eosinophils (%) (Auto) 1.9 % (0.0-8.0) Basophils (%) (Auto) 0.7 % (0.0-5.0) Neutrophils # (Auto) 6.4 K/uL (1.8-7.7) Lymphocytes # (Auto) 1.3 K/uL (1.0-4.8) Monocytes # (Auto) 1.0 K/uL (0.1-1.0) Eosinophils # (Auto) 0.17 K/uL (0.00-0.70) Basophils # (Auto) 0.06 K/uL (0.00-0.20) Absolute Immature Granulocyte (auto 0.11 K/uL (0-1) Nucleated Red Blood Cells 0.0 % (0.0-0.19) Red Blood Cell Morphology See comments Sodium Level 141 mmol/L (136-145) Potassium Level 3.8 mmol/L (3.5-5.1) Chloride Level 103 mmol/L (101-111) Carbon Dioxide Level 30 mmol/L (21-32) Blood Urea Nitrogen 18 mg/dL (7-18) Creatinine 1.2 mg/dL (0.5-1.3) Glomerular Filtration Rate Calc 62 mL/min (>90) Random Glucose 84 mg/dL (70-105) Total Calcium 8.7 mg/dL (8.5-10.1) Total Bilirubin 1.5 mg/dL (0.2-1.0) H Direct Bilirubin 0.3 mg/dL (0.0-0.3) Aspartate Amino Transf (AST/SGOT) 19 U/L (10-37) Alanine Aminotransferase (ALT/SGPT) 28 U/L (12-78) Alkaline Phosphatase 101 U/L (50-136) Total Creatine Kinase 143 U/L (21-232) # Troponin I High Sensitivity 51 ng/L (4-75) Total Protein 6.3 g/dL (6.0-8.3) Albumin 3.3 g/dL (3.5-5.0) L Lipase 30 U/L (16-77) Urine Color YELLOW (YELLOW) Urine Appearance CLEAR (CLEAR) Urine pH 5.5 (5.0-8.0) Urine Specific [place] 1.026 (1.001-1.031) Urine Protein NEGATIVE mg/dL (NEGATIVE) Urine Glucose (UA) NEGATIVE mg/dL (NEGATIVE) Urine Ketones NEGATIVE mg/dL (NEGATIVE) Urine Occult Blood NEGATIVE (NEGATIVE) Urine Nitrate NEGATIVE (NEGATIVE) Urine Bilirubin NEGATIVE mg/dL (NEGATIVE) Urine Urobilinogen 0.2 mg/dL (0.2-1.0) Urine Leukocyte Esterase 250 Elizabeth/uL (NEGATIVE) H Urine RBC 2-5 /HPF (0-1) H Urine WBC 2-5 /HPF (0-1) H Urine Squamous Epithelial Cells RARE /HPF (0-2) Urine Bacteria RARE /HPF (None Seen) Labs Reviewed?: Yes EKG Comment: Heart rate 57 normal sinus rhythm normal intervals ED Course ED Course Orders Procedure Category Date Status Time 12 Lead Ekg Tracing- EKG 04/22/25 Complete Technical 07:17 Basic Metabolic Panel LAB 04/22/25 Complete 07:35 Cbc With Differential LAB 04/22/25 Complete 07:35 Hepatic Function Panel LAB 04/22/25 Complete 07:35 Creatine Kinase, Total LAB 04/22/25 Complete 07:35 Lipase LAB 04/22/25 Complete 07:35 Troponin I High LAB 04/22/25 Complete Sensitivity 07:35 Urinalysis Profile LAB 04/22/25 Complete 07:35 Ct Head/Brain W/O CT 04/22/25 Resulted Contrast 07:35 Culture Urine STUART 04/22/25 In Process 08:14 Ct Abd/Pel Wo Con CT 04/22/25 Resulted Renal/Appy 08:32 Lactulose 20 Gm/30 Ml PHA 04/22/25 Complete Udcup (Constulose 10:32 Ketorolac PHA 04/22/25 Complete Tromethamine 15mg/Ml 10:32 Current Medications Medications (Trade) Dose Ordered Sig/Yakov Route PRN Reason Start Time Stop Time Status Last Admin Dose Admin Ketorolac Tromethamine (toRADol) 15 mg ONCE STAT IV 04/22/25 10:32 04/22/25 10:37 DC 04/22/25 10:48 Lactulose (Constulose 20gm/ 30ml Udcup) 20 gm ONCE STAT PO 04/22/25 10:32 04/22/25 10:37 DC 04/22/25 10:47 Vital Signs Date Time Temp Pulse Resp B/P (MAP) Pulse Ox O2 Delivery O2 Flow Rate FiO2 04/22/25 10:52 98.4 54 18 158/78 99 Room Air* 0 04/22/25 09:34 98.4 80 18 161/82 98 Room Air* 0 04/22/25 07:09 98.4 65 16 136/73 99 Room Air 0 Medical Decision Making MDM MDM: Differential diagnosis: Rationale: Tests considered and ordered secondary to shared decision making include: Previous outside records reviewed: Old ER visits. Risk of complication and/or morbidity or mortality of patient management: None Medications-Per medication reconciliation Need for hospitalization: Patient does not meet criteria for hospitalization. Need for emergency major/minor surgery: No There are no social concerns with this patient. Prescription drug management Prescriptions will include symptomatic care Patient's prior external medical records from other ER visits were reviewed by me as indicated. Prior testing and results from previous visits were reviewed. Prior tests were taken into account with medical decision making and resource utilization, independent historian/historians were used to obtain complete medical history. I independently interpreted the test that were performed, results were reviewed by me and considered findings on radiology if ordered. Medical management and examination interpretation discussions were had by me with other qualified healthcare professionals as indicated for the patient's care. 75-year-old male abdominal pain stable exam chronic findings on CT scan no acute process, stable for discharge acute constipation. DX & DISP Disposition: Discharge Departure Impression: Primary Impression: Abdominal pain Additional Impression: Acute constipation Condition: Stable Scripts Lactulose (Lactulose) 10 Gram/15 Ml Solution 10 ML PO BID for constipation for 3 Days, #60 ML 0 Refills Prov: DEION FARAH MD 04/22/25 Referrals: NIKI RABAGO MD (PCP) DEION FARAH MD Apr 22, 2025 11:06
== END 2025-04-22 11:59 | disposition home or self-care (01) ==
LOC: EDH 07:07
DX: K59.09 Other constipation (principal); N20.0 Calculus of kidney; N28.1 Cyst of kidney, acquired; E78.00 Pure hypercholesterolemia, unspecified; F17.200 Nicotine dependence, unspecified, uncomplicated; J44.9 Chronic obstructive pulmonary disease, unspecified; Z79.02 Long term (current) use of antithrombotics/antiplatelets; Z79.899 Other long term (current) drug therapy; Z86.73 Personal history of transient ischemic attack (TIA), and cerebral infarction without residual deficits; Z87.01 Personal history of pneumonia (recurrent); Z87.442 Personal history of urinary calculi; Z88.5 Allergy status to narcotic agent; Z88.8 Allergy status to other drugs, medicaments and biological substances; Z90.49 Acquired absence of other specified parts of digestive tract; Z95.1 Presence of aortocoronary bypass graft
CPT/HCPCS: 99285; 70450; 96374; 82550; 80076; 84484; 80048; 83690; 85025; 87086; 81001; 36415; 74176; 93005; J1885